=== PATIENT | female | born 1950 | race Caucasian/White ===

== ENCOUNTER → 2016-11-15 | Outpatient (REF) | payer OTHER ==
[~2016-11-15] MED LIST: /MELO7TA PO; /ONDA4TA OR; ADV100INH INH; ALBU1.25 IN; ALINIA PO; BENT20TA PO; BENZ100C5 PO; CALC600T9 PO; DIPHENHYDRAMINE PO; ICAPCAP3 PO; LOPERAMIDE PO; METO10TA2 OR; MOBIC PO; MULTCAP9 PO; NASOCORT INH; NASONEX; PAXI20TA OR; PAXI20TA3 PO; PRIL40CA PO; REGL10TA6 PO; TIZA4CAP PO; VIT D PO; antibiotic PO
[2016-11-15 13:30] LABS: BASO % 0.8 % (0.0-1.0); EOS # 0.1 K/mm3 (0.0-0.50); LARGE UNSTAINED CELL # 0.1 K/mm3 (0.0-0.4); LARGE UNSTAINED CELL % 1.6 % (0.0-4.0); LYMPH # 1.9 K/mm3 (1.5-4.5); LYMPH % 28.6 % (24.0-44.0); MEAN CORPUSCULAR HEMOGLOBIN 29.7 pg (27.0-33.0); MEAN CORPUSCULAR HGB CONC 33.6 g/dl (32.0-36.5); MEAN CORPUSCULAR VOLUME 88.4 fl (80.0-96.0); MONO # 0.3 K/mm3 (0.0-0.8); MONO % 4.1 % (0.0-5.0); NEUTROPHILS # 3.9 K/mm3 (1.8-7.7); PLATELET COUNT, AUTOMATED 162 k/mm3 (150-450); RED CELL DISTRIBUTION WIDTH 13.3 % (11.5-14.5); WHITE BLOOD COUNT 6.2 K/mm3 (4.0-10.0)
[2016-11-15 14:08] LABS: ALBUMIN 3.7 GM/DL (3.2-5.2); ALBUMIN/GLOBULIN RATIO 1.42 (1.00-1.93); ALKALINE PHOSPHATASE 70 U/L (45-117); ALT/SGPT 28 U/L (12-78); ANION GAP 6 MEQ/L (8-16); AST/SGOT 17 U/L (15-37); BILIRUBIN,TOTAL 0.4 MG/DL (0.2-1.0); BLOOD UREA NITROGEN 12 MG/DL (7-18); CALCIUM LEVEL 9.6 MG/DL (8.8-10.2); CARBON DIOXIDE LEVEL 29 MEQ/L (21-32); CHLORIDE LEVEL 104 MEQ/L (98-107); CHOLESTEROL LEVEL 192 MG/DL (<200); CREATININE FOR GFR 0.76 MG/DL (0.55-1.02); FREE T4 0.99 NG/DL (0.76-1.46); GLOMERULAR FILTRATION RATE > 60.0 (>45); GLUCOSE, FASTING 96 MG/DL (80-110); POTASSIUM SERUM 4.8 MEQ/L (3.5-5.1); SODIUM LEVEL 139 MEQ/L (136-145); TOTAL PROTEIN 6.3 GM/DL (6.4-8.2); TRIGLYCERIDES LEVEL 103 MG/DL (<150)
== END ==
LOC: M SFHCADAM 08:47
PROVIDERS: ATTEND Nurse Practitioner Family
DX: J01.00 Acute maxillary sinusitis, unspecified (principal); E78.2 Mixed hyperlipidemia; F34.1 Dysthymic disorder; E55.9 Vitamin D deficiency, unspecified

== ENCOUNTER → 2017-01-07 | Outpatient (CLI) | payer MEDICARE, OTHER ==
--- NOTE | 2017-01-07 13:56 | REP ---
Low-dose lung screening CT: Comparison is the CT with IV contrast dated 08/18/2001. There is a small calcified granuloma anteromedially in the right upper lobe on page 42, unchanged in size from the comparison study. There is a calcified granuloma in the left lower lobe on image 63, not significantly changed from the comparison study. There are no new nodules or masses. There is focal discoid atelectasis in the medial segment right middle lobe and inferiorly in the lingula. Impression: Category 1 screening low-dose chest CT. The recommendation is for annual low-dose lung screening CT. Signed by Bhargav Reardon MD 01/07/2017 01:46 P
== END ==
LOC: M RAD 12:38
PROVIDERS: ATTEND Nurse Practitioner Family
DX: F17.210 Nicotine dependence, cigarettes, uncomplicated (principal)

== ENCOUNTER → 2018-08-01 | Outpatient (CLI) | payer MEDICARE, OTHER ==
[~2018-08-01] MED LIST changes: -/MELO7TA PO; -/ONDA4TA OR; +FLON1SPR; +KEFL500C17 PO; +MOBI4TAB PO; +ONDA-1 OR; +PERC5TAB12 PO
--- NOTE | 2018-08-02 08:57 | REP ---
MRI lumbar spine without contrast: History: Degenerative disc disease. Burning in the low back. Herniated discs. Comparison MRI lumbar spine study November 04, 2012. Technique: Sagittal and axial T1 and T2-weighted scans are acquired in the usual fashion with and without fat saturation. Sequences include spin echo, turbo spin-echo, and STIR imaging sequences. MRI findings: There is a mild levoconvex curvature. There is a bilateral L4 spondylolysis and a 12 mm, grade 2 L4-5 spondylolisthesis is again noted. This is felt to be unchanged by my measurement from the 2013 prior study. There is bilateral L4-5 neural foraminal narrowing as a result also unchanged. Diffuse disc bulging is seen at the L4-5 disc level as before. There is borderline canal size. No liang central canal stenosis is seen. There is facet hypertrophy and osteoarthritic sclerosis bilaterally at L4-5. This may be slightly more prominent. At L5-S1, there is a left posterior disc protrusion which is seen extending cranially. This is a new finding. There is left ventral lateral thecal sac compression and left S root displacement and compression. This herniation spans a craniocaudal dimension of 10 mm. It is 8.5 mm in anteroposterior dimension. There is mild osteoarthritic facet hypertrophy bilaterally at L5-S1 as well. Mild facet encroachment on the left neural foramen is also noted. At L3-4, there is mild central canal stenosis due to minimal disc bulging, short pedicles, and ligamentum flavum and facet hypertrophy. This is slightly more prominent due to increase facet and ligamentum flavum hypertrophy. At L2-3, a there is degenerative disc disease with a irregularity of the endplates unchanged. Posterior disc bulging is seen. Mild central canal stenosis is noted. There is minimal ligamentum flavum hypertrophy. These findings are unchanged. At L1-2 there are also degenerative disc changes with Schmorl's nodes and reactive marrow changes. Diffuse disc bulging is seen indenting the thecal sac. No central canal stenosis is seen. Neural foramina appear intact. The tip of the conus medullaris is normal in position and appearance at T12-L1. No extra vertebral abnormality is observed. There is a stable perineural cyst at the S2 level unchanged. Impression: Degenerative spondylosis noted. Multilevel mild central canal stenosis. Changes are generally somewhat more prominent. Bilateral L4 spondylolysis and grade II L4-5 spondylolisthesis persists. There is a new finding in that there is a new left posterior L5-S1 disc extrusion with cranial extension producing thecal sac and left S1 root compression. Electronically Signed by Gabriel Nava MD 08/02/2018 09:49 A
== END ==
LOC: M RAD 17:39
PROVIDERS: ATTEND Physician Assistant Medical
DX: M51.26 Other intervertebral disc displacement, lumbar region (principal); M48.061 Spinal stenosis, lumbar region without neurogenic claudication; M47.816 Spondylosis without myelopathy or radiculopathy, lumbar region

== ENCOUNTER → 2018-10-30 | Outpatient (CLI) | payer MEDICARE, OTHER ==
--- NOTE | 2018-11-05 01:54 | ECWPNPC ---
PATIENT NAME: REYNA CABRERA : 1950 GENDER: FEMALE VISIT DATE: 10/30/2018 DISCHARGE DATE: 10/30/18 1524 VISIT LOCKED DATE TIME: PHYSICIAN: RUBINA RAMOS RESOURCE: RUBINA RAMOS REASON FOR APPOINTMENT 1. BACK HISTORY OF PRESENT ILLNESS PAIN SCREENIN68 YEAR OLD FEMALE IN FOR INITIAL PAIN CONSULT. SHE DESCRIBES THE PAIN ACHING, BURNING, AND NAGGING. SHE ALSO STATES HER PAIN HAS WORSENED RECENTLY SINCE A RECENT LOW BACK INJURY. SHE DOES STATE THAT SHE REFUSES TO GO ON NARCOTICS. RECENT MRI PERFORMED ON 08/01/18 SHOWS DEGENERATIVE SPONYDLOSIS, MULTILEVEL CENTERAL CANAL STENOSIS, L5-S1 DISC EXTRUSION, AND LEFT S1 ROOT COMPRESSION. PATIENT HAS A COMPLAINT OF ACUTE OR CHRONIC PAIN :YES FALL RISK SCREENING: SCREENING : NO FALLS IN THE PAST YEAR. GIL INVENTORY: QUESTIONNAIRE ASSESSEDTBD SCORE VALUE CALCULATED TBD CURRENT MEDICATIONS TAKING BENZONATATE 100 MG CAPSULE 1 CAPSULE ORALLY EVERY 4 HOURS NEEDED TAKING RETAINE C[facility] 0.5 % SOLUTION 1 DROP INTO AFFECTED EYE NEEDED OPHTHALMIC 24 TIME(S) A DAY TAKING ALBUTEROL SULFATE HFA 108 (90 BASE) MCG/ACT AEROSOL SOLUTION 2 PUFFS NEEDED INHALATION EVERY 4 HRS TAKING ADVAIR DISKUS 250-50 MCG/DOSE AEROSOL POWDER BREATH ACTIVATED 1 PUFF INHALATION TWICE A DAY TAKING OMEPRAZOLE 40 MG CAPSULE DELAYED RELEASE 1 CAPSULE ORALLY DAILY TAKING PAROXETINE HCL 40 MG TABLET 1 TABLET IN THE MORNING ORALLY ONCE A DAY TAKING MAY USE 25 MG 3/4 A DROPPER FUL SUBLINGUALLY DAILY TAKING MAY USE NOT-TAKING EXCEDRIN EXTRA STRENGTH 250-250-65 MG TABLET 2 TABLETS NEEDED FOR PAIN ORALLY NEEDED NOT-TAKING ASPIRIN ADULT LOW DOSE 81 MG TABLET DELAYED RELEASE 1 TABLET ORALLY ONCE A DAY DISCONTINUED BUDESONIDE (NASAL) 32 MCG/ACT SUSPENSION 2 PUFFS IN EACH NOSTRIL NASALLY TWICE DAILY DISCONTINUED ATORVASTATIN CALCIUM 10 MG TABLET 1 TABLET ORALLY ONCE A DAY AT BEDTIME DISCONTINUED VITAMIN D 2000 UNIT CAPSULE 1 CAP(S) ORALLY DAILY DISCONTINUED CALCIUM + D 600-200 MG-UNIT TABLET 1 TABLET WITH FOOD ORALLY DAILY DISCONTINUED AREDS OTC TABLET 1 TAB(S) P.O. 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 SINUS TUMOR 1985 DEPRESSION/PANIC ATTACKS/ HIATAL HERNIA/GERD - REINDL CHRONIC PATE- MIGRAINE/CLUSTER 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 DR CHRISTAL JASMINE, DR CARA CHAPMAN-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 - PT IS BEING FOLLOWED FOR RECONSTRUCTIVE SURGERY IN OCTOBER 2012 BACK PAIN - PAIN CLINIC KNEE PAIN -TORN MENISCUS - ORTHO OSTEOPENIA - HIPS DEXA 08/07 FX OF THE TIBIAL PLATEAU RIGHT KNEE ALLERGIES VICODIN: NAUSEA/VOMITING - ALLERGY SURGICAL HISTORY KNEE ARTHROSCOPY C SECTION RIGHT SINUS TUMOR REMOVAL 1985 LEFT CARPAL TUNNEL RELEASE 2001 TOTAL HYSTERECTOMY D/T FOR BLEEDING, BILATERAL OVARIES INTACT COLONOSCOPY - 2007 SEPTOPLASTY ([facility]) 10/2012 EGD REINDL - NORMAL 07/03 CARPAL TUNNEL RELEASE R 8 WISDOM TOOTH 11-16 FAMILY HISTORY FATHER: , MASSIVE HEART ATTACK AT 63 MOTHER: ALIVE 94 YRS, HTN, BLADDER CANCER NONINVASIVE, BOTH EYES MACULAR DEGENERATION, THYROID DISEASE SIBLINGS: ALIVE, BROTHER HAS HTN AND HX. OF ANEURYSM SON(S): ALIVE DAUGHTER(S): ALIVE PATERNAL GRAND FATHER: , ? CANCER PATERNAL GRAND MOTHER: , AL MATERNAL GRAND FATHER: , HTN MATERNAL GRAND MOTHER: 1 BROTHER(S) . 1 SON(S) , 1 DAUGHTER(S) - HEALTHY. BROTHER AAA, HYPERTENSION. SOCIAL HISTORY GENERAL: TOBACCO USE ARE YOU A:CURRENT SMOKER PT. IS CURRENTLY WORKING ON QUITTING WITH PCP ARE YOU INTERESTED IN QUITTING?READY TO QUIT PREVIOUS QUIT ATTEMPTS?YES, MORE THAN 6 MONTHS AGO. COUNSELED THE PATIENT ON TOBACCO USE, CESSATION [id number] HOW MANY CIGARETTES A DAY DO YOU SMOKE?21-30 HOW SOON AFTER YOU WAKE UP DO YOU SMOKE YOUR FIRST CIGARETTE?WITHIN 5 MIN HOW OFTEN DO YOU SMOKE CIGARETTES?EVERY DAY PATIENT COUNSELED ON THE DANGERS OF TOBACCO USE AND URGED TO QUIT:10/30/2018 OTHERS AT HOME: CHILD. EDUCATION LEVEL OF EDUCATION:FINISHED COLLEGE DIET: REGULAR. LANGUAGE LANGUAGES SPOKEN:MALAYSIAN RECREATIONAL DRUG USE DRUG USE?NO EXERCISE: NONE. LEARNING BARRIERS / SPECIAL NEEDS CHANGE FROM LAST VISIT?NO BARRIERS TO LEARNING?NO PAIN CLINIC PFS, CLERGY, PUBLIC HEALTH REFERRALS PFS REFERRAL NEEDED?NO CLERGY REFERRAL NEEDED?NO PUBLIC HEALTH REFERRAL NEEDED?NO WAS THE PROVIDER NOTIFIED OF ANY PERTINENT INFO?NO HAS THE PATIENT BEEN EDUCATED REGARDING HIS/HER PLAN OF CARE?YES HAS THE PATIENT BEEN EDUCATED REGARDING PAIN, THE RISK FOR PAIN, THE IMPORTANCE OF EFFECTIVE PAIN MANAGEMENT, AND THE PAIN ASSESSMENT PROCESS?YES LATEX QUESTIONNAIRE LATEX ALLERGY : HAVE YOU EVER DEVELOPED ANY TYPE OF REACTION AFTER HANDLING LATEX PRODUCTS SUCH RUBBER GLOVES, CONDOMS, DIAPHRAGMS, BALLOONS, SOCKS, OR UNDERWEAR?NO LATEX ALLERGY : HAVE YOU EVER DEVELOPED ANY TYPE OF REACTION DURING OR AFTER DENTAL APPOINTMENT, VAGINAL/RECTAL EXAMINATION, SURGICAL PROCEDURE, OR ANY OTHER EXPOSURE?NO LATEX RISK : HAVE YOU EVER HAD ANY DIFFICULTY BREATHING OR HIVES AFTER EATING OR HANDLING ANY FRUITS, OR VEGETABLES; SUCH KIWI, BANANAS, STONE FRUITS, OR CHESTNUTSNO LATEX RISK : DO YOU HAVE A PREVIOUS PERSONAL HISTORY OF MORE THAN NINE SURGERIES, SPINA BIFIDA, OR REPEATED CATHERTIZATIONS? NO LATEX RISK : ARE YOU FREQUENTLY EXPOSED TO LATEX PRODUCTS IN YOUR OCCUPATION?NO DATE ASKED : 10/30/2018 CAFFEINE CAFFEINE USE?YES HOW OFTEN AND HOW MUCH? 6 CUPS OF COFFEE PER DAY ADVANCE DIRECTIVE ADVANCE DIRECTIVE DISCUSSED WITH PATIENT:YES 10/30/18 @ 1438 PT. DECLINES INFORMATION LATTER DAY [id number] YAZIDISM MARITAL STATUS: .. 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 HOSPITALIZATION/MAJOR DIAGNOSTIC PROCEDURE PARASITIC INFECTION 09/2010 REVIEW OF SYSTEMS REVIEWED BY: PROVIDER: GELA PEÑA . CONSTITUTIONAL: ANY CHANGE IN YOUR MEDICAL CONDITION? YES, BRONCHITIS 09/26/18 . CHILLS NO . FEVER NO . INFECTION: DO YOU HAVE NEW INFECTIONS? NO . DO YOU HAVE HISTORY OF MRSA? NO . MUSCULOSKELETAL: ANY NEW PATTERNS OF PAIN OR NUMBNESS? YES, LOW BACK DOWN BILATERAL LEGS . SYTEMIC LUPUS NO . GASTROENTEROLOGY: ANY NEW CHANGE IN BOWEL CONTROL? YES, PCP AWARE OF CONSTIPATION . BARRETTS ESOPHAGUS NO . CIRRHOSIS NO . HEPATITIS NO . LIVER FAILURE NO . ACID REFLUX YES . UNEXPLAINED WEIGHT LOSS NO . GENITOURINARY: ANY NEW CHANGE IN BLADDER CONTROL? NO . IS THERE A CHANCE YOU COULD BE ? NO . HEMATOLOGY/LYMPH: DO YOU TAKE ANY BLOOD THINNERS? (FOR EXAMPLE- COUMADIN, PLAVIX, AGGRENOX, PLATEL, PRADAXA, OR XARELTO) NO . WHEN WAS YOUR LAST DOSE? DATE: TIME: . LOW PLATELET COUNT NO . SICKLE CELL DISEASE NO . VON WILLIEBRANDS NO . FACTOR V LEIDEN NO . THALLASEMIA NO . ANEMIA NO . EASY BRUISING NO . NEUROLOGY: HAVE YOU FALLEN IN THE PAST 12 MONTHS? YES, SLIPPED ON ICE, TRIPPED OVER A RUG . ANY NEW EXTREMITY NUMBNESS OR WEAKNESS? YES,BILATER HIPS, GROIN,UPPER THIGHS . HEAD INJURY NO . DEMENTIA NO . CEREBRAL PALSY NO . MULTIPLE SCLEROSIS NO . DIZZINESS NO . HEADACHE FREQUENT . STROKES NO . VERTIGO NO . CARDIOLOGY: DO YOU HAVE A PACEMAKER OR DEFIBRILLATOR? NO . ANGINA NO . HEART ATTACK NO . HEART SURGERY NO . CONGESTIVE HEART FAILURE/FLUID OVERLOAD NO . CHEST PAIN NO . HIGH BLOOD PRESSURE NO . IRREGULAR HEART BEAT NO . RESPIRATORY: HAVE YOU BEEN SICK IN THE PAST WEEK? NO . FEVER NO . FLU LIKE SYMPTOMS? NO . CPAP NO . BYPAP NO . ASTHMA NO . EMPHYSEMA NO . CHRONIC LUNG DISEASES YES, COPD . SHORTNESS OF BREATH ON EXERTION NO . DO YOU USE ANY TYPE OF TOBACCO (SMOKE, SMOKELESS, CHEW)? YES . COUGH NO . SNORING NO . INTEGUMENTARY: DO YOU HAVE ANY RASHES OR OPEN SORES? NO . ALLERGIC/IMMUNO: ARE YOU ALLERGIC TO IV DYE? NO . ANY NEW ALLERGIES? NO . PSYCHIATRIC: DO YOU HAVE THOUGHTS OF HURTING YOURSELF OR SOMEONE ELSE? NO . ARE YOU ABUSED, NEGLECTED, OR IN AN UNSAFE ENVIRONMENT? NO . ENDOCRINOLOGY: ARE YOU DIABETIC? NO . THYROID DISORDER NO . OTHER: DO YOU NEED ANY PRESCRIPTIONS? NO, DO NOT WANT NARCOTICS . IF YES, PLEASE LIST: ____ . ANY NEW PROBLEMS WITH YOUR MEDICATIONS? NO . WHEN DID YOU LAST EAT? ____ . WHEN DID YOU LAST DRINK? ____ . WHAT DID YOU LAST DRINK? ____ . NAME OF PERSON DRIVING YOU HOME? ____ . DO YOU HAVE ANY OTHER QUESTIONS OR CONCERNS NO . VITAL SIGNS WT 150.4 LBS, HT 64 IN, BMI 25.81 INDEX, BP 139/71 MM HG, HR 86 /MIN, RR 18 /MIN, TEMP 97.3 F, OXYGEN SAT % 92%, SAFE IN ENV? (Y/N) YES, NA INITIALS AW 1352, REVIEWED BY: FAVIOLA. EXAMINATION GENERAL EXAMINATION: GENERALNO ACUTE DISTRESS, WELL NOURISHED AND HYDRATED. PSYCHAPPROPRIATE MOOD AND AFFECT . LUNGS:CLEAR TO AUSCULTATION BILATERALLY, NO WHEEZES, RHONCHI, RALES. HEART:NO MURMURS, REGULAR RATE AND RHYTHM. BACK: POINT TENDER LOWER LUMBAR AREA, POSITIVE STRAIGHT LEG RAISE TEST. DIAGNOSTIC TESTS REVIEWEDRECENT MRI REVIEWED 09/26/18. ASSESSMENTS SPONDYLOSIS OF LUMBOSACRAL JOINT - M47.817 (PRIMARY) TREATMENT SPONDYLOSIS OF LUMBOSACRAL JOINT START DICLOFENAC SODIUM TABLET DELAYED RELEASE, 50 MG, 1 TABLET WITH FOOD OR MILK, ORALLY, THREE TIMES A DAY, 30 DAY(S), 90 CLINICAL NOTES: 64 YEAR OLD FEMALE IN FOR NEW PATIENT CONSULT CONCERNING LOW BACK PAIN WITH RADICULOPATHY. GIVEN PRESENTING SYMPTOMS AND RESULTS OF PHYSICAL EXAMINATION RECOMMENDED STARTING DICLOFENAC 50MG TID PRN, AND LESI OF L4-L5, L5-S1. PATIENT HAS EXPRESSED UNDERSTANDING OF AND WAS IN AGREEMENT WITH TX PLAN. GIVEN TIME TO ASK QUESTIONS AND EXPRESS CONCERNS. ENCOURAGED TO CALL THE OFFICE SHOULD HAVE FURTHER QUESTIONS. . OTHERS NOTES: LESI L4-L5, L5-S1,OPTIONS: SPINAL CORTICOSTEROID INJECTION MATERIAL WAS PRINTED. PROCEDURE CODES [id number] ESTABILISHED PATIENT [facility] CHARGE DISPOSITION & COMMUNICATION FOLLOW UP POST PROCEDURE (REASON: LESI L4,L5,L5-S1) ELECTRONICALLY SIGNED BY SANTOSH MANDEL ON 11/04/2018 AT 09:55 AM EDT DISCLAIMER : THIS IS A VISIT SUMMARY EXTRACTED FROM THE [employer] CHART. IT IS NOT A COPY OF THE [employer] PROGRESS NOTE. LELIA
== END ==
LOC: M PAIN 14:00
PROVIDERS: ATTEND Family Medicine
DX: M47.817 Spondylosis without myelopathy or radiculopathy, lumbosacral region (principal); E78.2 Mixed hyperlipidemia; J32.9 Chronic sinusitis, unspecified; J30.9 Allergic rhinitis, unspecified; F32.9 Major depressive disorder, single episode, unspecified; F41.0 Panic disorder [episodic paroxysmal anxiety]; K44.9 Diaphragmatic hernia without obstruction or gangrene; K21.9 Gastro-esophageal reflux disease without esophagitis; M85.80 Other specified disorders of bone density and structure, unspecified site; F17.210 Nicotine dependence, cigarettes, uncomplicated; Z79.899 Other long term (current) drug therapy; Z88.5 Allergy status to narcotic agent

== ENCOUNTER → 2018-12-16 | Outpatient (CLI) | payer MEDICARE, OTHER ==
[~2018-12-16] MED LIST changes: +BUPIVACAINE HCL 0.25% 30 ML VIAL As Ordered ONE; +ISOVUE-M 200 41% 20ML VIAL (Q9966) As Ordered ONE; +LIDOCAINE 1% SDV INJ 30 ML VIAL As Ordered ONE; +TRIAMCINOLONE ACETONIDE SUSP 40 MG/ML VIAL (J3301) As Ordered ONE; +diazePAM 5 MG TAB As Ordered ONE; +oxyCODONE 5MG TAB As Ordered ONE
--- NOTE | 2018-12-16 18:35 | REP ---
FLUOROSCOPIC GUIDANCE FOR BILATERAL LUMBAR FACET BLOCK: 12/16/2018. Clinical history: Back pain. Findings: Two images from C-arm fluoroscopy provided to Dr. Myrick of the pain clinic for lumbar facet block. [place] at the L4-5 and L5-S1 facets are seen on the single image for each side. Fluoroscopy time: 23 seconds. Electronically Signed by Constantin Araiza MD 12/16/2018 07:47 P
--- NOTE | 2018-12-20 00:10 | ECWPNPC ---
PATIENT NAME: REYNA CABRERA : 1950 GENDER: FEMALE VISIT DATE: 12/16/2018 DISCHARGE DATE: 12/16/18 1138 VISIT LOCKED DATE TIME: PHYSICIAN: BEAR GOLDSTEIN MD RESOURCE: BEAR GOLDSTEIN MD REASON FOR APPOINTMENT 1. BILATERAL L4-L5, L5-S1 FACET BLOCK HISTORY OF PRESENT ILLNESS HISTORY OF PRESENT ILLNESS: PAIN THE PATIENT DESCRIBES THE PAIN... 68 YEAR OLD FEMALE PATIENT WITH A HISTORY OF CHRONIC LOW BACK PAIN. THE PATIENT DESCRIBES THE PAIN 6-9/10 DEPENDING ON PHYSICAL ACTIVITY. THE PATIENT STATES THE PAIN BEGINS IN HER LOW BACK AND RADIATES INTO HER HIPS. THE PATIENT SAYS HER PAIN FEELS LIKE A BURNING SENSATION IN HER LOWER BACK AREA. PATIENT DENIES UNEXPLAINABLE WEIGHT LOSS, FEVER, CHILLS, NEW CHANGES ON HER URINARY OR BOWEL CONTROL. FALL RISK SCREENING: SCREENING :NO FALLS REPORTED IN THE LAST YEAR CURRENT MEDICATIONS TAKING BENZONATATE 100 MG CAPSULE 1 CAPSULE ORALLY EVERY 4 HOURS NEEDED TAKING RETAINE CMC 0.5 % SOLUTION 1 DROP INTO AFFECTED EYE NEEDED OPHTHALMIC 24 TIME(S) A DAY TAKING ALBUTEROL SULFATE HFA 108 (90 BASE) MCG/ACT AEROSOL SOLUTION 2 PUFFS NEEDED INHALATION EVERY 4 HRS TAKING ADVAIR DISKUS 250-50 MCG/DOSE AEROSOL POWDER BREATH ACTIVATED 1 PUFF INHALATION TWICE A DAY TAKING OMEPRAZOLE 40 MG CAPSULE DELAYED RELEASE 1 CAPSULE ORALLY DAILY TAKING PAROXETINE HCL 40 MG TABLET 1 TABLET IN THE MORNING ORALLY ONCE A DAY TAKING MAY USE 25 MG CBD OIL 3/4 A DROPPER FUL SUBLINGUALLY DAILY TAKING DICLOFENAC SODIUM 50 MG TABLET DELAYED RELEASE 1 TABLET WITH FOOD OR MILK ORALLY THREE TIMES A DAY TAKING EXCEDRIN EXTRA STRENGTH 250-250-65 MG TABLET 2 TABLETS NEEDED FOR PAIN ORALLY NEEDED NOT-TAKING MAY USE NOT-TAKING ASPIRIN ADULT LOW DOSE 81 MG TABLET DELAYED RELEASE 1 TABLET ORALLY ONCE A DAY MEDICATION LIST REVIEWED AND RECONCILED WITH THE PATIENT PAST MEDICAL HISTORY DYSLIPIDEMIA- MIXED HYPERLIPIDEMIA S/P CARDIAC CATH D/T ABN EKG RECURRENT SINUSITIS - IMPROVED S/P SURGERY ALLERGIC RHINITIS RIGHT ETHMOID TUMOR THAT WAS RESECTED IN THE EARLY RT SINUS TUMOR 1985 DEPRESSION/PANIC ATTACKS/ HIATAL HERNIA/GERD - REINDL CHRONIC PATE- MIGRAINE/CLUSTER 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 DR CHRISTAL JASMINE, DR CARA CHAPMAN-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 - PT IS BEING FOLLOWED FOR RECONSTRUCTIVE SURGERY IN OCTOBER 2012 BACK PAIN - PAIN CLINIC KNEE PAIN -TORN MENISCUS - ORTHO OSTEOPENIA - HIPS DEXA 08/07 FX OF THE TIBIAL PLATEAU RIGHT KNEE ALLERGIES VICODIN: NAUSEA/VOMITING - ALLERGY SURGICAL HISTORY KNEE ARTHROSCOPY C SECTION RIGHT SINUS TUMOR REMOVAL 1985 LEFT CARPAL TUNNEL RELEASE 2001 TOTAL HYSTERECTOMY D/T FOR BLEEDING, BILATERAL OVARIES INTACT COLONOSCOPY -NL 2007 SEPTOPLASTY ([facility]) 10/2012 EGD REINDL - NORMAL 07/03 CARPAL TUNNEL RELEASE R 8 WISDOM TOOTH 11-16 FAMILY HISTORY FATHER: , MASSIVE HEART ATTACK AT 65 MOTHER: ALIVE 94 YRS, HTN, BLADDER CANCER NONINVASIVE, BOTH EYES MACULAR DEGENERATION, THYROID DISEASE SIBLINGS: ALIVE, BROTHER HAS HTN AND HX. OF ANEURYSM SON(S): ALIVE DAUGHTER(S): ALIVE PATERNAL GRAND FATHER: , ? CANCER PATERNAL GRAND MOTHER: , [place] MATERNAL GRAND FATHER: , HTN MATERNAL GRAND MOTHER: 1 BROTHER(S) . 1 SON(S) , 1 DAUGHTER(S) - HEALTHY. BROTHER AAA, HYPERTENSION. SOCIAL HISTORY GENERAL: TOBACCO USE ARE YOU A:CURRENT SMOKER PT. IS CURRENTLY WORKING ON QUITTING WITH PCP ARE YOU INTERESTED IN QUITTING?READY TO QUIT PREVIOUS QUIT ATTEMPTS?YES, MORE THAN 6 MONTHS AGO. COUNSELED THE PATIENT ON TOBACCO USE, CESSATION [id number]/27/2019 HOW MANY CIGARETTES A DAY DO YOU SMOKE?21-30 HOW SOON AFTER YOU WAKE UP DO YOU SMOKE YOUR FIRST CIGARETTE?WITHIN 5 MIN HOW OFTEN DO YOU SMOKE CIGARETTES?EVERY DAY PATIENT COUNSELED ON THE DANGERS OF TOBACCO USE AND URGED TO QUIT:12/16/2018 OTHERS AT HOME: CHILD. EDUCATION LEVEL OF EDUCATION:FINISHED COLLEGE DIET: REGULAR. LANGUAGE LANGUAGES SPOKEN:ICELANDIC RECREATIONAL DRUG USE DRUG USE?NO EXERCISE: NONE. LEARNING BARRIERS / SPECIAL NEEDS CHANGE FROM LAST VISIT?NO BARRIERS TO LEARNING?NO PAIN CLINIC PFS, CLERGY, PUBLIC HEALTH REFERRALS PFS REFERRAL NEEDED?NO CLERGY REFERRAL NEEDED?NO PUBLIC HEALTH REFERRAL NEEDED?NO WAS THE PROVIDER NOTIFIED OF ANY PERTINENT INFO?NO HAS THE PATIENT BEEN EDUCATED REGARDING HIS/HER PLAN OF CARE?YES HAS THE PATIENT BEEN EDUCATED REGARDING PAIN, THE RISK FOR PAIN, THE IMPORTANCE OF EFFECTIVE PAIN MANAGEMENT, AND THE PAIN ASSESSMENT PROCESS?YES LATEX QUESTIONNAIRE LATEX ALLERGY : HAVE YOU EVER DEVELOPED ANY TYPE OF REACTION AFTER HANDLING LATEX PRODUCTS SUCH RUBBER GLOVES, CONDOMS, DIAPHRAGMS, BALLOONS, SOCKS, OR UNDERWEAR?NO LATEX ALLERGY : HAVE YOU EVER DEVELOPED ANY TYPE OF REACTION DURING OR AFTER DENTAL APPOINTMENT, VAGINAL/RECTAL EXAMINATION, SURGICAL PROCEDURE, OR ANY OTHER EXPOSURE?NO LATEX RISK : HAVE YOU EVER HAD ANY DIFFICULTY BREATHING OR HIVES AFTER EATING OR HANDLING ANY FRUITS, OR VEGETABLES; SUCH KIWI, BANANAS, STONE FRUITS, OR CHESTNUTSNO LATEX RISK : DO YOU HAVE A PREVIOUS PERSONAL HISTORY OF MORE THAN NINE SURGERIES, SPINA BIFIDA, OR REPEATED CATHERIZATIONS? NO LATEX RISK : ARE YOU FREQUENTLY EXPOSED TO LATEX PRODUCTS IN YOUR OCCUPATION?NO DATE ASKED : 10/30/2018 CAFFEINE CAFFEINE USE?YES HOW OFTEN AND HOW MUCH? 6 CUPS OF COFFEE PER DAY ADVANCE DIRECTIVE ADVANCE DIRECTIVE DISCUSSED WITH PATIENT:YES PATIENT DECLINES HCP INFORMATION AT THIS TIME. CHRISTIANITY [id number] SCIENTOLOGIST MARITAL STATUS: .. 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 REVIEWED WITH PATIENT 12/16/18 4686 JS. HOSPITALIZATION/MAJOR DIAGNOSTIC PROCEDURE PARASITIC INFECTION 09/2010 REVIEW OF SYSTEMS REVIEWED BY: PROVIDER: BEAR GOLDSTEIN MD . CONSTITUTIONAL: ANY CHANGE IN YOUR MEDICAL CONDITION? NO . CHILLS NO . FEVER NO . INFECTION: DO YOU HAVE NEW INFECTIONS? NO . DO YOU HAVE HISTORY OF MRSA? NO . MUSCULOSKELETAL: ANY NEW PATTERNS OF PAIN OR NUMBNESS? NO . GASTROENTEROLOGY: ANY NEW CHANGE IN BOWEL CONTROL? NO . GENITOURINARY: ANY NEW CHANGE IN BLADDER CONTROL? NO . IS THERE A CHANCE YOU COULD BE ? NO . HEMATOLOGY/LYMPH: DO YOU TAKE ANY BLOOD THINNERS? (FOR EXAMPLE- COUMADIN, PLAVIX, AGGRENOX, PLATEL, PRADAXA, OR XARELTO) NO . WHEN WAS YOUR LAST DOSE? DATE: TIME: . NEUROLOGY: HAVE YOU FALLEN IN THE PAST 12 MONTHS? YES, STATES PRIOR TO LAST VISIT, DISCUSSED AT LAST VISIT . ANY NEW EXTREMITY NUMBNESS OR WEAKNESS? NO . CARDIOLOGY: DO YOU HAVE A PACEMAKER OR DEFIBRILLATOR? NO . RESPIRATORY: HAVE YOU BEEN SICK IN THE PAST WEEK? NO . FEVER NO . FLU LIKE SYMPTOMS? NO . COUGH NO . INTEGUMENTARY: DO YOU HAVE ANY RASHES OR OPEN SORES? NO . ALLERGIC/IMMUNO: ARE YOU ALLERGIC TO IV DYE? NO . ANY NEW ALLERGIES? NO . PSYCHIATRIC: DO YOU HAVE THOUGHTS OF HURTING YOURSELF OR SOMEONE ELSE? NO . ARE YOU ABUSED, NEGLECTED, OR IN AN UNSAFE ENVIRONMENT? NO . ENDOCRINOLOGY: ARE YOU DIABETIC? NO . OTHER: DO YOU NEED ANY PRESCRIPTIONS? NO . IF YES, PLEASE LIST: ____ . ANY NEW PROBLEMS WITH YOUR MEDICATIONS? NO . WHEN DID YOU LAST EAT? ____12/15/18 1900 . WHEN DID YOU LAST DRINK? ____12/16/18 0645 . WHAT DID YOU LAST DRINK? ____WATER . NAME OF PERSON DRIVING YOU HOME? ____ESTRELLA MTZ . DO YOU HAVE ANY OTHER QUESTIONS OR CONCERNS NO . VITAL SIGNS WT 147.8 LBS, HT 64 IN, BMI 25.37 INDEX, BP 139/73 MM HG, HR 61 /MIN, RR 18 /MIN, TEMP 97.4 F, OXYGEN SAT % 97%, SAFE IN ENV? (Y/N) YES, NA INITIALS WI 08:47, REVIEWED BY: LUCIEN. EXAMINATION GENERAL EXAMINATION: PATIENT IS ALERT O X 3 AND COOPERATIVE. PAIN INCREASES OVER THE LUMBAR FACET JOINTS WITH EXTENSION AND LATERAL ROTATION OF THE BACK. MRI OF THE LUMBAR SPINE DONE ON 08/01/2018 SHOWS GRADE 2 L4-L5 SPONDYLOLISTHESIS AND FACET ARTHROPATHY CHANGES AT L4-L5 AND L5-S1 LEVELS. ASSESSMENTS SPONDYLOSIS OF LUMBOSACRAL JOINT - M47.817 (PRIMARY) SPONDYLOSIS OF LUMBAR REGION WITHOUT MYELOPATHY OR RADICULOPATHY - M47.816 TREATMENT SPONDYLOSIS OF LUMBOSACRAL JOINT SMC FACET BLOCK (PAIN)[id number] CLINICAL NOTES: WE DISCUSSED SEVERAL ISSUES WITH MS. CABRERA'S PAIN MANAGEMENT CASE. DUE TO THE LUMBAR SPONDYLOSIS, I WOULD LIKE TO MOVE FORWARD WITH A THERAPEUTIC LUMBAR FACET BLOCK AT THIS TIME. WE DISCUSSED THE BENEFITS, RISKS, AND ALTERNATIVES OF THE INJECTION AND THE PATIENT WOULD LIKE TO PROCEED. THE PATIENT WILL FOLLOW UP IN SEVERAL WEEKS AFTER THE INJECTION. INSTRUCTIONS WERE GIVEN, QUESTIONS WERE ANSWERED, PATIENT REPORTS UNDERSTANDING AND AGREES WITH THE PLAN. I, MISAEL MAGALLANES, DOCUMENTED THE ABOVE INFORMATION ACTING A SCRIBE FOR DR. GOLDSTEIN. I HAVE REVIEWED THE ABOVE DOCUMENT, WRITTEN BY MISAEL MAGALLANES SCRIBBalbir AND I VERIFY THAT IT IS ACCURATE. . PROCEDURES PN LUMBAR FACET BLOCK THERAPEUTIC PRE PROCEDURE DIAGNOSIS LUMBAR SPONDYLOSIS, LUMBOSACRAL SPONDYLOSIS POST PROCEDURE DIAGNOSIS LUMBAR SPONDYLOSIS, LUMBOSACRAL SPONDYLOSIS PROCEDURE BILATERAL L4 - L5, L5 - S1 LUMBAR FACET THERAPEUTIC BLOCK SURGEON DR. BEAR GOLDSTEIN BOWLING BALL ASSEMBLER NONE ANESTHESIA LOCAL PRE PROCEDURE NOTE THE PATIENT HAS A HISTORY OF CHRONIC LOW BACK PAIN. I EVALUATED THE PATIENT AND REVIEWED THE CHART. I WENT OVER THE RISKS, ALTERNATIVES, AND BENEFITS ASSOCIATED WITH THIS PROCEDURE. THE PATIENT WOULD LIKE TO PROCEED AND GIVE CONSENT TO PERFORMED THE PROCEDURE. THE PATIENT DENIES UNEXPLAINABLE WEIGHT LOSS, FEVER, CHILLS, OR NEW CHANGES IN URINARY OR BOWEL CONTROL DESCRIPTION OF PROCEDURE THE PATIENT WAS BROUGHT TO THE PROCEDURE ROOM AND PLACED IN THE PRONE POSITION. THE LUMBOSACRAL AREA WAS CLEANED WITH CHLORAPREP SOLUTION AND DRAPED ASEPTICALLY. THE PROCEDURE WAS DONE UNDER STERILE CONDITIONS. I CHECKED LATERALITY AND THE LEVEL WHERE THE PROCEDURE WAS GOING TO BE PERFORMED WITH THE PATIENT AND THE SUPPORTING STAFF AT THE MOMENT OF THE TIME OUT IN THE PROCEDURE ROOM. UNDER FLUOROSCOPIC GUIDANCE, THE TARGET POINT WAS SELECTED AT THE RIGHT AND LEFT L4-L5, AND RIGHT AND LEFT L5-S1 FACET JOINTS. TARGET POINT WAS SELECTED AFTER LATERAL ROTATION AND TILT OF THE MAGNIFIER OF THE C-ARM. LIDOCAINE 0.5% WAS USED TO NUMB THE SKIN AND THE SUBCUTANEOUS TISSUE BELOW IT. SPINAL NEEDLES, 22-GAUGE, WERE ADVANCED UNDER FLUOROSCOPIC GUIDANCE AND FOLLOWING PATIENT FEEDBACK UNTIL THE TARGETS WERE TOUCHED. THE POSITION OF THE NEEDLES WAS VERIFIED WITH AP AND LATERAL VIEWS. AFTER PROPER POSITION OF THE NEEDLES WAS ACHIEVED, ISOVUE M-200 CONTRAST WAS INJECTED SHOWING ADEQUATE SPREAD OF THE DYE. THEN A SOLUTION OF 1.9 ML OF BUPIVACAINE 0.125% OF KENALOG 10 MG WAS INJECTED AT EACH SITE. THERE WAS NO EVIDENCE OF BLOOD, PARESTHESIA OR CEREBROSPINAL FLUID DURING THE PROCEDURE. THE PATIENT WAS SENT TO THE RECOVERY ROOM. THE PATIENT WAS MOVING THE EXTREMITIES AND DOING WELL. THERE WAS NO COMPLICATION DURING THE PROCEDURE. FLUOROSCOPY TIME WAS 23 SECONDS POST PROCEDURE NOTE THE PATIENT WILL BE SEEN IN A FOLLOW UP IN THE NEXT FEW WEEKS. INSTRUCTIONS WERE GIVEN, QUESTIONS WERE ANSWERED, AND THE PATIENT EXPRESSED UNDERSTANDING AND AGREES WITH THE PLAN. I, MISAEL MAGALLANES, DOCUMENTED THE ABOVE INFORMATION ACTING A SCRIBE FOR DR. GOLDSTEIN. I HAVE REVIEWED THE ABOVE DOCUMENT, WRITTEN BY MISAEL MAGALLANES SCRIBBalbir AND I VERIFY THAT IT IS ACCURATE. PROCEDURE CODES 74788 INJ PARAVERT F JNT L/S 1 LEV, MODIFIERS: 50 [id number] INJ PARAVERT F JNT L/S 2 LEV, MODIFIERS: 50 [id number] RADXPS IN END [id number] PXD DISPOSITION & COMMUNICATION FOLLOW UP 3 WEEKS ELECTRONICALLY SIGNED BY BEAR GOLDSTEIN MD, MD ON 12/19/2018 AT 04:58 PM EDT DISCLAIMER : THIS IS A VISIT SUMMARY EXTRACTED FROM THE [email or web address] CHART. IT IS NOT A COPY OF THE [email or web address] PROGRESS NOTE. MTDD
== END ==
LOC: M PAIN 09:15
PROVIDERS: ATTEND Anesthesiology
DX: G89.29 Other chronic pain (principal); M47.817 Spondylosis without myelopathy or radiculopathy, lumbosacral region; M47.816 Spondylosis without myelopathy or radiculopathy, lumbar region; M54.5 Low back pain; Z79.899 Other long term (current) drug therapy; Z88.5 Allergy status to narcotic agent; F17.210 Nicotine dependence, cigarettes, uncomplicated
CPT/HCPCS: 64493; 64494; J3301; Q9966

== ENCOUNTER → 2018-12-30 | Outpatient (CLI) | payer MEDICARE, OTHER ==
[~2018-12-30] MED LIST changes: -BUPIVACAINE HCL 0.25% 30 ML VIAL As Ordered ONE; -ISOVUE-M 200 41% 20ML VIAL (Q9966) As Ordered ONE; -LIDOCAINE 1% SDV INJ 30 ML VIAL As Ordered ONE; -TRIAMCINOLONE ACETONIDE SUSP 40 MG/ML VIAL (J3301) As Ordered ONE; -diazePAM 5 MG TAB As Ordered ONE; -oxyCODONE 5MG TAB As Ordered ONE
--- NOTE | 2019-01-01 01:19 | ECWPNPC ---
PATIENT NAME: REYNA CABRERA : 1950 GENDER: FEMALE VISIT DATE: 12/30/2018 DISCHARGE DATE: 12/30/18 1440 VISIT LOCKED DATE TIME: PHYSICIAN: RUBINA RAMOS RESOURCE: RUBINA RAMOS REASON FOR APPOINTMENT 1. POST PROC HISTORY OF PRESENT ILLNESS HISTORY OF PRESENT ILLNESS: PAIN THE PATIENT DESCRIBES THE PAIN... 68-YEAR-OLD FEMALE IN FOR FOLLOW-UP STATUS POST BILATERAL L4-L5 L5-S1 THERAPEUTIC FACET BLOCK. PATIENT FEELS THE PROCEDURE WORKED WELL SHE RATES HER PAIN PREPROCEDURE AT A 6 OUT OF 10 AND POSTPROCEDURE AT A 2 OUT OF 10. SHE RATES HER PAIN CURRENTLY AT A 2 OUT OF 10 AND DESCRIBES IT ACHING, BURNING, AND TENDER. FALL RISK SCREENING: SCREENING :NO FALLS REPORTED IN THE LAST YEAR CURRENT MEDICATIONS TAKING BENZONATATE 100 MG CAPSULE 1 CAPSULE ORALLY EVERY 4 HOURS NEEDED TAKING RETAINE CMC 0.5 % SOLUTION 1 DROP INTO AFFECTED EYE NEEDED OPHTHALMIC 24 TIME(S) A DAY TAKING ALBUTEROL SULFATE HFA 108 (90 BASE) MCG/ACT AEROSOL SOLUTION 2 PUFFS NEEDED INHALATION EVERY 4 HRS TAKING ADVAIR DISKUS 250-50 MCG/DOSE AEROSOL POWDER BREATH ACTIVATED 1 PUFF INHALATION TWICE A DAY TAKING OMEPRAZOLE 40 MG CAPSULE DELAYED RELEASE 1 CAPSULE ORALLY DAILY TAKING PAROXETINE HCL 40 MG TABLET 1 TABLET IN THE MORNING ORALLY ONCE A DAY TAKING MAY USE 25 MG CBD OIL 3/4 A DROPPER FUL SUBLINGUALLY DAILY TAKING EXCEDRIN EXTRA STRENGTH 250-250-65 MG TABLET 2 TABLETS NEEDED FOR PAIN ORALLY NEEDED NOT-TAKING DICLOFENAC SODIUM 50 MG TABLET DELAYED RELEASE 1 TABLET WITH FOOD OR MILK ORALLY THREE TIMES A DAY NOT-TAKING MAY USE NOT-TAKING ASPIRIN ADULT LOW DOSE 81 MG TABLET DELAYED RELEASE 1 TABLET ORALLY ONCE A DAY MEDICATION LIST REVIEWED AND RECONCILED WITH THE PATIENT PAST MEDICAL HISTORY DYSLIPIDEMIA- MIXED HYPERLIPIDEMIA S/P CARDIAC CATH D/T ABN EKG RECURRENT SINUSITIS - IMPROVED S/P SURGERY ALLERGIC RHINITIS RIGHT ETHMOID TUMOR THAT WAS RESECTED IN THE EARLY RT SINUS TUMOR 1985 DEPRESSION/PANIC ATTACKS/ HIATAL HERNIA/GERD - REINDL CHRONIC PATE- MIGRAINE/CLUSTER 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 DR CHRISTAL JASMINE, DR CARA CHAPMAN-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 - PT IS BEING FOLLOWED FOR RECONSTRUCTIVE SURGERY IN OCTOBER 2012 BACK PAIN - PAIN CLINIC KNEE PAIN -TORN MENISCUS - ORTHO OSTEOPENIA - HIPS DEXA 08/07 FX OF THE TIBIAL PLATEAU RIGHT KNEE ALLERGIES VICODIN: NAUSEA/VOMITING - SIDE EFFECTS SURGICAL HISTORY KNEE ARTHROSCOPY-RIGHT C SECTION RIGHT SINUS TUMOR REMOVAL 1985 LEFT CARPAL TUNNEL RELEASE 2001 TOTAL HYSTERECTOMY D/T FOR BLEEDING, BILATERAL OVARIES INTACT COLONOSCOPY -NL 2007 SEPTOPLASTY ([facility]) 10/2012 EGD REINDL - NORMAL 07/03 CARPAL TUNNEL RELEASE R 8-04-04 WISDOM TOOTH 11-16 FAMILY HISTORY FATHER: , MASSIVE HEART ATTACK AT 65 MOTHER: ALIVE 94 YRS, HTN, BLADDER CANCER NONINVASIVE, BOTH EYES MACULAR DEGENERATION, THYROID DISEASE SIBLINGS: ALIVE, BROTHER HAS HTN AND HX. OF ANEURYSM SON(S): ALIVE DAUGHTER(S): ALIVE PATERNAL GRAND FATHER: , ? CANCER PATERNAL GRAND MOTHER: , [place] MATERNAL GRAND FATHER: , HTN MATERNAL GRAND MOTHER: 1 BROTHER(S) . 1 SON(S) , 1 DAUGHTER(S) - HEALTHY. BROTHER AAA, HYPERTENSION. SOCIAL HISTORY GENERAL: TOBACCO USE ARE YOU A:CURRENT SMOKER PT. IS CURRENTLY WORKING ON QUITTING WITH PCP ARE YOU INTERESTED IN QUITTING?READY TO QUIT PREVIOUS QUIT ATTEMPTS?YES, MORE THAN 6 MONTHS AGO. COUNSELED THE PATIENT ON TOBACCO USE, CESSATION [id number]/10/2019 HOW MANY CIGARETTES A DAY DO YOU SMOKE?21-30 HOW SOON AFTER YOU WAKE UP DO YOU SMOKE YOUR FIRST CIGARETTE?WITHIN 5 MIN HOW OFTEN DO YOU SMOKE CIGARETTES?EVERY DAY PATIENT COUNSELED ON THE DANGERS OF TOBACCO USE AND URGED TO QUIT:12/30/2018 OTHERS AT HOME: CHILD. EDUCATION LEVEL OF EDUCATION:FINISHED COLLEGE DIET: REGULAR. LANGUAGE LANGUAGES SPOKEN:MALIAN DOMESTIC VIOLENCE DO YOU FEEL SAFE IN YOUR ENVIRONMENT?YES RECREATIONAL DRUG USE DRUG USE?NO EXERCISE: NONE. LEARNING BARRIERS / SPECIAL NEEDS CHANGE FROM LAST VISIT?NO BARRIERS TO LEARNING?NO PAIN CLINIC PFS, CLERGY, PUBLIC HEALTH REFERRALS PFS REFERRAL NEEDED?NO CLERGY REFERRAL NEEDED?NO PUBLIC HEALTH REFERRAL NEEDED?NO HAS THE PATIENT BEEN EDUCATED REGARDING HIS/HER PLAN OF CARE?YES HAS THE PATIENT BEEN EDUCATED REGARDING PAIN, THE RISK FOR PAIN, THE IMPORTANCE OF EFFECTIVE PAIN MANAGEMENT, AND THE PAIN ASSESSMENT PROCESS?YES LATEX QUESTIONNAIRE LATEX ALLERGY : HAVE YOU EVER DEVELOPED ANY TYPE OF REACTION AFTER HANDLING LATEX PRODUCTS SUCH RUBBER GLOVES, CONDOMS, DIAPHRAGMS, BALLOONS, SOCKS, OR UNDERWEAR?NO LATEX ALLERGY : HAVE YOU EVER DEVELOPED ANY TYPE OF REACTION DURING OR AFTER DENTAL APPOINTMENT, VAGINAL/RECTAL EXAMINATION, SURGICAL PROCEDURE, OR ANY OTHER EXPOSURE?NO LATEX RISK : HAVE YOU EVER HAD ANY DIFFICULTY BREATHING OR HIVES AFTER EATING OR HANDLING ANY FRUITS, OR VEGETABLES; SUCH KIWI, BANANAS, STONE FRUITS, OR CHESTNUTSNO LATEX RISK : DO YOU HAVE A PREVIOUS PERSONAL HISTORY OF MORE THAN NINE SURGERIES, SPINA BIFIDA, OR REPEATED CATHERIZATIONS? NO LATEX RISK : ARE YOU FREQUENTLY EXPOSED TO LATEX PRODUCTS IN YOUR OCCUPATION?NO DATE ASKED : 12/30/2018 CAFFEINE CAFFEINE USE?YES HOW OFTEN AND HOW MUCH? 6 CUPS OF COFFEE PER DAY ADVANCE DIRECTIVE ADVANCE DIRECTIVE DISCUSSED WITH PATIENT:YES 12/30/18 PT DOES NOT HAVE ANY ADVANCED DIRECTIVES AND SHE DECLINES HCP INFORMATION AT THIS TIME. AD LATTER-DAY [id number] CONGREGATIONAL MARITAL STATUS: .. 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 REVIEWED WITH PATIENT 12/16/18 0517 JS. HOSPITALIZATION/MAJOR DIAGNOSTIC PROCEDURE PARASITIC INFECTION 09/2010 REVIEW OF SYSTEMS REVIEWED BY: PROVIDER: GELA RAMOS MUSIC THEORY PROFESSOR-C . CONSTITUTIONAL: ANY CHANGE IN YOUR MEDICAL CONDITION? NO . CHILLS NO . FEVER NO . INFECTION: DO YOU HAVE NEW INFECTIONS? NO . DO YOU HAVE HISTORY OF MRSA? NO . MUSCULOSKELETAL: ANY NEW PATTERNS OF PAIN OR NUMBNESS? YES, PAIN HAS DECREASED SINCE THE FACET BLOCK . GASTROENTEROLOGY: ANY NEW CHANGE IN BOWEL CONTROL? NO . GENITOURINARY: ANY NEW CHANGE IN BLADDER CONTROL? NO . IS THERE A CHANCE YOU COULD BE ? NO . HEMATOLOGY/LYMPH: DO YOU TAKE ANY BLOOD THINNERS? (FOR EXAMPLE- COUMADIN, PLAVIX, AGGRENOX, PLATEL, PRADAXA, OR XARELTO) NO . WHEN WAS YOUR LAST DOSE? DATE: TIME: . NEUROLOGY: HAVE YOU FALLEN IN THE PAST 12 MONTHS? YES, ONCE ON ICE, ONCE TRIPPED-HAD INCREASE IN BACK PAIN AFTER. NOT EVALUATED AFTER . ANY NEW EXTREMITY NUMBNESS OR WEAKNESS? NO . CARDIOLOGY: DO YOU HAVE A PACEMAKER OR DEFIBRILLATOR? NO . RESPIRATORY: HAVE YOU BEEN SICK IN THE PAST WEEK? NO . FEVER NO . FLU LIKE SYMPTOMS? NO . COUGH NO . INTEGUMENTARY: DO YOU HAVE ANY RASHES OR OPEN SORES? NO . ALLERGIC/IMMUNO: ARE YOU ALLERGIC TO IV DYE? NO . ANY NEW ALLERGIES? NO . PSYCHIATRIC: DO YOU HAVE THOUGHTS OF HURTING YOURSELF OR SOMEONE ELSE? NO . ARE YOU ABUSED, NEGLECTED, OR IN AN UNSAFE ENVIRONMENT? NO . ENDOCRINOLOGY: ARE YOU DIABETIC? NO . OTHER: DO YOU NEED ANY PRESCRIPTIONS? NO . IF YES, PLEASE LIST: ____ . ANY NEW PROBLEMS WITH YOUR MEDICATIONS? NO . WHEN DID YOU LAST EAT? ____ . WHEN DID YOU LAST DRINK? ____ . WHAT DID YOU LAST DRINK? ____ . NAME OF PERSON DRIVING YOU HOME? ____ . DO YOU HAVE ANY OTHER QUESTIONS OR CONCERNS NO . VITAL SIGNS WT 144.8 LBS, HT 64 IN, BMI 24.85 INDEX, BP 150/78 MM HG, HR 65 /MIN, RR 18 /MIN, TEMP 97.8 F, OXYGEN SAT % 94%, SAFE IN ENV? (Y/N) Y, NA INITIALS AW 1357, REVIEWED BY: JONE. EXAMINATION GENERAL EXAMINATION: GENERALNO ACUTE DISTRESS, WELL NOURISHED AND HYDRATED. PSYCHAPPROPRIATE MOOD AND AFFECT . LUNGS:CLEAR TO AUSCULTATION BILATERALLY, NO WHEEZES, RHONCHI, RALES. HEART:NO MURMURS, REGULAR RATE AND RHYTHM. ASSESSMENTS SPONDYLOSIS OF LUMBAR REGION WITHOUT MYELOPATHY OR RADICULOPATHY - M47.816 (PRIMARY) TREATMENT SPONDYLOSIS OF LUMBAR REGION WITHOUT MYELOPATHY OR RADICULOPATHY CLINICAL NOTES: 68-YEAR-OLD FEMALE IN FOR POST FACET BLOCK FOLLOW-UP. GIVEN PRESENTING SYMPTOMS AND RESULTS OF PHYSICAL EXAMINATION RECOMMENDED FOLLOW-UP IN 2 MONTHS. PATIENT WAS ENCOURAGED TO CALL THE OFFICE SHOULD HER PAIN RETURN PRIOR TO THAT. PATIENT HAS EXPRESSED UNDERSTANDING OF AND WAS IN AGREEMENT WITH TREATMENT PLAN. GIVEN TIME TO ASK QUESTIONS AND EXPRESS CONCERNS. PROCEDURE CODES FA211 ESTABILISHED PATIENT [facility] FACILITY CHARGE DISPOSITION & COMMUNICATION FOLLOW UP 2 MONTHS (REASON: CHRONIC PAIN ) ELECTRONICALLY SIGNED BY SANTOSH MANDEL ON 12/31/2018 AT 11:26 AM EDT DISCLAIMER : THIS IS A VISIT SUMMARY EXTRACTED FROM THE [employer] CHART. IT IS NOT A COPY OF THE [employer] PROGRESS NOTE. LELIA
== END ==
LOC: M PAIN 14:15
PROVIDERS: ATTEND Family Medicine
DX: M47.816 Spondylosis without myelopathy or radiculopathy, lumbar region (principal); E78.5 Hyperlipidemia, unspecified; Z86.59 Personal history of other mental and behavioral disorders; G43.909 Migraine, unspecified, not intractable, without status migrainosus; M85.88 Other specified disorders of bone density and structure, other site; F17.210 Nicotine dependence, cigarettes, uncomplicated; Z88.5 Allergy status to narcotic agent; Z79.899 Other long term (current) drug therapy

== ENCOUNTER → 2019-01-26 | Outpatient (CLI) | payer MEDICARE, OTHER | LOC: M LRY 16:23 | PROVIDERS: ATTEND Physician Assistant | DX: R05 Cough (principal); R50.9 Fever, unspecified ==

== ENCOUNTER → 2019-01-26 | Outpatient (CLI) | payer MEDICARE, OTHER ==
--- NOTE | 2019-01-26 18:39 | REP ---
Chest x-ray: Two views. History: Cough. Comparison chest x-ray: December 31, 2013. Findings: The lungs are somewhat hyperinflated. There is a granulomatous calcification projecting in the left lower lobe unchanged. Pleural angles are sharp. Cardiomediastinal silhouette is unchanged. The aorta somewhat tortuous. Pulmonary vasculature is not increased. There are degenerative changes in the thoracic spine. impression: Hyperinflation. No acute disease. Electronically Signed by Gabriel Nava MD 01/26/2019 07:36 P
== END ==
LOC: M ADAMS 16:31
PROVIDERS: ATTEND Physician Assistant
DX: R05 Cough (principal); R50.9 Fever, unspecified

== ENCOUNTER → 2019-03-05 | Outpatient (CLI) | payer MEDICARE, OTHER ==
--- NOTE | 2019-04-25 02:15 | ECWPNPC ---
PATIENT NAME: REYNA CABRERA : 1950 GENDER: FEMALE VISIT DATE: 03/05/2019 DISCHARGE DATE: 03/05/19 1406 VISIT LOCKED DATE TIME: PHYSICIAN: RUBINA RAMOS RESOURCE: RUBINA RAMOS REASON FOR APPOINTMENT 1. BACK HISTORY OF PRESENT ILLNESS HISTORY OF PRESENT ILLNESS: PAIN THE PATIENT DESCRIBES THE PAIN... 69-YEAR-OLD FEMALE IN FOR CHRONIC PAIN FOLLOW-UP. SHE RATES HER PAIN CURRENTLY AT A 1 OUT OF 10 AND DESCRIBES IT ACHING. FALL RISK SCREENING: SCREENING :NO FALLS REPORTED IN THE LAST YEAR CURRENT MEDICATIONS TAKING BENZONATATE 100 MG CAPSULE 1 CAPSULE ORALLY EVERY 4 HOURS NEEDED TAKING ALBUTEROL SULFATE HFA 108 (90 BASE) MCG/ACT AEROSOL SOLUTION 2 PUFFS NEEDED INHALATION EVERY 4 HRS TAKING ADVAIR DISKUS 250-50 MCG/DOSE AEROSOL POWDER BREATH ACTIVATED 1 PUFF INHALATION TWICE A DAY TAKING OMEPRAZOLE 40 MG CAPSULE DELAYED RELEASE 1 CAPSULE ORALLY DAILY TAKING PAROXETINE HCL 20 MG TABLET 1 TABLET IN THE MORNING ORALLY ONCE A DAY TAKING EXCEDRIN EXTRA STRENGTH 250-250-65 MG TABLET 2 TABLETS NEEDED FOR PAIN ORALLY NEEDED TAKING PRESERVISION AREDS - TABLET DIRECTED ORALLY TAKING MAY USE HYDRO EYES 1 TABLET FOR DRY EYES DAILY NOT-TAKING RETAINE CMC 0.5 % SOLUTION 1 DROP INTO AFFECTED EYE NEEDED OPHTHALMIC 24 TIME(S) A DAY, NOTES: CURRENTLY OUT OF, WILL BE RESTARTING IN THE FUTURE NOT-TAKING MAY USE 25 MG CBD OIL 3/4 A DROPPER FUL SUBLINGUALLY DAILY, NOTES: CURRENTLY OUT OF, WILL BE RESTARTING IN THE FUTURE NOT-TAKING DICLOFENAC SODIUM 50 MG TABLET DELAYED RELEASE 1 TABLET WITH FOOD OR MILK ORALLY THREE TIMES A DAY NOT-TAKING ASPIRIN ADULT LOW DOSE 81 MG TABLET DELAYED RELEASE 1 TABLET ORALLY ONCE A DAY MEDICATION LIST REVIEWED AND RECONCILED WITH THE PATIENT PAST MEDICAL HISTORY DYSLIPIDEMIA- MIXED HYPERLIPIDEMIA S/P CARDIAC CATH D/T ABN EKG RECURRENT SINUSITIS - IMPROVED S/P SURGERY ALLERGIC RHINITIS RIGHT ETHMOID TUMOR THAT WAS RESECTED IN THE EARLY RT SINUS TUMOR 1985 DEPRESSION/PANIC ATTACKS/ HIATAL HERNIA/GERD - REINDL CHRONIC PATE- MIGRAINE/CLUSTER 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 DR CHRISTAL JASMINE, DR CARA 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-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 - PT IS BEING FOLLOWED FOR RECONSTRUCTIVE SURGERY IN OCTOBER 2012 BACK PAIN - PAIN CLINIC KNEE PAIN -TORN MENISCUS - ORTHO OSTEOPENIA - HIPS DEXA 08/07 FX OF THE TIBIAL PLATEAU RIGHT KNEE ALLERGIES VICODIN: NAUSEA/VOMITING - SIDE EFFECTS SURGICAL HISTORY KNEE ARTHROSCOPY-RIGHT C SECTION RIGHT SINUS TUMOR REMOVAL 1985 LEFT CARPAL TUNNEL RELEASE 2001 TOTAL HYSTERECTOMY D/T FOR BLEEDING, BILATERAL OVARIES INTACT COLONOSCOPY -NL 2007 [facility] 10/2012 EGD REINDL - NORMAL 07/03 CARPAL TUNNEL RELEASE R 8-04-04 WISDOM TOOTH 11-16 FAMILY HISTORY FATHER: , MASSIVE HEART ATTACK AT 65 MOTHER: ALIVE 94 YRS, HTN, BLADDER CANCER NONINVASIVE, BOTH EYES MACULAR DEGENERATION, THYROID DISEASE SIBLINGS: ALIVE, BROTHER HAS HTN AND HX. OF ANEURYSM SON(S): ALIVE DAUGHTER(S): ALIVE PATERNAL GRAND FATHER: , ? CANCER PATERNAL GRAND MOTHER: , HI MATERNAL GRAND FATHER: , HTN MATERNAL GRAND MOTHER: 1 BROTHER(S) . 1 SON(S) , 1 DAUGHTER(S) - HEALTHY. BROTHER AAA, HYPERTENSION. SOCIAL HISTORY GENERAL: TOBACCO USE ARE YOU A:CURRENT SMOKER PT. IS CURRENTLY WORKING ON QUITTING WITH PCP ARE YOU INTERESTED IN QUITTING?READY TO QUIT PREVIOUS QUIT ATTEMPTS?YES, MORE THAN 6 MONTHS AGO. COUNSELED THE PATIENT ON TOBACCO USE, CESSATION [id number]/10/2019 HOW MANY CIGARETTES A DAY DO YOU SMOKE?21-30 HOW SOON AFTER YOU WAKE UP DO YOU SMOKE YOUR FIRST CIGARETTE?WITHIN 5 MIN HOW OFTEN DO YOU SMOKE CIGARETTES?EVERY DAY PATIENT COUNSELED ON THE DANGERS OF TOBACCO USE AND URGED TO QUIT:03/05/2019 OTHERS AT HOME: CHILD. EDUCATION LEVEL OF EDUCATION:FINISHED COLLEGE DIET: REGULAR. LANGUAGE LANGUAGES SPOKEN:ISRAELI DOMESTIC VIOLENCE DO YOU FEEL SAFE IN YOUR ENVIRONMENT?YES RECREATIONAL DRUG USE DRUG USE?NO EXERCISE: NONE. LEARNING BARRIERS / SPECIAL NEEDS CHANGE FROM LAST VISIT?NO BARRIERS TO LEARNING?NO PAIN CLINIC PFS, CLERGY, PUBLIC HEALTH REFERRALS PFS REFERRAL NEEDED?NO CLERGY REFERRAL NEEDED?NO PUBLIC HEALTH REFERRAL NEEDED?NO HAS THE PATIENT BEEN EDUCATED REGARDING HIS/HER PLAN OF CARE?YES HAS THE PATIENT BEEN EDUCATED REGARDING PAIN, THE RISK FOR PAIN, THE IMPORTANCE OF EFFECTIVE PAIN MANAGEMENT, AND THE PAIN ASSESSMENT PROCESS?YES LATEX QUESTIONNAIRE LATEX ALLERGY : HAVE YOU EVER DEVELOPED ANY TYPE OF REACTION AFTER HANDLING LATEX PRODUCTS SUCH RUBBER GLOVES, CONDOMS, DIAPHRAGMS, BALLOONS, SOCKS, OR UNDERWEAR?NO LATEX ALLERGY : HAVE YOU EVER DEVELOPED ANY TYPE OF REACTION DURING OR AFTER DENTAL APPOINTMENT, VAGINAL/RECTAL EXAMINATION, SURGICAL PROCEDURE, OR ANY OTHER EXPOSURE?NO DATE ASKED : 12/30/2018 LATEX RISK : HAVE YOU EVER HAD ANY DIFFICULTY BREATHING OR HIVES AFTER EATING OR HANDLING ANY FRUITS, OR VEGETABLES; SUCH KIWI, BANANAS, STONE FRUITS, OR CHESTNUTSNO LATEX RISK : DO YOU HAVE A PREVIOUS PERSONAL HISTORY OF MORE THAN NINE SURGERIES, SPINA BIFIDA, OR REPEATED CATHERIZATIONS? NO LATEX RISK : ARE YOU FREQUENTLY EXPOSED TO LATEX PRODUCTS IN YOUR OCCUPATION?NO CAFFEINE CAFFEINE USE?YES HOW OFTEN AND HOW MUCH? 6 CUPS OF COFFEE PER DAY ADVANCE DIRECTIVE ADVANCE DIRECTIVE DISCUSSED WITH PATIENT:YES 03/05/19 PT DOES NOT HAVE ANY ADVANCED DIRECTIVES, INFORMATION GIVEN, DECLINES ASSISTANCE WITH FORM. BV ZOROASTRIANISM [id number] YAZDANISM MARITAL STATUS: .. ALCOHOL SCREENING DID YOU HAVE A DRINK CONTAINING ALCOHOL IN THE PAST YEAR?NO POINTS0 INTERPRETATIONNEGATIVE OCCUPATION: [employer]. REVIEWED WITH PATIENT 12/16/18 0920 JSREVIEWED WITH PATIENT 03/05/19 1340 BV. HOSPITALIZATION/MAJOR DIAGNOSTIC PROCEDURE PARASITIC INFECTION 09/2010 REVIEW OF SYSTEMS REVIEWED BY: PROVIDER: GELA RAMOS LEAD TRAINER-C . CONSTITUTIONAL: ANY CHANGE IN YOUR MEDICAL CONDITION? NO . CHILLS NO . FEVER NO . INFECTION: DO YOU HAVE NEW INFECTIONS? NO . DO YOU HAVE HISTORY OF MRSA? NO . MUSCULOSKELETAL: ANY NEW PATTERNS OF PAIN OR NUMBNESS? NO . GASTROENTEROLOGY: ANY NEW CHANGE IN BOWEL CONTROL? NO . GENITOURINARY: ANY NEW CHANGE IN BLADDER CONTROL? NO . IS THERE A CHANCE YOU COULD BE ? NO . HEMATOLOGY/LYMPH: DO YOU TAKE ANY BLOOD THINNERS? (FOR EXAMPLE- COUMADIN, PLAVIX, AGGRENOX, PLATEL, PRADAXA, OR XARELTO) NO . WHEN WAS YOUR LAST DOSE? DATE: TIME: . NEUROLOGY: HAVE YOU FALLEN IN THE PAST 12 MONTHS? YES, PT DENIES ANY FALLS SINCE LAST VISIT. STATES PREVIOUS FALLS HAVE BEEN DOCUMENTED AT PREVIOUS APPOINTMENTS. . ANY NEW EXTREMITY NUMBNESS OR WEAKNESS? NO . CARDIOLOGY: DO YOU HAVE A PACEMAKER OR DEFIBRILLATOR? NO . RESPIRATORY: HAVE YOU BEEN SICK IN THE PAST WEEK? NO . FEVER NO . FLU LIKE SYMPTOMS? NO . COUGH NO . INTEGUMENTARY: DO YOU HAVE ANY RASHES OR OPEN SORES? NO . ALLERGIC/IMMUNO: ARE YOU ALLERGIC TO IV DYE? NO . ANY NEW ALLERGIES? NO . PSYCHIATRIC: DO YOU HAVE THOUGHTS OF HURTING YOURSELF OR SOMEONE ELSE? NO . ARE YOU ABUSED, NEGLECTED, OR IN AN UNSAFE ENVIRONMENT? NO . ENDOCRINOLOGY: ARE YOU DIABETIC? NO . OTHER: DO YOU NEED ANY PRESCRIPTIONS? NO . IF YES, PLEASE LIST: ____ . ANY NEW PROBLEMS WITH YOUR MEDICATIONS? NO . WHEN DID YOU LAST EAT? ____ . WHEN DID YOU LAST DRINK? ____ . WHAT DID YOU LAST DRINK? ____ . NAME OF PERSON DRIVING YOU HOME? ____ . DO YOU HAVE ANY OTHER QUESTIONS OR CONCERNS NO . VITAL SIGNS WT 151.2 LBS, HT 64 IN, BMI 25.95 INDEX, BP 145/75 MM HG, HR 67 /MIN, RR 18 /MIN, TEMP 97.6 F, OXYGEN SAT % 98%, NA INITIALS AW 1334, REVIEWED BY: BV. EXAMINATION GENERAL EXAMINATION: GENERALNO ACUTE DISTRESS, WELL NOURISHED AND HYDRATED. PSYCHAPPROPRIATE MOOD AND AFFECT . LUNGS:CLEAR TO AUSCULTATION BILATERALLY, NO WHEEZES, RHONCHI, RALES. HEART:NO MURMURS, REGULAR RATE AND RHYTHM. ASSESSMENTS SPONDYLOSIS OF LUMBAR REGION WITHOUT MYELOPATHY OR RADICULOPATHY - M47.816 (PRIMARY) TREATMENT SPONDYLOSIS OF LUMBAR REGION WITHOUT MYELOPATHY OR RADICULOPATHY CLINICAL NOTES: 69-YEAR-OLD FEMALE IN FOR CHRONIC PAIN FOLLOW-UP. GIVEN PRESENTING SYMPTOMS AND RESULTS PHYSICAL EXAMINATION RECOMMENDED FOLLOW-UP IN 2 MONTHS. PATIENT HAS EXPRESSED UNDERSTANDING OF AND WAS IN AGREEMENT WITH TREATMENT PLAN. GIVEN TIME TO ASK QUESTIONS AND EXPRESS CONCERNS. DISPOSITION & COMMUNICATION FOLLOW UP 2 MONTHS (REASON: CHRONIC PAIN ) ELECTRONICALLY SIGNED BY SANTOSH MANDEL ON 04/24/2019 AT 03:50 PM EST DISCLAIMER : THIS IS A VISIT SUMMARY EXTRACTED FROM THE [employer] CHART. IT IS NOT A COPY OF THE [employer] PROGRESS NOTE. LELIA
== END ==
LOC: M PAIN 13:30
PROVIDERS: ATTEND Family Medicine
DX: M47.816 Spondylosis without myelopathy or radiculopathy, lumbar region (principal); F17.210 Nicotine dependence, cigarettes, uncomplicated; Z79.899 Other long term (current) drug therapy; Z88.5 Allergy status to narcotic agent

== ENCOUNTER → 2019-09-10 | Outpatient (CLI) | payer MEDICARE, OTHER ==
--- NOTE | 2019-09-12 01:54 | ECWPNPC ---
PATIENT NAME: REYNA CABRERA : 1950 GENDER: FEMALE VISIT DATE: 09/10/2019 DISCHARGE DATE: 09/10/19 1428 VISIT LOCKED DATE TIME: PHYSICIAN: RUBINA RAMOS RESOURCE: RUBINA RAMOS REASON FOR APPOINTMENT 1. BACK 2 MONTHS PRE PROCEDURE HISTORY OF PRESENT ILLNESS HISTORY OF PRESENT ILLNESS: PAIN THE PATIENT DESCRIBES THE PAIN... 59-YEAR-OLD FEMALE IN FOR CHRONIC PAIN FOLLOW-UP. SHE RATES HER PAIN CURRENTLY AT A 5 OUT OF 10 AND DESCRIBES IT ACHING. PATIENT ADMITS TO A FALL BACK IN JUNE AND SINCE THAT TIME SHE HAS EXPERIENCED PAIN IN THE RIGHT BUTTOCK AREA. FALL RISK SCREENING: SCREENING :NO FALLS REPORTED IN THE LAST YEAR CURRENT MEDICATIONS TAKING CYCLOBENZAPRINE HCL 5 MG TABLET 1 TABLET AT BEDTIME NEEDED ORALLY ONCE A DAY TAKING BENZONATATE 100 MG CAPSULE 1 CAPSULE ORALLY EVERY 4 HOURS NEEDED TAKING ALBUTEROL SULFATE HFA 108 (90 BASE) MCG/ACT AEROSOL SOLUTION 2 PUFFS NEEDED INHALATION EVERY 4 HRS TAKING ADVAIR DISKUS 250-50 MCG/DOSE AEROSOL POWDER BREATH ACTIVATED 1 PUFF INHALATION TWICE A DAY TAKING OMEPRAZOLE 40 MG CAPSULE DELAYED RELEASE 1 CAPSULE ORALLY DAILY TAKING PAROXETINE HCL 20 MG TABLET 1 TABLET IN THE MORNING ORALLY ONCE A DAY TAKING EXCEDRIN EXTRA STRENGTH 250-250-65 MG TABLET 2 TABLETS NEEDED FOR PAIN ORALLY NEEDED TAKING PRESERVISION AREDS - TABLET DIRECTED ORALLY TAKING MAY USE HYDRO EYES 1 TABLET FOR DRY EYES DAILY TAKING RETAINE CMC 0.5 % SOLUTION 1 DROP INTO AFFECTED EYE NEEDED OPHTHALMIC 24 TIME(S) A DAY, NOTES: CURRENTLY OUT OF, WILL BE RESTARTING IN THE FUTURE TAKING MAY USE 25 MG CBD OIL 3/4 A DROPPER FUL SUBLINGUALLY DAILY, NOTES: CURRENTLY OUT OF, WILL BE RESTARTING IN THE FUTURE TAKING ASPIRIN ADULT LOW DOSE 81 MG TABLET DELAYED RELEASE 1 TABLET ORALLY ONCE A DAY NOT-TAKING DICLOFENAC SODIUM 50 MG TABLET DELAYED RELEASE 1 TABLET WITH FOOD OR MILK ORALLY THREE TIMES A DAY MEDICATION LIST REVIEWED AND RECONCILED WITH THE PATIENT PAST MEDICAL HISTORY DYSLIPIDEMIA- MIXED HYPERLIPIDEMIA S/P CARDIAC CATH D/T ABN EKG RECURRENT SINUSITIS - IMPROVED S/P SURGERY ALLERGIC RHINITIS RIGHT ETHMOID TUMOR THAT WAS RESECTED IN THE EARLY RT SINUS TUMOR 1985 DEPRESSION/PANIC ATTACKS/ HIATAL HERNIA/GERD - REINDL CHRONIC PATE- MIGRAINE/CLUSTER 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 DR CHRISTAL JASMINE, DR CARA CHAPMAN-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 - PT IS BEING FOLLOWED FOR RECONSTRUCTIVE SURGERY IN OCTOBER 2012 BACK PAIN - PAIN CLINIC KNEE PAIN -TORN MENISCUS - ORTHO OSTEOPENIA - HIPS DEXA 08/07 FX OF THE TIBIAL PLATEAU RIGHT KNEE LIPAFLOW EYE TREATMENTS ALLERGIES VICODIN: NAUSEA/VOMITING - SIDE EFFECTS SURGICAL HISTORY KNEE ARTHROSCOPY-RIGHT C SECTION RIGHT SINUS TUMOR REMOVAL 1985 LEFT CARPAL TUNNEL RELEASE 2001 TOTAL HYSTERECTOMY D/T FOR BLEEDING, BILATERAL OVARIES INTACT COLONOSCOPY -NL 2007 SEPTOPLASTY ([facility]) 10/2012 EGD REINDL - NORMAL 07/03 CARPAL TUNNEL RELEASE R 8 WISDOM TOOTH 11-16 BBL LASER LIGHT EYE SURGERY 07/2019 FAMILY HISTORY FATHER: , MASSIVE HEART ATTACK AT 65 MOTHER: ALIVE 95 YRS, HTN, BLADDER CANCER NONINVASIVE, BOTH EYES MACULAR DEGENERATION, THYROID DISEASE SIBLINGS: ALIVE, BROTHER HAS HTN AND HX. OF ANEURYSM SON(S): ALIVE DAUGHTER(S): ALIVE PATERNAL GRAND FATHER: , ? CANCER PATERNAL GRAND MOTHER: , ID MATERNAL GRAND FATHER: , HTN MATERNAL GRAND MOTHER: 1 BROTHER(S) . 1 SON(S) , 1 DAUGHTER(S) - HEALTHY. BROTHER AAA, HYPERTENSION. SOCIAL HISTORY GENERAL: TOBACCO USE ARE YOU A:CURRENT SMOKER PT. IS CURRENTLY WORKING ON QUITTING WITH PCP ARE YOU INTERESTED IN QUITTING?READY TO QUIT PREVIOUS QUIT ATTEMPTS?YES, MORE THAN 6 MONTHS AGO. COUNSELED THE PATIENT ON TOBACCO USE, CESSATION [id number]/21/2020 HOW MANY CIGARETTES A DAY DO YOU SMOKE?21-30 HOW SOON AFTER YOU WAKE UP DO YOU SMOKE YOUR FIRST CIGARETTE?WITHIN 5 MIN HOW OFTEN DO YOU SMOKE CIGARETTES?EVERY DAY PATIENT COUNSELED ON THE DANGERS OF TOBACCO USE AND URGED TO QUIT:09/10/2019 LATEX QUESTIONNAIRE LATEX ALLERGY : HAVE YOU EVER DEVELOPED ANY TYPE OF REACTION AFTER HANDLING LATEX PRODUCTS SUCH RUBBER GLOVES, CONDOMS, DIAPHRAGMS, BALLOONS, SOCKS, OR UNDERWEAR?NO LATEX ALLERGY : HAVE YOU EVER DEVELOPED ANY TYPE OF REACTION DURING OR AFTER DENTAL APPOINTMENT, VAGINAL/RECTAL EXAMINATION, SURGICAL PROCEDURE, OR ANY OTHER EXPOSURE?NO LATEX RISK : HAVE YOU EVER HAD ANY DIFFICULTY BREATHING OR HIVES AFTER EATING OR HANDLING ANY FRUITS, OR VEGETABLES; SUCH KIWI, BANANAS, STONE FRUITS, OR CHESTNUTSNO LATEX RISK : DO YOU HAVE A PREVIOUS PERSONAL HISTORY OF MORE THAN NINE SURGERIES, SPINA BIFIDA, OR REPEATED CATHERIZATIONS? NO LATEX RISK : ARE YOU FREQUENTLY EXPOSED TO LATEX PRODUCTS IN YOUR OCCUPATION?NO DATE ASKED : 09/10/2019 ALCOHOL SCREENING DID YOU HAVE A DRINK CONTAINING ALCOHOL IN THE PAST YEAR?NO POINTS0 INTERPRETATIONNEGATIVE RECREATIONAL DRUG USE DRUG USE?NO CAFFEINE CAFFEINE USE?YES HOW OFTEN AND HOW MUCH? 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 EXERCISE: NONE. MARITAL STATUS: .. OTHERS AT HOME: CHILD. NEW PATIENT PAIN DIARY TODAY'S VISIT 09/10/2019 PATIENT DESCRIBES PAIN :ACHING CONSTANT LOWER BACK PX, LEGS TIGHTNING UP FROM 0-10, WHAT LEVEL IS YOUR PAIN TODAY?5 ALLEVIATING FACTORS MEMORY FOAM MATTRESS TOP AND MEMORY FOAM PILLOW PAIN CLINIC PFS, CLERGY, PUBLIC HEALTH REFERRALS PFS REFERRAL NEEDED?NO CLERGY REFERRAL NEEDED?NO PUBLIC HEALTH REFERRAL NEEDED?NO HAS THE PATIENT BEEN EDUCATED REGARDING HIS/HER PLAN OF CARE?YES HAS THE PATIENT BEEN EDUCATED REGARDING PAIN, THE RISK FOR PAIN, THE IMPORTANCE OF EFFECTIVE PAIN MANAGEMENT, AND THE PAIN ASSESSMENT PROCESS?YES ADVANCE DIRECTIVE ADVANCE DIRECTIVE DISCUSSED WITH PATIENT:YES 03/05/19 PT DOES NOT HAVE ANY ADVANCED DIRECTIVES, INFORMATION GIVEN, DECLINES ASSISTANCE WITH FORM. BV HOSPITALIZATION/MAJOR DIAGNOSTIC PROCEDURE PARASITIC INFECTION 09/2010 REVIEW OF SYSTEMS REVIEWED BY: PROVIDER: GELA FROST-Mere . CONSTITUTIONAL: ANY CHANGE IN YOUR MEDICAL CONDITION? NO . CHILLS NO . FEVER NO . INFECTION: DO YOU HAVE NEW INFECTIONS? NO . DO YOU HAVE HISTORY OF MRSA? NO . MUSCULOSKELETAL: ANY NEW PATTERNS OF PAIN OR NUMBNESS? NO . GASTROENTEROLOGY: ANY NEW CHANGE IN BOWEL CONTROL? NO . GENITOURINARY: ANY NEW CHANGE IN BLADDER CONTROL? NO . IS THERE A CHANCE YOU COULD BE ? NO . HEMATOLOGY/LYMPH: DO YOU TAKE ANY BLOOD THINNERS? (FOR EXAMPLE- COUMADIN, PLAVIX, AGGRENOX, PLATEL, PRADAXA, OR XARELTO) NO . WHEN WAS YOUR LAST DOSE? DATE: TIME: . NEUROLOGY: HAVE YOU FALLEN IN THE PAST 12 MONTHS? YES FELL IN JUNE 2019 PAIN HAS GOTTEN WORSE IN HIPS AND LOWER BACK . ANY NEW EXTREMITY NUMBNESS OR WEAKNESS? NO . CARDIOLOGY: DO YOU HAVE A PACEMAKER OR DEFIBRILLATOR? NO . RESPIRATORY: HAVE YOU BEEN SICK IN THE PAST WEEK? NO . FEVER NO . FLU LIKE SYMPTOMS? NO . COUGH NO . INTEGUMENTARY: DO YOU HAVE ANY RASHES OR OPEN SORES? NO . ALLERGIC/IMMUNO: ARE YOU ALLERGIC TO IV DYE? NO . ANY NEW ALLERGIES? NO . PSYCHIATRIC: DO YOU HAVE THOUGHTS OF HURTING YOURSELF OR SOMEONE ELSE? NO . ARE YOU ABUSED, NEGLECTED, OR IN AN UNSAFE ENVIRONMENT? NO . ENDOCRINOLOGY: ARE YOU DIABETIC? NO . OTHER: DO YOU NEED ANY PRESCRIPTIONS? NO . IF YES, PLEASE LIST: ____ . ANY NEW PROBLEMS WITH YOUR MEDICATIONS? NO . WHEN DID YOU LAST EAT? ____ . WHEN DID YOU LAST DRINK? ____ . WHAT DID YOU LAST DRINK? ____ . NAME OF PERSON DRIVING YOU HOME? ____ . DO YOU HAVE ANY OTHER QUESTIONS OR CONCERNS NO . VITAL SIGNS WT 150.6 LBS, HT 64 IN, BMI 25.85 INDEX, BP 159/77 MM HG, HR 83 /MIN, RR 18 /MIN, TEMP 96.0 F, OXYGEN SAT % 94%, NA INITIALS AW 1329. EXAMINATION GENERAL EXAMINATION: GENERALNO ACUTE DISTRESS, WELL NOURISHED AND HYDRATED. PSYCHAPPROPRIATE MOOD AND AFFECT . LUNGS:CLEAR TO AUSCULTATION BILATERALLY, NO WHEEZES, RHONCHI, RALES. HEART:NO MURMURS, REGULAR RATE AND RHYTHM. BACK:POINT TENDER RIGHT SIJ . ASSESSMENTS SACROILIITIS, NOT ELSEWHERE CLASSIFIED - M46.1 (PRIMARY) TREATMENT SACROILIITIS, NOT ELSEWHERE CLASSIFIED NOTES: RIGHT SIJ EDUCATION ON PROCEDURE PROVIDED TO PATIENT. CLINICAL NOTES: 69-YEAR-OLD FEMALE IN FOR CHRONIC PAIN FOLLOW-UP. GIVEN PRESENTING SYMPTOMS AND RESULTS OF PHYSICAL EXAMINATION RECOMMENDED RIGHT SIJ WITH POSTPROCEDURAL FOLLOW-UP. PATIENT HAS EXPRESSED UNDERSTANDING OF AND WAS IN AGREEMENT WITH TREATMENT PLAN. GIVEN TIME TO ASK QUESTIONS AND EXPRESS CONCERNS. PROCEDURE CODES FA211 ESTABILISHED PATIENT [facility] FACILITY CHARGE DISPOSITION & COMMUNICATION FOLLOW UP POST PROCEDURE (REASON: RIGHT SIJ ) ELECTRONICALLY SIGNED BY SANTOSH MANDEL ON 09/11/2019 AT 08:03 AM EDT DISCLAIMER : THIS IS A VISIT SUMMARY EXTRACTED FROM THE [employer] CHART. IT IS NOT A COPY OF THE [employer] PROGRESS NOTE. LELIA
== END ==
LOC: M PAIN 13:45
PROVIDERS: ATTEND Family Medicine
DX: M46.1 Sacroiliitis, not elsewhere classified (principal)

== ENCOUNTER → 2019-09-21 | Outpatient (CLI) | payer MEDICARE, OTHER | LOC: M LABSMTC 12:24 | PROVIDERS: ATTEND Anesthesiology | DX: Z11.59 Encounter for screening for other viral diseases (principal) | CPT/HCPCS: C9803; U0003 ==

== ENCOUNTER → 2019-09-24 | Outpatient (CLI) | payer MEDICARE, OTHER ==
[~2019-09-24] MED LIST changes: +BUPIVACAINE HCL 0.25% 30ML VIAL As Ordered ONE; +ISOVUE-M 300 61% 15ML VIAL As Ordered ONE; +LIDOCAINE 1% SDV 30ML VIAL As Ordered ONE; +dexameTHASONE 10MG/1ML VIAL PRES.FREE (J1100 PER 1MG) As Ordered ONE; +diazePAM 5 MG TAB As Ordered ONE; +oxyCODONE 5MG TAB As Ordered ONE
--- NOTE | 2019-09-25 | REP ---
C-ARM VIEWS RIGHT SACROILIAC JOINT: CLINICAL HISTORY: Pain. Three C-arm views right sacroiliac joint performed during injection by Dr. Mariano. A needle overlies the right sacroiliac joint. 28 seconds fluoroscopy time utilized. Electronically Signed by Bhargav Lobato MD 09/28/2019 09:29 P
--- NOTE | 2019-09-25 01:15 | ECWPNPC ---
PATIENT NAME: REYNA CABRERA : 1950 GENDER: FEMALE VISIT DATE: 09/24/2019 DISCHARGE DATE: 09/24/19 1328 VISIT LOCKED DATE TIME: PHYSICIAN: BEAR GOLDSTEIN MD RESOURCE: BEAR GOLDSTEIN MD REASON FOR APPOINTMENT 1. RIGHT SIJ HISTORY OF PRESENT ILLNESS GENERAL: -. FALL RISK SCREENING: SCREENING :ONE FALL WITH INJURY IN THE PAST YEAR June BOTH LEGS WENT OUT FROM UNDER HER INJURYING HER BACK, NOT EVALUATED AFTER. PAIN STARTED BOTHERING HER WEEKS LATER PAIN SCREENING: PATIENT HAS A COMPLAINT OF ACUTE OR CHRONIC PAIN :YES LOCATION OF PAIN:LOW BACK, LEG(S), OTHER: RIGHT SIDE GREATER THAN LEFT. ON THE RIGHT THE PAIN WRAPS AROUND TO PELVIC AREA. RADIATES DOWN BOTH FRONT AND BACK OF LEGS TO JUST ABOUT THE KNEE AREA. INTENSITY OF PAIN (SCALE OF 1 TO 10):4 AVERAGE -3-6 WHAT DOES YOUR PAIN FEEL LIKE:ACHING, CONTINOUS DEEP CONTINUOUS ACHE DURATION:CONTINOUS, CONSTANT, ALL DAY HAS A HARD TIME GETTING COMFOTABLE TO SLEEP PAIN IS INCREASED BY: SITTING OR STANDING FOR ANY LENGTH OF TIME. AFTER SITTING SHE NOTICES IT MORE WHILE GETTING UP. WORSE WHEN SHE IS TIRED PAIN IS DECREASED BY: NOTHING, IT JUST CHANGES IN INTENSITY NURSING NOTE: -. PAIN CENTER INTAKE QUESTIONS: DO YOU HAVE A HISTORY OF MRSA? :NO DO YOU TAKE A BLOOD THINNERS? :NO DO YOU HAVE ANY BLEEDING DISORDERS? :NO ANY NEW NUMBNESS OR WEAKNESS IN YOUR LEGS OR ARMS? :NO ANY PACEMAKER,DEFIBRILLATOR, OR DORSAL COLUMN STIMULATOR? :NO DO YOU HAVE ANY RASHES OR OPEN SORES? :NO ARE YOU ALLERGIC TO IV DYE? :NO ARE YOU DIABETIC? :NO ANY NEW PROBLEMS WITH YOUR MEDICATIONS? :NO HAVE YOU RECEIVED A VACCINE IN THE PAST 30 DAYS? :NO DO YOU PLAN TO RECEIVE A VACCINE IN THE NEXT 21 DAYS? :NO DO YOU NEED ANY PRESCRIPTION? :NO DO YOU TAKE ANY IMMUNOSUPPRESSIVE MEDICATIONS? :NO ANY HISTORY OF SEIZURES? :NO ANY HISTORY OF CARDIAC ISSUES OR EVENTS? :NO DO YOU HAVE SLEEP APNEA? :NO ANY RECENT HEAD INJURY? :NO DO YOU HAVE ANY NEW INFECTIONS? :NO WHEN DID YOU LAST EAT? : 09/24/2019 0515 WHEN DID YOU LAST DRINK? : 09/24/2019 0900 WHAT DID YOU LAST DRINK? : GINGERALE NAME OF PERSON DRIVING YOU HOME? : DAUGHTER-ESTRELLA DO YOU HAVE ANY OTHER QUESTIONS OR CONCERNS? : - CURRENT MEDICATIONS TAKING CYCLOBENZAPRINE HCL 5 MG TABLET 1 TABLET AT BEDTIME NEEDED ORALLY ONCE A DAY, NOTES: NONE IN A FEW DAYS TAKING BENZONATATE 100 MG CAPSULE 1 CAPSULE ORALLY EVERY 4 HOURS NEEDED, NOTES: 09/24/2019699 TAKING ALBUTEROL SULFATE HFA 108 (90 BASE) MCG/ACT AEROSOL SOLUTION 2 PUFFS NEEDED INHALATION EVERY 4 HRS, NOTES: 09/24/2019699 TAKING ADVAIR DISKUS 250-50 MCG/DOSE AEROSOL POWDER BREATH ACTIVATED 1 PUFF INHALATION TWICE A DAY, NOTES: 09/23/2019899 TAKING OMEPRAZOLE 40 MG CAPSULE DELAYED RELEASE 1 CAPSULE ORALLY DAILY, NOTES: 09/24/2019699 TAKING PAROXETINE HCL 20 MG TABLET 1 TABLET IN THE MORNING ORALLY ONCE A DAY, NOTES: 09/24/2019699 TAKING EXCEDRIN EXTRA STRENGTH 250-250-65 MG TABLET 2 TABLETS NEEDED FOR PAIN ORALLY NEEDED, NOTES: PRN TAKING PRESERVISION AREDS - TABLET DIRECTED ORALLY DAILY, NOTES: 09/23/2019899 TAKING MAY USE HYDRO EYES 1 TABLET FOR DRY EYES DAILY, NOTES: 09/23/2019899 TAKING ASPIRIN ADULT LOW DOSE 81 MG TABLET DELAYED RELEASE 1 TABLET ORALLY ONCE A DAY, NOTES: 09/23/2019899 TAKING CENTRUM SILVER ULTRA WOMENS - TABLET 1 TAB ORALLY DAILY, NOTES: 09/23/2019899 TAKING SYSTANE 0.4-0.3 % SOLUTION 1 DROP BOTH EYES OPHTHALMIC NEEDED, NOTES: PRN NOT-TAKING RETAINE CMC 0.5 % SOLUTION 1 DROP INTO AFFECTED EYE NEEDED OPHTHALMIC 24 TIME(S) A DAY, NOTES: CURRENTLY OUT OF, WILL BE RESTARTING IN THE FUTURE NOT-TAKING MAY USE 25 MG CBD OIL 3/4 A DROPPER FUL SUBLINGUALLY DAILY, NOTES: CURRENTLY OUT OF, WILL BE RESTARTING IN THE FUTURE NOT-TAKING DICLOFENAC SODIUM 50 MG TABLET DELAYED RELEASE 1 TABLET WITH FOOD OR MILK ORALLY THREE TIMES A DAY MEDICATION LIST REVIEWED AND RECONCILED WITH THE PATIENT PAST MEDICAL HISTORY DYSLIPIDEMIA- MIXED HYPERLIPIDEMIA S/P CARDIAC CATH D/T ABN EKG RECURRENT SINUSITIS - IMPROVED S/P SURGERY ALLERGIC RHINITIS RIGHT ETHMOID TUMOR THAT WAS RESECTED IN THE EARLY RT SINUS TUMOR 1985 DEPRESSION/PANIC ATTACKS/ HIATAL HERNIA/GERD - REINDL CHRONIC PATE- MIGRAINE/CLUSTER 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 DR CHRISTAL JASMINE, DR CARA CHAPMAN-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 - PT IS BEING FOLLOWED FOR RECONSTRUCTIVE SURGERY IN OCTOBER 2012 BACK PAIN - PAIN CLINIC KNEE PAIN -TORN MENISCUS - ORTHO OSTEOPENIA - HIPS DEXA 08/07 FX OF THE TIBIAL PLATEAU RIGHT KNEE LIPAFLOW EYE TREATMENTS ALLERGIES VICODIN: NAUSEA/VOMITING - SIDE EFFECTS SURGICAL HISTORY KNEE ARTHROSCOPY-RIGHT C SECTION RIGHT SINUS TUMOR REMOVAL 1985 LEFT CARPAL TUNNEL RELEASE 2001 TOTAL HYSTERECTOMY D/T FOR BLEEDING, BILATERAL OVARIES INTACT COLONOSCOPY -NL 2007 SE[facility]OPLASTY ([facility] 10/2012 EGD REINDL - NORMAL 07/03 CARPAL TUNNEL RELEASE R 8-04-04 WISDOM TOOTH 11-16 LIPAFLOW TREATMENT BILATERAL EYES FOLLOWED BY BBL LASER LIGHT EYE SURGERY X 2 ONE MONTH APART 07/2019 FAMILY HISTORY FATHER: , MASSIVE HEART ATTACK AT 63 MOTHER: ALIVE 95 YRS, HTN, BLADDER CANCER NONINVASIVE, BOTH EYES MACULAR DEGENERATION, THYROID DISEASE SIBLINGS: ALIVE, BROTHER HAS HTN AND HX. OF ANEURYSM SON(S): ALIVE DAUGHTER(S): ALIVE PATERNAL GRAND FATHER: , ? CANCER PATERNAL GRAND MOTHER: , NE MATERNAL GRAND FATHER: , HTN MATERNAL GRAND MOTHER: 1 BROTHER(S) . 1 SON(S) , 1 DAUGHTER(S) - HEALTHY. BROTHER AAA, HYPERTENSION. SOCIAL HISTORY GENERAL: TOBACCO USE ARE YOU A:CURRENT SMOKER PT. IS CURRENTLY WORKING ON QUITTING WITH PCP ARE YOU INTERESTED IN QUITTING?READY TO QUIT PREVIOUS QUIT ATTEMPTS?YES, MORE THAN 6 MONTHS AGO. COUNSELED THE PATIENT ON TOBACCO USE, CESSATION [id number]/2020 HOW MANY CIGARETTES A DAY DO YOU SMOKE?11-20 HOW SOON AFTER YOU WAKE UP DO YOU SMOKE YOUR FIRST CIGARETTE?WITHIN 5 MIN HOW OFTEN DO YOU SMOKE CIGARETTES?EVERY DAY PATIENT COUNSELED ON THE DANGERS OF TOBACCO USE AND URGED TO QUIT:09/23/2019 LATEX QUESTIONNAIRE LATEX ALLERGY : HAVE YOU EVER DEVELOPED ANY TYPE OF REACTION AFTER HANDLING LATEX PRODUCTS SUCH RUBBER GLOVES, CONDOMS, DIAPHRAGMS, BALLOONS, SOCKS, OR UNDERWEAR?NO LATEX ALLERGY : HAVE YOU EVER DEVELOPED ANY TYPE OF REACTION DURING OR AFTER DENTAL APPOINTMENT, VAGINAL/RECTAL EXAMINATION, SURGICAL PROCEDURE, OR ANY OTHER EXPOSURE?NO LATEX RISK : HAVE YOU EVER HAD ANY DIFFICULTY BREATHING OR HIVES AFTER EATING OR HANDLING ANY FRUITS, OR VEGETABLES; SUCH KIWI, BANANAS, STONE FRUITS, OR CHESTNUTSNO LATEX RISK : DO YOU HAVE A PREVIOUS PERSONAL HISTORY OF MORE THAN NINE SURGERIES, SPINA BIFIDA, OR REPEATED CATHERIZATIONS? NO LATEX RISK : ARE YOU FREQUENTLY EXPOSED TO LATEX PRODUCTS IN YOUR OCCUPATION?YES DATE ASKED : 09/23/2019 ALCOHOL SCREENING DID YOU HAVE A DRINK CONTAINING ALCOHOL IN THE PAST YEAR?NO POINTS0 INTERPRETATIONNEGATIVE RECREATIONAL DRUG USE DRUG USE?NO CAFFEINE CAFFEINE USE?YES HOW OFTEN AND HOW MUCH? 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 EXERCISE: NONE. MARITAL STATUS: .. OTHERS AT HOME: CHILD. PAIN CLINIC PFS, CLERGY, PUBLIC HEALTH REFERRALS PFS REFERRAL NEEDED?NO CLERGY REFERRAL NEEDED?NO PUBLIC HEALTH REFERRAL NEEDED?NO HAS THE PATIENT BEEN EDUCATED REGARDING HIS/HER PLAN OF CARE?YES HAS THE PATIENT BEEN EDUCATED REGARDING PAIN, THE RISK FOR PAIN, THE IMPORTANCE OF EFFECTIVE PAIN MANAGEMENT, AND THE PAIN ASSESSMENT PROCESS?YES ADVANCE DIRECTIVE ADVANCE DIRECTIVE DISCUSSED WITH PATIENT:YES 09/22/201 PT DOES NOT HAVE ANY ADVANCED DIRECTIVES. SHE DECLINES INFORMATION ON HCP AT THIS TIME. AD HOSPITALIZATION/MAJOR DIAGNOSTIC PROCEDURE PARASITIC INFECTION 09/2010 VITAL SIGNS WT 145 LBS, HT 64 IN, BMI 24.89 INDEX, BP 157/84 MM HG, HR 88 /MIN, RR 18 /MIN, TEMP 98.2 F, OXYGEN SAT % 95%, SAFE IN ENV? (Y/N) YES, NA INITIALS AW 1150, REVIEWED BY: NLJeremi. EXAMINATION GENERAL EXAMINATION: THE PATIENT IS ALERT, ORIENTED TIMES THREE AND COOPERATIVE. HEART SHOWS REGULAR RHYTHM, NO MURMURS AND NO GALLOPS. LUNGS ARE CLEAR TO AUSCULTATION. 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 ALERT, ORIENTED, FITO FERREIRA 09/24/2019 12:50:39 PM > RESP: 1. REGULAR, NO DYSPNEA, HANNAFITO 09/24/2019 12:50:44 PM > COLOR: 1. PINK, HANNAFITO 09/24/2019 12:50:49 PM > SKIN: 1. WARM, DRY, HANNAFITO 09/24/2019 12:50:53 PM > POSITION: 1. PRONE, HANNAFITO 09/24/2019 12:50:58 PM > VITALS: HANNAFITO 09/24/2019 12:51:03 PM > 141/70-69-18-94% , HANNAFITO 09/24/2019 12:59:40 PM > 136/76-71-18-91% 1314- 148/76-71-18-98% DISCHARGE: POST PAIN 06/01, DRESSING SITE DRY AND INTACT, IV N/A, GAIT STEADY, TEACHING COMPLETED, PATIENT ACKNOWLEDGES UNDERSTANDING YES, PATIENT DISCHARGED AT 1323 PN SI PRE PROCEDURE DIAGNOSIS SACROILIITIS, SACROILIAC JOINT DYSFUNCTION POST PROCEDURE DIAGNOSIS SACROILIITIS, SACROILIAC JOINT DYSFUNCTION PROCEDURE RIGHT SACROILIAC JOINT BLOCK SURGEON DR. BEAR GOLDSTEIN TAB MACHINE OPERATOR NONE ANESTHESIA LOCAL PRE PROCEDURE NOTE THE PATIENT WITH HISTORY OF CHRONIC LOW BACK PAIN. I EVALUATED THE PATIENT AND REVIEWED THE CHART. I WENT OVER THE RISKS, ALTERNATIVES, AND BENEFITS ASSOCIATED WITH THIS PROCEDURE. I DISCUSSED THAT THE USE OF STEROIDS MAY CONTRIBUTE TO IMMUNOSUPPRESSION OF THE PATIENT'S BODY AGAINST INFECTIONS SUCH THE CROFT VIRUS, COVID-19. THE PATIENT IS AWARE OF THE POTENTIAL COMPLICATIONS ASSOCIATED WITH AN INFECTION OF THIS VIRUS INCLUDING . THE PATIENT WOULD LIKE TO PROCEED AND GAVE CONSENT TO PERFORM THE PROCEDURE. THE PATIENT DENIES UNEXPLAINABLE WEIGHT LOSS, FEVER, CHILLS, OR NEW CHANGES IN URINARY OR BOWEL CONTROL. THE PATIENT IS COVID-19 NEGATIVE DESCRIPTION OF PROCEDURE THE PATIENT WAS BROUGHT TO THE PROCEDURE ROOM AND PLACED IN THE PRONE POSITION. THE LUMBOSACRAL AREA WAS CLEANED WITH CHLORAPREP SOLUTION AND DRAPED ASEPTICALLY. THE PROCEDURE WAS DONE UNDER STERILE CONDITIONS. I CHECKED LATERALITY AND THE LEVEL WHERE THE PROCEDURE WAS GOING TO BE PERFORMED WITH THE PATIENT AND THE SUPPORTING STAFF AT THE MOMENT OF THE TIME OUT IN THE PROCEDURE ROOM. UNDER FLUOROSCOPIC GUIDANCE, TARGET POINT WAS SELECTED AT THE LOWER BORDER OF THE RIGHT SACROILIAC JOINT. TARGET POINT WAS SELECTED AFTER MEDIAL ROTATION AND TILT OF THE MAGNIFIER OF THE C-ARM. LIDOCAINE WAS USED TO NUMB THE SKIN AND SUBCUTANEOUS TISSUE BELOW IT. A SPINAL NEEDLE, 22-GAUGE, WAS ADVANCED UNDER FLUOROSCOPIC GUIDANCE AND FOLLOWING PATIENT FEEDBACK UNTIL THE TARGET AREA WAS TOUCHED. THE POSITION OF THE NEEDLE WAS VERIFIED WITH AP AND LATERAL VIEWS. AFTER PROPER POSITION OF THE NEEDLE WAS ACHIEVED, ISOVUE M DYE 30%, 0.25 ML, WAS INJECTED SHOWING SPREAD OF THE DYE. THEN, A SOLUTION OF 10 MG OF DEXAMETHASONE WAS INJECTED IN THE RIGHT JOINT WITH 3 ML OF BUPIVACAINE 0.125%. THERE WAS NO EVIDENCE OF BLOOD, PARESTHESIA OR CEREBROSPINAL FLUID DURING THE PROCEDURE. THE PATIENT WAS SENT TO THE RECOVERY ROOM. THE PATIENT WAS MOVING THE EXTREMITIES AND DOING WELL. THERE WAS NO COMPLICATION DURING THE PROCEDURE. FLUOROSCOPY TIME WAS 28 SECONDS POST PROCEDURE NOTE THE PROCEDURE DONE WAS DISCUSSED WITH THE PATIENT. THE PATIENT WILL BE SEEN IN A FOLLOW UP IN THE NEXT FEW WEEKS. I AM LOOKING FOR LONG LASTING PAIN RELIEF FOR THE PATIENT WITH THIS INTERVENTION. INSTRUCTIONS WERE GIVEN, QUESTIONS WERE ANSWERED, AND THE PATIENT EXPRESSED UNDERSTANDING AND AGREES WITH THE PLAN. THE PAINT IS AWARE TO STAY HOME FOR THE NEXT WEEK, IF POSSIBLE, DUE TO COVID-19. I, SHMUEL JOHNSTON, DOCUMENTED THE ABOVE INFORMATION ACTING A SCRIBE FOR DR. GOLDSTEIN. I HAVE REVIEWED THE ABOVE DOCUMENT, WRITTEN BY SHMUEL JOHNSTON, MANAGER EMPLOYEE BENEFITS, AND I VERIFY THAT IT IS ACCURATE PROCEDURE CODES 19331 INJECT SACROILIAC JOINT, MODIFIERS: RT DISPOSITION & COMMUNICATION FOLLOW UP F/UP WITH DRUG DEPARTMENT WORKER (REASON: POST RIGHT SIJ) ELECTRONICALLY SIGNED BY BEAR GOLDSTEIN MD, MD ON 09/24/2019 AT 03:13 PM EDT DISCLAIMER : THIS IS A VISIT SUMMARY EXTRACTED FROM THE [employer] CHART. IT IS NOT A COPY OF THE [employer] PROGRESS NOTE. LELIA
== END ==
LOC: M PAIN 11:45
PROVIDERS: ATTEND Anesthesiology
DX: M46.1 Sacroiliitis, not elsewhere classified (principal); M53.3 Sacrococcygeal disorders, not elsewhere classified
CPT/HCPCS: G0260; J1100; Q9967

== ENCOUNTER → 2019-10-14 | Outpatient (CLI) | payer MEDICARE, OTHER ==
[~2019-10-14] MED LIST changes: -BUPIVACAINE HCL 0.25% 30ML VIAL As Ordered ONE; -ISOVUE-M 300 61% 15ML VIAL As Ordered ONE; -LIDOCAINE 1% SDV 30ML VIAL As Ordered ONE; -dexameTHASONE 10MG/1ML VIAL PRES.FREE (J1100 PER 1MG) As Ordered ONE; -diazePAM 5 MG TAB As Ordered ONE; -oxyCODONE 5MG TAB As Ordered ONE
--- NOTE | 2019-10-16 02:57 | ECWPNPC ---
PATIENT NAME: REYNA CABRERA : 1950 GENDER: FEMALE VISIT DATE: 10/14/2019 DISCHARGE DATE: 10/14/19 1351 VISIT LOCKED DATE TIME: PHYSICIAN: RUBINA RAMOS RESOURCE: RUBINA RAMOS REASON FOR APPOINTMENT 1. POST RIGHT SIJ HISTORY OF PRESENT ILLNESS DEPRESSION SCREENING: PHQ-9 LITTLE INTEREST OR PLEASURE IN DOING THINGSSEVERAL DAYS FEELING DOWN, DEPRESSED, OR HOPELESSNOT AT ALL TROUBLE FALLING OR STAYING ASLEEP, OR SLEEPING TOO MUCHSEVERAL DAYS FEELING TIRED OR HAVING LITTLE ENERGYSEVERAL DAYS POOR APPETITE OR OVEREATING NOT AT ALL FEELING BAD ABOUT YOURSELF-OR THAT YOU ARE A FAILURE OR HAVE LET YOURSELF OR YOUR FAMILY DOWN NOT AT ALL TROUBLE CONCENTRATING ON THINGS, SUCH READING THE NEWSPAPER OR WATCHING TELEVISION NOT AT ALL MOVING OR SPEAKING SO SLOWLY THAT OTHER PEOPLE COULD HAVE NOTICED. OR THE OPPOSITE- BEING SO FIDGETY OR RESTLESS THAT YOU HAVE BEEN MOVING AROUND A LOT MORE THAN USUALNOT AT ALL THOUGHTS THAT YOU WOULD BE BETTER OFF , OR OF HURTING YOURSELF IN SOME WAY?NOT AT ALL TOTAL SCORE:3 INTERPRETATIONMINIMAL DEPRESSION PHQ-2 (2015 EDITION) LITTLE INTEREST OR PLEASURE IN DOING THINGS?SEVERAL DAYS FEELING DOWN, DEPRESSED, OR HOPELESS?NOT AT ALL TOTAL SCORE1 69-YEAR-OLD FEMALE IN FOR POST SIJ FOLLOW-UP. PATIENT FEELS THE PROCEDURE WAS SUCCESSFUL OVERALL RATING HER PAIN PREPROCEDURE AT A 3-6 OUT OF 10 AND POST PROCEDURE AT A 0 OUT OF 10. SHE FURTHER STATES THE PROCEDURE CONTINUES TO HELP HER TODAY. GENERAL: -. FALL RISK SCREENING: SCREENING :ONE FALL WITHOUT INJURY IN THE PAST YEAR PT REPORTS A FALL IN JUNE, NO ED VISIT, BUT FEELS SHE HURT HER BACK PAIN SCREENING: PATIENT HAS A COMPLAINT OF ACUTE OR CHRONIC PAIN :YES LOCATION OF PAIN:LOW BACK, THIGH(S) INTENSITY OF PAIN (SCALE OF 1 TO 10):4 WHAT DOES YOUR PAIN FEEL LIKE:ACHING WHEN SHE GETS UP IN THE MORNING, OR GETS UP AFTER PROLONGED SITTING, HAS A "TIGHTNESS" AND "PAINFUL PINS AND NEEDLES" IN HER THIGHS AND LOWER BACK LASTING ABOUT 5 MINUTES. PAIN IS INCREASED BY: PROLONGED SITTING, PROLONGED STANDING NURSING NOTE: -. PAIN CENTER INTAKE QUESTIONS: DO YOU HAVE A HISTORY OF MRSA? :NO DO YOU TAKE A BLOOD THINNERS? :NO DO YOU HAVE ANY BLEEDING DISORDERS? :NO ANY NEW NUMBNESS OR WEAKNESS IN YOUR LEGS OR ARMS? :YES DESCRIBED ABOVE ANY PACEMAKER,DEFIBRILLATOR, OR DORSAL COLUMN STIMULATOR? :NO DO YOU HAVE ANY RASHES OR OPEN SORES? :NO ARE YOU ALLERGIC TO IV DYE? :NO ARE YOU DIABETIC? :NO ANY NEW PROBLEMS WITH YOUR MEDICATIONS? :NO HAVE YOU RECEIVED A VACCINE IN THE PAST 30 DAYS? :NO DO YOU PLAN TO RECEIVE A VACCINE IN THE NEXT 21 DAYS? :NO DO YOU NEED ANY PRESCRIPTION? :NO DO YOU TAKE ANY IMMUNOSUPPRESSIVE MEDICATIONS? :NO IS THERE A CHANCE YOU COULD BE ? :NO ARE YOU BREAST FEEDING? :NO CURRENT MEDICATIONS TAKING CYCLOBENZAPRINE HCL 5 MG TABLET 1 TABLET AT BEDTIME NEEDED ORALLY ONCE A DAY, NOTES: NONE IN A FEW DAYS TAKING BENZONATATE 100 MG CAPSULE 1 CAPSULE ORALLY EVERY 4 HOURS NEEDED, NOTES: 09/24/2019699 TAKING ALBUTEROL SULFATE HFA 108 (90 BASE) MCG/ACT AEROSOL SOLUTION 2 PUFFS NEEDED INHALATION EVERY 4 HRS, NOTES: 09/24/2019699 TAKING ADVAIR DISKUS 250-50 MCG/DOSE AEROSOL POWDER BREATH ACTIVATED 1 PUFF INHALATION TWICE A DAY, NOTES: 09/23/2019899 TAKING OMEPRAZOLE 40 MG CAPSULE DELAYED RELEASE 1 CAPSULE ORALLY DAILY, NOTES: 09/24/2019699 TAKING PAROXETINE HCL 20 MG TABLET 1 TABLET IN THE MORNING ORALLY ONCE A DAY, NOTES: 09/24/2019699 TAKING EXCEDRIN EXTRA STRENGTH 250-250-65 MG TABLET 2 TABLETS NEEDED FOR PAIN ORALLY NEEDED, NOTES: PRN TAKING PRESERVISION AREDS - TABLET DIRECTED ORALLY DAILY, NOTES: 09/23/2019899 TAKING MAY USE HYDRO EYES 1 TABLET FOR DRY EYES DAILY, NOTES: 09/23/2019899 TAKING ASPIRIN ADULT LOW DOSE 81 MG TABLET DELAYED RELEASE 1 TABLET ORALLY ONCE A DAY, NOTES: 09/23/2019899 TAKING CENTRUM SILVER ULTRA WOMENS - TABLET 1 TAB ORALLY DAILY, NOTES: 09/23/2019899 TAKING SYSTANE 0.4-0.3 % SOLUTION 1 DROP BOTH EYES OPHTHALMIC NEEDED, NOTES: PRN TAKING TYLENOL ALLERGY SINUS NOT-TAKING RETAINE CMC 0.5 % SOLUTION 1 DROP INTO AFFECTED EYE NEEDED OPHTHALMIC 24 TIME(S) A DAY, NOTES: CURRENTLY OUT OF, WILL BE RESTARTING IN THE FUTURE NOT-TAKING MAY USE 25 MG CBD OIL 3/4 A DROPPER FUL SUBLINGUALLY DAILY, NOTES: CURRENTLY OUT OF, WILL BE RESTARTING IN THE FUTURE NOT-TAKING DICLOFENAC SODIUM 50 MG TABLET DELAYED RELEASE 1 TABLET WITH FOOD OR MILK ORALLY THREE TIMES A DAY MEDICATION LIST REVIEWED AND RECONCILED WITH THE PATIENT PAST MEDICAL HISTORY DYSLIPIDEMIA- MIXED HYPERLIPIDEMIA S/P CARDIAC CATH D/T ABN EKG RECURRENT SINUSITIS - IMPROVED S/P SURGERY ALLERGIC RHINITIS RIGHT ETHMOID TUMOR THAT WAS RESECTED IN THE EARLY RT SINUS TUMOR 1985 DEPRESSION/PANIC ATTACKS/ HIATAL HERNIA/GERD - REINDL CHRONIC PATE- MIGRAINE/CLUSTER 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 DR CHRISTAL JASMINE, DR CARA CHAPMAN-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 - PT IS BEING FOLLOWED FOR RECONSTRUCTIVE SURGERY IN OCTOBER 2012 BACK PAIN - PAIN CLINIC KNEE PAIN -TORN MENISCUS - ORTHO OSTEOPENIA - HIPS DEXA 08/07 FX OF THE TIBIAL PLATEAU RIGHT KNEE LIPAFLOW EYE TREATMENTS ALLERGIES VICODIN: NAUSEA/VOMITING - SIDE EFFECTS SURGICAL HISTORY KNEE ARTHROSCOPY-RIGHT C SECTION RIGHT SINUS TUMOR REMOVAL 1985 LEFT CARPAL TUNNEL RELEASE 2001 TOTAL HYSTERECTOMY D/T FOR BLEEDING, BILATERAL OVARIES INTACT COLONOSCOPY -NL 2007 SEPTOPLASTY ([facility]) 10/2012 EGD REINDL - NORMAL 07/03 CARPAL TUNNEL RELEASE R 8--14 WISDOM TOOTH 11-16 LIPAFLOW TREATMENT BILATERAL EYES FOLLOWED BY BBL LASER LIGHT EYE SURGERY X 2 ONE MONTH APART 07/2019 FAMILY HISTORY FATHER: , MASSIVE HEART ATTACK AT 63 MOTHER: ALIVE 95 YRS, HTN, BLADDER CANCER NONINVASIVE, BOTH EYES MACULAR DEGENERATION, THYROID DISEASE SIBLINGS: ALIVE, BROTHER HAS HTN AND HX. OF ANEURYSM SON(S): ALIVE DAUGHTER(S): ALIVE PATERNAL GRAND FATHER: , ? CANCER PATERNAL GRAND MOTHER: , [place] MATERNAL GRAND FATHER: , HTN MATERNAL GRAND MOTHER: 1 BROTHER(S) . 1 SON(S) , 1 DAUGHTER(S) - HEALTHY. BROTHER AAA, HYPERTENSION. SOCIAL HISTORY GENERAL: TOBACCO USE ARE YOU A:CURRENT SMOKER PT. IS CURRENTLY WORKING ON QUITTING WITH PCP ARE YOU INTERESTED IN QUITTING?READY TO QUIT PREVIOUS QUIT ATTEMPTS?YES, MORE THAN 6 MONTHS AGO. COUNSELED THE PATIENT ON TOBACCO USE, CESSATION [id number]/21/2020 HOW MANY CIGARETTES A DAY DO YOU SMOKE?11-20 HOW SOON AFTER YOU WAKE UP DO YOU SMOKE YOUR FIRST CIGARETTE?WITHIN 5 MIN HOW OFTEN DO YOU SMOKE CIGARETTES?EVERY DAY PATIENT COUNSELED ON THE DANGERS OF TOBACCO USE AND URGED TO QUIT:09/23/2019 LATEX QUESTIONNAIRE LATEX ALLERGY : HAVE YOU EVER DEVELOPED ANY TYPE OF REACTION AFTER HANDLING LATEX PRODUCTS SUCH RUBBER GLOVES, CONDOMS, DIAPHRAGMS, BALLOONS, SOCKS, OR UNDERWEAR?NO LATEX ALLERGY : HAVE YOU EVER DEVELOPED ANY TYPE OF REACTION DURING OR AFTER DENTAL APPOINTMENT, VAGINAL/RECTAL EXAMINATION, SURGICAL PROCEDURE, OR ANY OTHER EXPOSURE?NO DATE ASKED : 09/23/2019 LATEX RISK : HAVE YOU EVER HAD ANY DIFFICULTY BREATHING OR HIVES AFTER EATING OR HANDLING ANY FRUITS, OR VEGETABLES; SUCH KIWI, BANANAS, STONE FRUITS, OR CHESTNUTSNO LATEX RISK : DO YOU HAVE A PREVIOUS PERSONAL HISTORY OF MORE THAN NINE SURGERIES, SPINA BIFIDA, OR REPEATED CATHERIZATIONS? NO LATEX RISK : ARE YOU FREQUENTLY EXPOSED TO LATEX PRODUCTS IN YOUR OCCUPATION?YES ALCOHOL SCREENING DID YOU HAVE A DRINK CONTAINING ALCOHOL IN THE PAST YEAR?NO POINTS0 INTERPRETATIONNEGATIVE RECREATIONAL DRUG USE DRUG USE?NO CAFFEINE CAFFEINE USE?YES HOW OFTEN AND HOW MUCH? 6 CUPS OF COFFEE PER DAY EPISCOPALIAN [id number] [employer] L[employer]AGE LANGUAGES SPOKEN:BELARUSIAN EDUCATION LEVEL OF EDUCATION:FINISHED COLLEGE LEARNING BARRIERS / SPECIAL NEEDS CHANGE FROM LAST VISIT?NO BARRIERS TO LEARNING?NO HEARING IMPAIRED?NO VISION IMPAIRED?YES COGNITIVELY IMPAIRED?NO :CORRECTIVE LENSES READINESS TO LEARN?YES LEARNING PREFERENCES?YES :DEMONSTRATION/VERBAL INSTRUCTION, OTHER (PLEASE COMMENT) HANDS ON LEARNING CAPABILITIES PRESENT?YES EMOTIONAL BARRIERS?NO SPECIAL DEVICES?NO POTTER OR CERAMIC ARTIST NEEDED?NO DOMESTIC VIOLENCE DO YOU FEEL SAFE IN YOUR ENVIRONMENT?YES 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 EXERCISE: NONE. MARITAL STATUS: .. OTHERS AT HOME: CHILD. PAIN CLINIC PFS, CLERGY, PUBLIC HEALTH REFERRALS PFS REFERRAL NEEDED?NO CLERGY REFERRAL NEEDED?NO PUBLIC HEALTH REFERRAL NEEDED?NO HAS THE PATIENT BEEN EDUCATED REGARDING HIS/HER PLAN OF CARE?YES HAS THE PATIENT BEEN EDUCATED REGARDING PAIN, THE RISK FOR PAIN, THE IMPORTANCE OF EFFECTIVE PAIN MANAGEMENT, AND THE PAIN ASSESSMENT PROCESS?YES ADVANCE DIRECTIVE ADVANCE DIRECTIVE DISCUSSED WITH PATIENT:YES PT DOES NOT HAVE ANY ADVANCED DIRECTIVES. SHE DECLINES INFORMATION ON HCP AT THIS TIME. HOSPITALIZATION/MAJOR DIAGNOSTIC PROCEDURE PARASITIC INFECTION 09/2010 REVIEW OF SYSTEMS CONSTITUTIONAL: ANY RECENT FEVER NO . CHILLS NO . WEIGHT CHANGE OF UNKNOWN REASONS NO . GASTROENTEROLOGY: NEW UNEXPLAINABLE CHANGES IN BOWEL CONTROL NO . CONSTIPATION NO . GENITOURINARY: ANY NEW CHANGE IN BLADDER CONTROL? NO . NEUROLOGY: NEW ONSET DIZZINESS OR NEUROLOGICAL CHANGES NOT MENTIONED NO . NEW NUMBNESS OR PAIN PATTERNS NOT MENTIONED AND PERTINENT TO TODAY'S VISIT NO . CARDIOLOGY: NEW CHEST PRESSURE NO . NEW CHEST PAIN NO . RESPIRATORY: UNEXPLAINABLE COUGH NO . NEW SHORTNESS OF BREATH NO . VITAL SIGNS WT 149.8 LBS, HT 64 IN, BMI 25.71 INDEX, BP 134/68 MM HG, HR 74 /MIN, RR 18 /MIN, TEMP 97.2 F, OXYGEN SAT % 96%, NA INITIALS AW 1300. EXAMINATION GENERAL EXAMINATION: GENERALNO ACUTE DISTRESS, WELL NOURISHED AND HYDRATED. PSYCHAPPROPRIATE MOOD AND AFFECT . LUNGS:CLEAR TO AUSCULTATION BILATERALLY, NO WHEEZES, RHONCHI, RALES. HEART:NO MURMURS, REGULAR RATE AND RHYTHM. BACK:DENIES POINT TENDERNESS ALONG LUMBAR SPINE, SURROUNDING SKIN SHOWS NO ERYTHEMA, ECCHYMOSIS, INCREASED WARMTH, AND/OR SKIN ERUPTIONS NOTED. . ASSESSMENTS SPONDYLOSIS WITHOUT MYELOPATHY OR RADICULOPATHY, LUMBOSACRAL REGION - M47.817 (PRIMARY) TREATMENT SPONDYLOSIS WITHOUT MYELOPATHY OR RADICULOPATHY, LUMBOSACRAL REGION NOTES: BILATERAL THERAPEUTIC FACET BLOCK L4-L5 L5-S1. CLINICAL NOTES: 69-YEAR-OLD FEMALE IN FOR RIGHT SIJ. FOLLOW-UP. GIVEN PRESENTING SYMPTOMS AND RESULTS OF PHYSICAL EXAMINATION RECOMMEND BILATERAL THERAPEUTIC FACET BLOCK L4-L5 L5-S1 WITH POST PROCEDURAL FOLLOW-UP. PATIENT HAS EXPRESSED UNDERSTANDING OF AND WAS IN AGREEMENT WITH TREATMENT PLAN. GIVEN TIME TO ASK QUESTIONS AND EXPRESS CONCERNS. PREVENTIVE MEDICINE PAIN CLINIC TEACHING: PROCEDURE TEACHING INFORMATION HANDOUT FOR LUMBAR FACET BLOCKS PRINTED AND REVIEWED WITH PATIENT. PRE PROCEDURE INSTRUCTIONS REVIEWED WITH PATIENT, PATIENT VERBALIZES UNDERSTANDING. LAS. DISPOSITION & COMMUNICATION FOLLOW UP POSTPROCEDURE (REASON: BILATERAL THERAPEUTIC FACET BLOCK L4-L5 L5-S1) ELECTRONICALLY SIGNED BY SANTOSH MANDEL ON 10/15/2019 AT 08:07 AM EDT DISCLAIMER : THIS IS A VISIT SUMMARY EXTRACTED FROM THE [employer] CHART. IT IS NOT A COPY OF THE [employer] PROGRESS NOTE. LELIA
== END ==
LOC: M PAIN 13:00
PROVIDERS: ATTEND Family Medicine
DX: M47.817 Spondylosis without myelopathy or radiculopathy, lumbosacral region (principal)

== ENCOUNTER → 2019-10-31 | Outpatient (CLI) | payer MEDICARE, OTHER | LOC: M LABSMTC 11:40 | PROVIDERS: ATTEND Anesthesiology | DX: Z11.59 Encounter for screening for other viral diseases (principal) | CPT/HCPCS: C9803; U0003 ==

== ENCOUNTER → 2019-11-05 | Outpatient (CLI) | payer MEDICARE, OTHER ==
[~2019-11-05] MED LIST changes: +BUPIVACAINE HCL 0.25% 30ML VIAL As Ordered ONE; +ISOVUE-M 300 61% 15ML VIAL As Ordered ONE; +LIDOCAINE 1% SDV 30ML VIAL As Ordered ONE; +TRIAMCINOLONE ACETONIDE SUSP 40 MG/ML VIAL (J3301) As Ordered ONE; +diazePAM 5 MG TAB As Ordered ONE; +oxyCODONE 5MG TAB As Ordered ONE
--- NOTE | 2019-11-05 16:24 | REP ---
C-ARM VIEWS LOWER LUMBAR SPINE: CLINICAL HISTORY: Pain. Four C-arm views of the lower lumbar spine performed during bilateral facet injection by Dr. Mariano. [employer] are seen along the lower lumbar facet joints bilaterally. 35 seconds of fluoroscopy time utilized. Electronically Signed by Bhargav Lobato MD 11/09/2019 09:07 A
--- NOTE | 2019-11-07 01:21 | ECWPNPC ---
PATIENT NAME: REYNA CABRERA : 1950 GENDER: FEMALE VISIT DATE: 11/05/2019 DISCHARGE DATE: 11/05/19 1347 VISIT LOCKED DATE TIME: PHYSICIAN: BEAR GOLDSTEIN MD RESOURCE: BEAR GOLDSTEIN MD REASON FOR APPOINTMENT 1. BILATERAL THERAPEUTIC FACET BLOCK L4-L5 L5-S1 HISTORY OF PRESENT ILLNESS GENERAL: -. FALL RISK SCREENING: SCREENING :ONE FALL WITH INJURY IN THE PAST YEAR PAIN SCREENING: PATIENT HAS A COMPLAINT OF ACUTE OR CHRONIC PAIN :YES LOCATION OF PAIN:LOW BACK INTENSITY OF PAIN (SCALE OF 1 TO 10):5 WHAT DOES YOUR PAIN FEEL LIKE:ACHING, CONTINOUS, OTHER NURSING NOTE: -. PAIN CENTER INTAKE QUESTIONS: DO YOU HAVE A HISTORY OF MRSA? :NO DO YOU TAKE A BLOOD THINNERS? :NO DO YOU HAVE ANY BLEEDING DISORDERS? :NO ANY NEW NUMBNESS OR WEAKNESS IN YOUR LEGS OR ARMS? :YES NUMBNESS IN BOTH LEGS AFTER LAYING FOR PERIODS OF TIME ANY PACEMAKER,DEFIBRILLATOR, OR DORSAL COLUMN STIMULATOR? :NO DO YOU HAVE ANY RASHES OR OPEN SORES? :NO ARE YOU ALLERGIC TO IV DYE? :NO ARE YOU DIABETIC? :NO ANY NEW PROBLEMS WITH YOUR MEDICATIONS? :NO HAVE YOU RECEIVED A VACCINE IN THE PAST 30 DAYS? :NO DO YOU PLAN TO RECEIVE A VACCINE IN THE NEXT 21 DAYS? :NO DO YOU NEED ANY PRESCRIPTION? :NO DO YOU TAKE ANY IMMUNOSUPPRESSIVE MEDICATIONS? :NO ANY HISTORY OF SEIZURES? :NO ANY HISTORY OF CARDIAC ISSUES OR EVENTS? :NO DO YOU HAVE SLEEP APNEA? :NO ANY RECENT HEAD INJURY? :NO DO YOU HAVE ANY NEW INFECTIONS? :NO IS THERE A CHANCE YOU COULD BE ? :NO ARE YOU BREAST FEEDING? :NO WHEN DID YOU LAST EAT? : -11/04 5:15A WHEN DID YOU LAST DRINK? : -11/04 8A WHAT DID YOU LAST DRINK? : -BLACK COFFEE NAME OF PERSON DRIVING YOU HOME? : -SON [facility]IRK DO YOU HAVE ANY OTHER QUESTIONS OR CONCERNS? : - CURRENT MEDICATIONS TAKING CYCLOBENZAPRINE HCL 5 MG TABLET 1 TABLET AT BEDTIME NEEDED ORALLY ONCE A DAY, NOTES: 2 WEEKS TAKING BENZONATATE 100 MG CAPSULE 1 CAPSULE ORALLY EVERY 4 HOURS NEEDED, NOTES: 11/04 8A TAKING ALBUTEROL SULFATE HFA 108 (90 BASE) MCG/ACT AEROSOL SOLUTION 2 PUFFS NEEDED INHALATION EVERY 4 HRS, NOTES: 11/04 8A TAKING ADVAIR DISKUS 250-50 MCG/DOSE AEROSOL POWDER BREATH ACTIVATED 1 PUFF INHALATION TWICE A DAY, NOTES: 11/03 TAKING OMEPRAZOLE 40 MG CAPSULE DELAYED RELEASE 1 CAPSULE ORALLY DAILY, NOTES: 11/04 TAKING PAROXETINE HCL 20 MG TABLET 1 TABLET IN THE MORNING ORALLY ONCE A DAY, NOTES: 11/04 TAKING EXCEDRIN EXTRA STRENGTH 250-250-65 MG TABLET 2 TABLETS NEEDED FOR PAIN ORALLY NEEDED, NOTES: 11/04 8A TAKING PRESERVISION AREDS - TABLET DIRECTED ORALLY DAILY, NOTES: 11/03 8A TAKING MAY USE HYDRO EYES 1 TABLET FOR DRY EYES DAILY, NOTES: 11/04 TAKING ASPIRIN ADULT LOW DOSE 81 MG TABLET DELAYED RELEASE 1 TABLET ORALLY ONCE A DAY, NOTES: 11/03 TAKING CENTRUM SILVER ULTRA WOMENS - TABLET 1 TAB ORALLY DAILY, NOTES: 11/03 TAKING SYSTANE 0.4-0.3 % SOLUTION 1 DROP BOTH EYES OPHTHALMIC NEEDED, NOTES: 2 DAYS TAKING TYLENOL ALLERGY SINUS , NOTES: 11/03 NOT-TAKING RETAINE CMC 0.5 % SOLUTION 1 DROP INTO AFFECTED EYE NEEDED OPHTHALMIC 24 TIME(S) A DAY, NOTES: CURRENTLY OUT OF, WILL BE RESTARTING IN THE FUTURE NOT-TAKING MAY USE 25 MG CBD OIL 3/4 A DROPPER FUL SUBLINGUALLY DAILY, NOTES: CURRENTLY OUT OF, WILL BE RESTARTING IN THE FUTURE NOT-TAKING DICLOFENAC SODIUM 50 MG TABLET DELAYED RELEASE 1 TABLET WITH FOOD OR MILK ORALLY THREE TIMES A DAY MEDICATION LIST REVIEWED AND RECONCILED WITH THE PATIENT PAST MEDICAL HISTORY DYSLIPIDEMIA- MIXED HYPERLIPIDEMIA S/P CARDIAC CATH D/T ABN EKG RECURRENT SINUSITIS - IMPROVED S/P SURGERY ALLERGIC RHINITIS RIGHT ETHMOID TUMOR THAT WAS RESECTED IN THE EARLY RT SINUS TUMOR 1985 DEPRESSION/PANIC ATTACKS/ HIATAL HERNIA/GERD - REINDL CHRONIC PATE- MIGRAINE/CLUSTER 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 DR CHRISTAL JASMINE, DR CARA CHAPMAN-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 - PT IS BEING FOLLOWED FOR RECONSTRUCTIVE SURGERY IN OCTOBER 2012 BACK PAIN - PAIN CLINIC KNEE PAIN -TORN MENISCUS - ORTHO OSTEOPENIA - HIPS DEXA 08/07 FX OF THE TIBIAL PLATEAU RIGHT KNEE LIPAFLOW EYE TREATMENTS ALLERGIES VICODIN: NAUSEA/VOMITING - SIDE EFFECTS SURGICAL HISTORY KNEE ARTHROSCOPY-RIGHT C SECTION RIGHT SINUS TUMOR REMOVAL 1985 LEFT CARPAL TUNNEL RELEASE 2001 TOTAL HYSTERECTOMY D/T FOR BLEEDING, BILATERAL OVARIES INTACT COLONOSCOPY -NL 2007 SE[facility]OPLASTY ([facility]) 10/2012 EGD REINDL - NORMAL 07/03 CARPAL TUNNEL RELEASE R 8-04-04 WISDOM TOOTH 11-16 LIPAFLOW TREATMENT BILATERAL EYES FOLLOWED BY BBL LASER LIGHT EYE SURGERY X 2 ONE MONTH APART 07/2019 FAMILY HISTORY FATHER: , MASSIVE HEART ATTACK AT 63 MOTHER: ALIVE 95 YRS, HTN, BLADDER CANCER NONINVASIVE, BOTH EYES MACULAR DEGENERATION, THYROID DISEASE SIBLINGS: ALIVE, BROTHER HAS HTN AND HX. OF ANEURYSM SON(S): ALIVE DAUGHTER(S): ALIVE PATERNAL GRAND FATHER: , ? CANCER PATERNAL GRAND MOTHER: , [place] MATERNAL GRAND FATHER: , HTN MATERNAL GRAND MOTHER: 1 BROTHER(S) . 1 SON(S) , 1 DAUGHTER(S) - HEALTHY. BROTHER AAA, HYPERTENSION. SOCIAL HISTORY GENERAL: TOBACCO USE ARE YOU A:CURRENT SMOKER PT. IS CURRENTLY WORKING ON QUITTING WITH PCP ARE YOU INTERESTED IN QUITTING?READY TO QUIT PREVIOUS QUIT ATTEMPTS?YES, MORE THAN 6 MONTHS AGO. COUNSELED THE PATIENT ON TOBACCO USE, CESSATION [id number]/21/2020 HOW MANY CIGARETTES A DAY DO YOU SMOKE?11-20 HOW SOON AFTER YOU WAKE UP DO YOU SMOKE YOUR FIRST CIGARETTE?WITHIN 5 MIN HOW OFTEN DO YOU SMOKE CIGARETTES?EVERY DAY PATIENT COUNSELED ON THE DANGERS OF TOBACCO USE AND URGED TO QUIT:11/04/2019 LATEX QUESTIONNAIRE LATEX ALLERGY : HAVE YOU EVER DEVELOPED ANY TYPE OF REACTION AFTER HANDLING LATEX PRODUCTS SUCH RUBBER GLOVES, CONDOMS, DIAPHRAGMS, BALLOONS, SOCKS, OR UNDERWEAR?NO LATEX ALLERGY : HAVE YOU EVER DEVELOPED ANY TYPE OF REACTION DURING OR AFTER DENTAL APPOINTMENT, VAGINAL/RECTAL EXAMINATION, SURGICAL PROCEDURE, OR ANY OTHER EXPOSURE?NO LATEX RISK : HAVE YOU EVER HAD ANY DIFFICULTY BREATHING OR HIVES AFTER EATING OR HANDLING ANY FRUITS, OR VEGETABLES; SUCH KIWI, BANANAS, STONE FRUITS, OR CHESTNUTSNO LATEX RISK : DO YOU HAVE A PREVIOUS PERSONAL HISTORY OF MORE THAN NINE SURGERIES, SPINA BIFIDA, OR REPEATED CATHERIZATIONS? NO LATEX RISK : ARE YOU FREQUENTLY EXPOSED TO LATEX PRODUCTS IN YOUR OCCUPATION?YES DATE ASKED : 11/04/2019 ALCOHOL SCREENING DID YOU HAVE A DRINK CONTAINING ALCOHOL IN THE PAST YEAR?NO POINTS0 INTERPRETATIONNEGATIVE RECREATIONAL DRUG USE DRUG USE?NO CAFFEINE CAFFEINE USE?YES HOW OFTEN AND HOW MUCH? 6 CUPS OF COFFEE PER DAY YARSANI [id number] BUDDHISM LANGUAGE LANGUAGES SPOKEN:[place]ORE[place] EDUCATION LEVEL OF EDUCATION:FINISHED COLLEGE LEARNING BARRIERS / SPECIAL NEEDS CHANGE FROM LAST VISIT?NO BARRIERS TO LEARNING?NO HEARING IMPAIRED?NO VISION IMPAIRED?YES COGNITIVELY IMPAIRED?NO :CORRECTIVE LENSES READINESS TO LEARN?YES LEARNING PREFERENCES?YES :DEMONSTRATION/VERBAL INSTRUCTION, OTHER (PLEASE COMMENT) HANDS ON LEARNING CAPABILITIES PRESENT?YES EMOTIONAL BARRIERS?NO SPECIAL DEVICES?NO BILINGUAL ACCOUNT MANAGER NEEDED?NO DOMESTIC VIOLENCE DO YOU FEEL SAFE IN YOUR ENVIRONMENT?YES OCCUPATION: [employer]. 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 EXERCISE: NONE. MARITAL STATUS: .. OTHERS AT HOME: CHILD. PAIN CLINIC PFS, CLERGY, PUBLIC HEALTH REFERRALS PFS REFERRAL NEEDED?NO CLERGY REFERRAL NEEDED?NO PUBLIC HEALTH REFERRAL NEEDED?NO HAS THE PATIENT BEEN EDUCATED REGARDING HIS/HER PLAN OF CARE?YES HAS THE PATIENT BEEN EDUCATED REGARDING PAIN, THE RISK FOR PAIN, THE IMPORTANCE OF EFFECTIVE PAIN MANAGEMENT, AND THE PAIN ASSESSMENT PROCESS?YES ADVANCE DIRECTIVE ADVANCE DIRECTIVE DISCUSSED WITH PATIENT:YES PT DOES NOT HAVE ANY ADVANCED DIRECTIVES. SHE DECLINES INFORMATION ON HCP AT THIS TIME. HOSPITALIZATION/MAJOR DIAGNOSTIC PROCEDURE PARASITIC INFECTION 09/2010 VITAL SIGNS WT 146 LBS, HT 64 IN, BMI 25.06 INDEX, BP 134/63 MM HG, HR 60 /MIN, RR 18 /MIN, TEMP 97.4 F, OXYGEN SAT % 96%, SAFE IN ENV? (Y/N) Y, NA INITIALS SC 11:10, REVIEWED BY: LORENZA. EXAMINATION GENERAL EXAMINATION: THE PATIENT IS ALERT, ORIENTED TIMES THREE AND COOPERATIVE. HEART SHOWS REGULAR RHYTHM, NO MURMURS AND NO GALLOPS. LUNGS ARE CLEAR TO AUSCULTATION. ASSESSMENTS SPONDYLOSIS OF LUMBAR REGION WITHOUT MYELOPATHY OR RADICULOPATHY - M47.816 (PRIMARY) SPONDYLOSIS WITHOUT MYELOPATHY OR RADICULOPATHY, LUMBOSACRAL REGION - M47.817 TREATMENT SPONDYLOSIS OF LUMBAR REGION WITHOUT MYELOPATHY OR RADICULOPATHY [facility] FACET BLOCK (PAIN)[id number] MEDICATION: VALIUM TAB 5MG ORALLY (DIAZEPAM)CASEY BARNES RN 11/05/2019 12:09:30 PM > VERIFIED. FITO FERREIRA 11/05/2019 12:10:49 PM > LOT# [id number] EXP: 04/10 FITO FERREIRA 11/05/2019 12:14:10 PM > ADMINISTERED MEDICATION: OXYCODONE HCL TAB 10MG ORALLYCASEY BARNES RN 11/05/2019 12:09:51 PM > VERIFIED. FITO FERREIRA 11/05/2019 12:11:24 PM > LOT# [id number] EXP: 05/2021 FITO FERREIRA 11/05/2019 12:14:30 PM > ADMINISTERED PROCEDURES PAIN NURSING RECORD PRE-PROCEDURE IV SITE N/A, PRE-PROCEDURE ORAL MEDICATIONS VALIUM 5 MG PO AT 1214 BY Obed SCHWARTZ RN OXYCODONE 10 MG PO AT 1214 BY Obed SCHWARTZ RN PROCEDURE IN ROOM 1244, PHYSICIAN IN ROOM 1316, START 1322, FINISH 1327, PHYSICIAN OUT OF ROOM 1328, OUT OF ROOM 1336, STEROID KENALOG, O2 RA, ECG NORMAL SINUS, PATIENT SHIELDED YES, SAFETY STRAP YES, PREP CHLOROPREP BY Obed SCHWARTZ RN, IV INFUSED N/A, DRESSING TEGADERM BY DR GOLDSTEIN LOC: FITO FERREIRA 11/05/2019 12:48:08 PM > , 1. ALERT, ORIENTED RESP: FITO FERREIRA 11/05/2019 12:48:13 PM > , 1. REGULAR, NO DYSPNEA COLOR: FITO FERREIRA 11/05/2019 12:48:17 PM > , 1. PINK SKIN: FITO FERREIRA 11/05/2019 12:48:24 PM > , 1. WARM, DRY POSITION: FITO FERREIRA 11/05/2019 12:48:27 PM > , 1. PRONE VITALS: FITO FERREIRA 11/05/2019 12:48:32 PM > 133/77-64-18-95% , FITO FERREIRA 11/05/2019 1:12:19 PM > 139/65-74-18-94% , FITO FERREIRA 11/05/2019 1:22:26 PM > 143/66-63-18-93% , FITO FERREIRA 11/05/2019 1:44:30 PM > 143/79-66-18-97% DISCHARGE: POST PAIN 0-1/10 LOWER BILATERAL BACK, DRESSING SITE DRY AND INTACT, IV N/A, GAIT STEADY, TEACHING COMPLETED, PATIENT ACKNOWLEDGES UNDERSTANDING YES, PATIENT DISCHARGED AT 1345 PN LUMBAR FACET BLOCK THERAPEUTIC PRE PROCEDURE DIAGNOSIS LUMBAR SPONDYLOSIS, LUMBOSACRAL SPONDYLOSIS POST PROCEDURE DIAGNOSIS LUMBAR SPONDYLOSIS, LUMBOSACRAL SPONDYLOSIS PROCEDURE BILATERAL L4-L5 AND BILATERAL L5-S1 LUMBAR FACET THERAPEUTIC BLOCK SURGEON DR. BEAR GOLDSTEIN ELECTROMECHANICAL EQUIPMENT ASSEMBLER NONE ANESTHESIA LOCAL PRE PROCEDURE NOTE THE PATIENT HAS A HISTORY OF CHRONIC LOW BACK PAIN. I EVALUATED THE PATIENT AND REVIEWED THE CHART. I WENT OVER THE RISKS, ALTERNATIVES, AND BENEFITS ASSOCIATED WITH THIS PROCEDURE. I DISCUSSED THAT THE USE OF STEROIDS MAY CONTRIBUTE TO IMMUNOSUPPRESSION OF THE PATIENT'S BODY AGAINST INFECTIONS SUCH COVID-19. THE PATIENT IS AWARE OF THE POTENTIAL COMPLICATIONS ASSOCIATED WITH THIS VIRUS, INCLUDING, BUT NOT LIMITED TO, . I DISCUSSED THE USE OF DEXAMETHASONE INSTEAD OF KENALOG; HOWEVER, THE PATIENT WOULD LIKE TO MOVE FORWARD WITH KENALOG. THE PATIENT WOULD LIKE TO PROCEED AND GIVES CONSENT TO PERFORM THE PROCEDURE. THE PATIENT DENIES UNEXPLAINABLE WEIGHT LOSS, FEVER, CHILLS, OR NEW CHANGES IN URINARY OR BOWEL CONTROL. THE PATIENT IS COVID-19 NEGATIVE DESCRIPTION OF PROCEDURE THE PATIENT WAS BROUGHT TO THE PROCEDURE ROOM AND PLACED IN THE PRONE POSITION. THE LUMBOSACRAL AREA WAS CLEANED WITH CHLORAPREP SOLUTION AND DRAPED ASEPTICALLY. THE PROCEDURE WAS DONE UNDER STERILE CONDITIONS. A TIMEOUT WAS PERFORMED WHERE LATERALITY AND THE SITE OF THE PROCEDURE WERE CHECKED AND CONFIRMED WITH EVERYONE IN THE ROOM. UNDER FLUOROSCOPIC GUIDANCE, THE TARGET POINT WAS SELECTED AT THE RIGHT AND LEFT L4-L5 AND RIGHT AND LEFT L5-S1 FACET JOINTS. TARGET POINT WAS SELECTED AFTER LATERAL ROTATION AND TILT OF THE MAGNIFIER OF THE C-ARM. LIDOCAINE 0.5% WAS USED TO NUMB THE SKIN AND THE SUBCUTANEOUS TISSUE BELOW IT. SPINAL NEEDLES, 22-GAUGE, WERE ADVANCED UNDER FLUOROSCOPIC GUIDANCE AND FOLLOWING PATIENT FEEDBACK UNTIL THE TARGETS WERE TOUCHED. THE POSITION OF THE NEEDLES WAS VERIFIED WITH AP AND LATERAL VIEWS. AFTER PROPER POSITION OF THE NEEDLES WAS ACHIEVED, ISOVUE-M DYE 30%, 0.1 ML, WAS INJECTED SHOWING ADEQUATE SPREAD OF THE DYE. KENALOG 20 MG WAS INJECTED AT EACH SITE. THEN, A SOLUTION OF 1.0 ML OF BUPIVACAINE 0.125% OF WAS USED TO FLUSH EACH SITE. THE MEDICATION WAS VERIFIED WITH THE NURSE. THERE WAS NO EVIDENCE OF BLOOD, PARESTHESIA OR CEREBROSPINAL FLUID DURING THE PROCEDURE. THE PATIENT WAS SENT TO THE RECOVERY ROOM. THE PATIENT WAS MOVING THE EXTREMITIES AND DOING WELL. THERE WERE NO COMPLICATIONS DURING THE PROCEDURE. ESTIMATED BLOOD LOSS WAS LESS THAN 5 ML. FLUOROSCOPY TIME WAS 35 SECONDS POST PROCEDURE NOTE THE PATIENT WILL BE SEEN IN A FOLLOW UP IN THE NEXT FEW WEEKS. I AM LOOKING FOR LONG LASTING RELIEF FOR THE PATIENT WITH THIS INTERVENTION. INSTRUCTIONS WERE GIVEN, QUESTIONS WERE ANSWERED, AND THE PATIENT EXPRESSED UNDERSTANDING AND AGREES WITH THE PLAN. THE PATIENT IS AWARE TO STAY HOME FOR THE NEXT WEEK, IF POSSIBLE, DUE TO COVID-19. I, SHMUEL JOHNSTON, DOCUMENTED THE ABOVE INFORMATION ACTING A SCRIBE FOR DR. GOLDSETIN. I HAVE REVIEWED THE ABOVE DOCUMENT, WRITTEN BY SHMUEL JOHNSTON, PHOTOSTATIC COPY MAKER, AND I VERIFY THAT IT IS ACCURATE PROCEDURE CODES 94263 INJ PARAVERT F JNT L/S 1 LEV, MODIFIERS: 50 14141 INJ PARAVERT F JNT L/S 2 LEV, MODIFIERS: 50 DISPOSITION & COMMUNICATION FOLLOW UP F/UP WITH STEREOTYPER (REASON: POST LFBT EVAN L4-L5, L5-S1) ELECTRONICALLY SIGNED BY BEAR GOLDSTEIN MD, ON 11/06/2019 AT 06:35 PM EDT DISCLAIMER : THIS IS A VISIT SUMMARY EXTRACTED FROM THE [employer] CHART. IT IS NOT A COPY OF THE [employer] PROGRESS NOTE. LELIA
== END ==
LOC: M PAIN 10:30
PROVIDERS: ATTEND Anesthesiology
DX: M47.816 Spondylosis without myelopathy or radiculopathy, lumbar region (principal); M47.817 Spondylosis without myelopathy or radiculopathy, lumbosacral region
CPT/HCPCS: 64493; 64494; J3301; Q9967

== ENCOUNTER → 2020-01-31 | Outpatient (CLI) | payer MEDICARE, OTHER ==
[~2020-01-31] MED LIST changes: -BUPIVACAINE HCL 0.25% 30ML VIAL As Ordered ONE; -ISOVUE-M 300 61% 15ML VIAL As Ordered ONE; -LIDOCAINE 1% SDV 30ML VIAL As Ordered ONE; -TRIAMCINOLONE ACETONIDE SUSP 40 MG/ML VIAL (J3301) As Ordered ONE; -diazePAM 5 MG TAB As Ordered ONE; -oxyCODONE 5MG TAB As Ordered ONE
[2020-01-31 09:08] LABS: BASO # 0.1 10^3/uL (0.0-0.2); BASO % 0.7 % (0.0-1.0); EOS # 0.1 10^3/uL (0.0-0.5); EOS % 1.3 % (0.0-3.0); HEMATOCRIT 44.5 % (36.0-47.0); HEMOGLOBIN 14.8 g/dl (12.0-15.5); LYMPH # 2.1 10^3/uL (1.5-5.0); LYMPH % 28.6 % (24.0-44.0); MEAN CORPUSCULAR HEMOGLOBIN 30.4 pg (27.0-33.0); MEAN CORPUSCULAR HGB CONC 33.3 g/dl (32.0-36.5); MEAN CORPUSCULAR VOLUME 91.4 fl (80.0-96.0); MONO # 0.4 10^3/uL (0.0-0.8); MONO % 4.7 % (0.0-5.0); NEUTROPHILS # 4.8 10^3/uL (1.5-8.5); NEUTROPHILS % 64.3 % (36.0-66.0); PLATELET COUNT, AUTOMATED 211 10^3/uL (150-450); RED BLOOD COUNT 4.87 10^6/uL (4.00-5.40); WHITE BLOOD COUNT 7.4 10^3/uL (4.0-10.0)
[2020-01-31 09:42] LABS: ALBUMIN 3.7 GM/DL (3.2-5.2); ALT/SGPT 26 U/L (12-78); BILIRUBIN,TOTAL 0.3 MG/DL (0.2-1.0); BLOOD UREA NITROGEN 10 MG/DL (7-18); CALCIUM LEVEL 9.8 MG/DL (8.8-10.2); CARBON DIOXIDE LEVEL 32 MEQ/L (21-32); CHLORIDE LEVEL 106 MEQ/L (98-107); CHOLESTEROL LEVEL 208 MG/DL (<200); CHOLESTEROL RISK RATIO 5.621 (<5); CREATININE FOR GFR 0.78 MG/DL (0.55-1.30); GLOMERULAR FILTRATION RATE > 60.0 (>45); GLUCOSE, FASTING 98 MG/DL (70-100); HDL CHOLESTEROL 37 MG/DL (>40); LDL CHOLESTEROL 126 MG/DL (<100); NON-HDL-C 171 MG/DL; POTASSIUM SERUM 4.5 MEQ/L (3.5-5.1); SODIUM LEVEL 141 MEQ/L (136-145); TOTAL PROTEIN 6.5 GM/DL (6.4-8.2); TRIGLYCERIDES LEVEL 224 MG/DL (<150)
[2020-01-31 10:56] LABS: HEMOGLOBIN A1c 5.3 %
== END ==
LOC: M LAB 08:49
PROVIDERS: ATTEND Physician Assistant Medical
DX: E78.5 Hyperlipidemia, unspecified (principal); Z79.899 Other long term (current) drug therapy

== ENCOUNTER → 2020-02-12 | Outpatient (CLI) | payer MEDICARE, OTHER ==
[~2020-02-12] MED LIST changes: +GASTROGRAFIN SOLUTION 30ML (Q9963) As Ordered ONE; +ISOVUE-370 76% 100ML VIAL As Ordered ONE
--- NOTE | 2020-02-12 16:47 | REP ---
INDICATION: ABD DISTENTION. COMPARISON: 07/18/2006 TECHNIQUE: Axial contrast-enhanced images from the lung bases to the pubic symphysis using 100 cc Isovue 370 intravenous contrast material. Coronal and sagittal reformations obtained.. This CT examination was performed using the following dose reduction techniques: Automated exposure control, adjustment of mA and/or kv according to the patient's size, and the use of iterative reconstruction technique. FINDINGS: Liver, spleen, pancreas, gallbladder, bilateral adrenal glands and kidneys are essentially normal. Subcentimeter hepatic hypodensities likely represent small cysts. Simple appearing 1.8 cm lower pole right renal cyst noted. The enteric system including stomach, small, and large bowel appears normal. No evidence for obstruction or acute inflammatory process. Normal terminal ileum and appendix are identified in the right lower quadrant. Few scattered colonic diverticula noted without acute diverticulitis. Pelvis demonstrates normal bladder and evidence for prior hysterectomy. No ascites. No free air. No adenopathy. Atherosclerotic changes to the aorta and vasculature without aneurysm or dissection. Musculoskeletal structures demonstrate age-related changes without acute osseous abnormality. Lung bases demonstrate chronic changes and calcified granulomata. IMPRESSION: 1. Subcentimeter hepatic hypodensities likely representing small cysts too small to characterize by CT. 1.8 cm simple right renal cyst. 2. Scattered colonic diverticula. 3. No further acute abdominopelvic pathology appreciated. <Electronically signed by Gael Bowman > 02/12/20 [id number]
== END ==
LOC: M RAD 13:48
PROVIDERS: ATTEND Physician Assistant Medical
DX: N28.1 Cyst of kidney, acquired (principal); K57.30 Diverticulosis of large intestine without perforation or abscess without bleeding; R14.0 Abdominal distension (gaseous)
CPT/HCPCS: 74177; Q9963; Q9967

== ENCOUNTER → 2020-07-08 | Outpatient (CLI) | payer MEDICARE, OTHER ==
[~2020-07-08] MED LIST changes: -GASTROGRAFIN SOLUTION 30ML (Q9963) As Ordered ONE; -ISOVUE-370 76% 100ML VIAL As Ordered ONE
--- NOTE | 2020-07-08 14:00 | REPVR ---
PROCEDURE INFORMATION: Exam: CT Maxillofacial Without Contrast, Sinus Exam date and time: 07/08/2020 1:38 PM Age: 70 years old Clinical indication: Condition or disease; Other: Chronic sinusitis; Prior surgery; Surgery date: 6+ months TECHNIQUE: Imaging protocol: CT Maxillofacial without contrast. Focus on the sinuses. Radiation optimization: All CT scans at this facility use at least one of these dose optimization techniques: automated exposure control; mA and/or kV adjustment per patient size (includes targeted exams where dose is matched to clinical indication); or iterative reconstruction. COMPARISON: No relevant prior studies available. FINDINGS: Frontal sinuses: Normal. No air-fluid levels. Ethmoid air cells: No air-fluid levels. Sphenoid sinuses: Normal. No air-fluid levels. Maxillary sinuses: There is minimal mucosal thickening in the right maxillary sinus. Prior right medial maxillary antrostomy surgery has been performed. The left maxillary sinus is clear. Nasal cavity/Septum: Prior turbinectomy and right ethmoidectomy surgery has been performed. Orbital cavity: Orbits are normal. Globes are unremarkable. Bones/joints: Unremarkable. Soft tissues: Unremarkable. IMPRESSION: 1. No acute abnormality. 2. Chronic findings as discussed above. Electronically signed by: Georges Cruz On 07/08/2020 14:00:49 PM
== END ==
LOC: M RAD 13:17
PROVIDERS: ATTEND Physician Assistant Medical
DX: J32.9 Chronic sinusitis, unspecified (principal)

== ENCOUNTER → 2020-07-27 | Outpatient (CLI) | payer MEDICARE, OTHER ==
--- NOTE | 2020-07-27 15:36 | REP ---
INDICATION: PATE. COMPARISON: None. TECHNIQUE: Boqo-ni-wstnvh MRA of the brain. FINDINGS: The vertebral arteries are codominant. Basilar artery and stand grinder are unremarkable. Internal carotid arteries, proximal and distal MCA branches are unremarkable. A1 segments and ROCIO branches are normal. IMPRESSION: Normal MRA of the brain. No evidence of stenosis or occlusion. No aneurysm identified. <Electronically signed by Tima Pham > 07/27/20 [id number]
--- NOTE | 2020-07-27 15:37 | REP ---
INDICATION: PATE. COMPARISON: None. TECHNIQUE: Axial T1, T2, FLAIR, diffusion-weighted imaging obtained. Axial gradient images obtained. FINDINGS: No evidence of restricted diffusion to suggest acute infarction. No gradient echo susceptibility to suggest hemorrhage. The ventricles and extra-axial CSF spaces are within normal limits. No mass effect or midline shift. No abnormal fluid collections. The paranasal sinuses and mastoid air cells appear clear. There are a few scattered nonspecific white matter changes that are more associated with the posterior aspect of the lateral ventricles. IMPRESSION: No acute findings. Nonspecific white matter changes. <Electronically signed by Tima Pham > 07/27/20 [id number]
== END ==
LOC: M RAD 13:08
PROVIDERS: ATTEND Physician Assistant Medical
DX: G44.011 Episodic cluster headache, intractable (principal)

== ENCOUNTER → 2020-08-19 | Outpatient (CLI) | payer MEDICARE, OTHER ==
--- NOTE | 2020-08-19 20:15 | REPVR ---
PROCEDURE INFORMATION: Exam: MR Cervical Spine Without Contrast Exam date and time: 08/19/2020 7:24 PM Age: 70 years old Clinical indication: Neck pain; Patient HX: Neck and low back pain; Additional info: Radiculopathy c / L spine TECHNIQUE: Imaging protocol: Multiplanar magnetic resonance images of the cervical spine without contrast. COMPARISON: No relevant prior studies available. FINDINGS: Nonspecific straightening. Grade 1 anterolisthesis of C3 on C4. Mild retrolisthesis C4 on C5. Vertebral body heights are preserved. Multilevel disc desiccation and disc space narrowing. Degenerative endplate signal. No evidence of discitis/osteomyelitis. No abnormal cord signal or cord expansion. No epidural fluid collection. Reactive edema involving the left C3-C4 facet joint. Suspect atypical hemangioma at C6 measuring 6 mm. C2-C3: No significant central or foraminal stenosis. C3-C4: Vetg-ai-wlfwpnud disc osteophyte complex eccentric towards the left side with left greater than right uncinate spurring and facet joint arthropathy. There is mild central canal stenosis and severe left foraminal stenosis. C4-C5: Ayfk-lv-dveribzb disc osteophyte complex with bilateral uncinate spurring and facet joint arthropathy. There is zurx-li-elbsurmv central canal stenosis and severe bilateral foraminal stenosis. C5-C6: Mild disc osteophyte complex with bilateral uncinate spurring and facet joint hypertrophy. No significant central canal stenosis. Severe right and moderate to severe left foraminal stenosis. C6-C7: Wlwc-ji-zdmqzwfk disc osteophyte complex with uncinate spurring greater on the left. There is mild central canal stenosis and severe left foraminal stenosis. C7-T1: No significant stenosis. IMPRESSION: 1. Degenerative findings as above including mild central canal stenosis at C3-C4, npvx-fg-oaulfhud central canal stenosis at C4-C5, and mild central canal stenosis at C6-C7. 2. Reactive edema involving the left C3-C4 facet joint. Finding can be pain generating. Electronically signed by: Aiden Jeong On 08/19/2020 20:15:05 PM
--- NOTE | 2020-08-19 20:20 | REPVR ---
PROCEDURE INFORMATION: Exam: MR Lumbar Spine Without Contrast Exam date and time: 08/19/2020 7:24 PM Age: 70 years old Clinical indication: Patient HX: Neck and low back pain; Additional info: Radiculopathy c / L spine TECHNIQUE: Imaging protocol: Multiplanar magnetic resonance images of the lumbar spine without intravenous contrast. COMPARISON: MRI-Spine, L.S. without con 08/01/2018 6:19 PM FINDINGS: Mild retrolisthesis of L1 on L2, L2 on L3 and L5 on S1. Grade 1 anterolisthesis of L4 on L5. Chronic loss of height involving L4. There are multilevel degenerative endplate changes. No evidence of discitis/osteomyelitis. No epidural fluid collection. Conus medullaris terminates at L1. There is reactive edema involving the right L3-L4 facet joint. L1-L2: Mild to moderate disc bulge without significant central canal stenosis. There is mild bilateral foraminal stenosis. L2-L3: Ppwo-dm-ozozkzao disc bulge with mild facet joint arthropathy. No significant central canal stenosis. There is ckwi-dg-tqphgwgi bilateral foraminal stenosis. L3-L4: Moderate disc bulge with bilateral facet joint arthropathy, posterior laxity of ligamentum flavum and prominence of posterior epidural fat. There is moderate to severe central canal stenosis, moderate to severe right foraminal stenosis and moderate left foraminal stenosis. L4-L5: Previous laminectomy. There is disc bulge with bilateral facet joint arthropathy. No significant central canal stenosis. Severe right and moderate to severe left foraminal stenosis. L5-S1: Mpln-aj-nmzfzolg disc bulge with bilateral facet joint arthropathy and facet joint effusions. No significant central canal stenosis. There is mild right and severe left foraminal stenosis. IMPRESSION: Lumbar spine degenerative findings as above greatest at L3-L4 where there is severe central canal stenosis. Reactive edema involving the right L3-L4 facet joint. Finding can be pain generating. Electronically signed by: Aiden Jeong On 08/19/2020 20:19:59 PM
== END ==
LOC: M RAD 16:38
PROVIDERS: ATTEND Physician Assistant Medical
DX: M54.12 Radiculopathy, cervical region (principal); M54.16 Radiculopathy, lumbar region

== ENCOUNTER → 2020-10-26 | Outpatient (CLI) | payer MEDICARE, OTHER ==
--- NOTE | 2020-10-28 00:52 | ECWPNPC ---
PATIENT NAME: REYNA CABRERA : 1950 GENDER: FEMALE VISIT DATE: 10/26/2020 DISCHARGE DATE: 10/26/20 1355 VISIT LOCKED DATE TIME: PHYSICIAN: RUBINA RAMOS PHYSICIAN PAGER NO: ACTIVE RESOURCE: RUBINA RAMOS REASON FOR APPOINTMENT 1. BACK/NECK 2. ABDOMINAL PAIN HISTORY OF PRESENT ILLNESS DEPRESSION SCREENING: PHQ-9 LITTLE INTEREST OR PLEASURE IN DOING THINGSMORE THAN HALF THE DAYS FEELING DOWN, DEPRESSED, OR HOPELESSNOT AT ALL TROUBLE FALLING OR STAYING ASLEEP, OR SLEEPING TOO MUCHNOT AT ALL FEELING TIRED OR HAVING LITTLE ENERGYSEVERAL DAYS POOR APPETITE OR OVEREATING SEVERAL DAYS FEELING BAD ABOUT YOURSELF-OR THAT YOU ARE A FAILURE OR HAVE LET YOURSELF OR YOUR FAMILY DOWN NOT AT ALL TROUBLE CONCENTRATING ON THINGS, SUCH READING THE NEWSPAPER OR WATCHING TELEVISION NOT AT ALL MOVING OR SPEAKING SO SLOWLY THAT OTHER PEOPLE COULD HAVE NOTICED. OR THE OPPOSITE- BEING SO FIDGETY OR RESTLESS THAT YOU HAVE BEEN MOVING AROUND A LOT MORE THAN USUALNOT AT ALL THOUGHTS THAT YOU WOULD BE BETTER OFF , OR OF HURTING YOURSELF IN SOME WAY?NOT AT ALL TOTAL SCORE:4 INTERPRETATIONMINIMAL DEPRESSION PHQ-2 (2015 EDITION) LITTLE INTEREST OR PLEASURE IN DOING THINGS?MORE THAN HALF THE DAYS FEELING DOWN, DEPRESSED, OR HOPELESS?NOT AT ALL TOTAL SCORE2 GENERAL: HPI 70-YEAR-OLD FEMALE IN FOR CONSULT REGARDING NECK PAIN. PATIENT STATES THE PAIN HAS BEEN PRESENT FOR SOME TIME NOW SHE FURTHER STATES THE PAIN STARTS AT THE BASE OF HER HEAD AND RADIATES UPWARDS. PATIENT HAD BEEN ON DICLOFENAC IN THE PAST AND ADMITS THAT IT DID HELP HER HEADACHES HOWEVER SINCE THAT TIME SHE WAS TAKING OFF MEDS AND HAS NOT FOUND A MEDICATION THAT WAS OF BENEFIT. SHE RATES HER PAIN CURRENTLY AT A 5 OUT OF 10 AND DESCRIBES IT ACHING, BURNING AND CONTINUOUS.. - - -. FALL RISK SCREENING: SCREENING : NO FALLS REPORTED IN THE LAST YEAR. PAIN SCREENING: PATIENT HAS A COMPLAINT OF ACUTE OR CHRONIC PAIN :YES LOCATION OF PAIN:HEAD, NECK, LOW BACK, LEFT HIP, RIGHT HIP, LEG(S) INTENSITY OF PAIN (SCALE OF 1 TO 10):5 HEADACHES AVERAGE 3+ DAILY AND LOW BACK RANGES 4-8 WHAT DOES YOUR PAIN FEEL LIKE:ACHING, BURNING, CONTINOUS DURATION:CONTINOUS PAIN IS INCREASED BY:OTHERS NOT MOVING, PROLONGED SITTING, PROLONGED RIDING, PROLONGED WALKING PAIN IS DECREASED BY:OTHERS DICLOFENAC WAS HELPING HEADACHES- BUT HAD SOME SIDE EFFECTS SO DOES NOT USE ANYMORE NURSING NOTE: - - -. PAIN CENTER INTAKE QUESTIONS: DO YOU HAVE A HISTORY OF MRSA? :NO DO YOU TAKE A BLOOD THINNERS? :NO DO YOU HAVE ANY BLEEDING DISORDERS? :NO ANY NEW NUMBNESS OR WEAKNESS IN YOUR LEGS OR ARMS? :NO ANY PACEMAKER,DEFIBRILLATOR, OR DORSAL COLUMN STIMULATOR? :NO DO YOU HAVE ANY RASHES OR OPEN SORES? :NO ARE YOU ALLERGIC TO IV DYE? :NO ARE YOU DIABETIC? :NO ANY NEW PROBLEMS WITH YOUR MEDICATIONS? :NO HAVE YOU RECEIVED A VACCINE IN THE PAST 30 DAYS? :NO DO YOU PLAN TO RECEIVE A VACCINE IN THE NEXT 21 DAYS? :NO DO YOU NEED ANY PRESCRIPTION? :NO DO YOU TAKE ANY IMMUNOSUPPRESSIVE MEDICATIONS? :NO IS THERE A CHANCE YOU COULD BE ? :NO ARE YOU BREAST FEEDING? :NO CURRENT MEDICATIONS TAKING BENZONATATE 100 MG CAPSULE 1 CAPSULE ORALLY EVERY 4 HOURS NEEDED TAKING ALBUTEROL SULFATE HFA 108 (90 BASE) MCG/ACT AEROSOL SOLUTION 2 PUFFS NEEDED INHALATION EVERY 4 HRS TAKING ADVAIR DISKUS 250-50 MCG/DOSE AEROSOL POWDER BREATH ACTIVATED 1 PUFF INHALATION TWICE A DAY TAKING PAROXETINE HCL 20 MG TABLET 1 TABLET IN THE MORNING ORALLY ONCE A DAY TAKING EXCEDRIN EXTRA STRENGTH 250-250-65 MG TABLET 2 TABLETS NEEDED FOR PAIN ORALLY NEEDED TAKING PRESERVISION AREDS - TABLET DIRECTED ORALLY DAILY TAKING MAY USE HYDRO EYES 1 TABLET FOR DRY EYES DAILY TAKING ASPIRIN ADULT LOW DOSE 81 MG TABLET DELAYED RELEASE 1 TABLET ORALLY ONCE A DAY TAKING CENTRUM SILVER ULTRA WOMENS - TABLET 1 TAB ORALLY DAILY TAKING SYSTANE 0.4-0.3 % SOLUTION 1 DROP BOTH EYES OPHTHALMIC NEEDED TAKING TYLENOL ALLERGY SINUS TAKING FLONASE ALLERGY RELIEF 50 MCG/ACT SUSPENSION 1 SPRAY IN EACH NOSTRIL NASALLY ONCE A DAY TAKING MAGNESIUM 100 MG CAPSULE 1 CAPSULE WITH A MEAL ORALLY ONCE A DAY TAKING VITAMIN B12 100 MCG TABLET DIRECTED ORALLY TAKING RETAINE CMC 0.5 % SOLUTION DIRECTED OPHTHALMIC TAKING OMEPRAZOLE 40 MG CAPSULE DELAYED RELEASE 1 CAPSULE ORALLY DAILY NOT-TAKING PRILOSEC OTC 20 MG TABLET DELAYED RELEASE 1 TABLET 30 MINUTES BEFORE MORNING MEAL ORALLY ONCE A DAY NOT-TAKING CYCLOBENZAPRINE HCL 5 MG TABLET 1 TABLET AT BEDTIME NEEDED ORALLY ONCE A DAY NOT-TAKING RETAINE CMC 0.5 % SOLUTION 1 DROP INTO AFFECTED EYE NEEDED OPHTHALMIC 24 TIME(S) A DAY, NOTES: CURRENTLY OUT OF, WILL BE RESTARTING IN THE FUTURE NOT-TAKING MAY USE 25 MG CBD OIL 3/4 A DROPPER FUL SUBLINGUALLY DAILY, NOTES: CURRENTLY OUT OF, WILL BE RESTARTING IN THE FUTURE NOT-TAKING DICLOFENAC SODIUM 50 MG TABLET DELAYED RELEASE 1 TABLET WITH FOOD OR MILK ORALLY THREE TIMES A DAY DISCONTINUED PAROXETINE HCL 20 MG TABLET 1 TABLET IN THE MORNING ORALLY ONCE A DAY MEDICATION LIST REVIEWED AND RECONCILED WITH THE PATIENT PAST MEDICAL HISTORY DYSLIPIDEMIA- MIXED HYPERLIPIDEMIA S/P CARDIAC CATH D/T ABN EKG RECURRENT SINUSITIS - IMPROVED S/P SURGERY ALLERGIC RHINITIS RIGHT ETHMOID TUMOR THAT WAS RESECTED IN THE EARLY RT SINUS TUMOR 1985 DEPRESSION/PANIC ATTACKS/ HIATAL HERNIA/GERD - REINDL CHRONIC PATE- MIGRAINE/CLUSTER 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 DR CHRISTAL JASMINE, DR CARA CHAPMAN-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 - PT IS BEING FOLLOWED FOR RECONSTRUCTIVE SURGERY IN OCTOBER 2012 BACK PAIN - PAIN CLINIC KNEE PAIN -TORN MENISCUS - ORTHO OSTEOPENIA - HIPS DEXA 08/07 FX OF THE TIBIAL PLATEAU RIGHT KNEE LIPAFLOW EYE TREATMENTS 1ST COVID SHOT :05/22/2020 2ND: ALLERGIES VICODIN: NAUSEA/VOMITING - SIDE EFFECTS DOXYCYCLINE SURGICAL HISTORY KNEE ARTHROSCOPY-RIGHT C SECTION RIGHT SINUS TUMOR REMOVAL 1985 LEFT CARPAL TUNNEL RELEASE 2001 TOTAL HYSTERECTOMY D/T FOR BLEEDING, BILATERAL OVARIES INTACT COLONOSCOPY - 2007 SEPTOPLASTY ([facility]) 10/2012 EGD REINDL - NORMAL 07/03 CARPAL TUNNEL RELEASE R 8-12-14 WISDOM TOOTH 11-16 LIPAFLOW TREATMENT BILATERAL EYES FOLLOWED BY BBL LASER LIGHT EYE SURGERY X 2 ONE MONTH APART 07/2019 FAMILY HISTORY FATHER: , MASSIVE HEART ATTACK AT 63 MOTHER: ALIVE 96 YRS, HTN, BLADDER CANCER NONINVASIVE, BOTH EYES MACULAR DEGENERATION, THYROID DISEASE SIBLINGS: ALIVE, BROTHER HAS HTN AND HX. OF ANEURYSM SON(S): ALIVE DAUGHTER(S): ALIVE PATERNAL GRAND FATHER: , ? CANCER PATERNAL GRAND MOTHER: , [place] MATERNAL GRAND FATHER: , HTN MATERNAL GRAND MOTHER: 1 BROTHER(S) . 1 SON(S) , 1 DAUGHTER(S) - HEALTHY. BROTHER AAA, HYPERTENSION. SOCIAL HISTORY GENERAL: TOBACCO USE ARE YOU A:CURRENT SMOKER PT. IS CURRENTLY WORKING ON QUITTING WITH PCP ARE YOU INTERESTED IN QUITTING?READY TO QUIT PREVIOUS QUIT ATTEMPTS?YES, MORE THAN 6 MONTHS AGO. COUNSELED THE PATIENT ON TOBACCO USE, CESSATION [id number]/21/2020 HOW MANY CIGARETTES A DAY DO YOU SMOKE?11-20 HOW SOON AFTER YOU WAKE UP DO YOU SMOKE YOUR FIRST CIGARETTE?WITHIN 5 MIN HOW OFTEN DO YOU SMOKE CIGARETTES?EVERY DAY PATIENT COUNSELED ON THE DANGERS OF TOBACCO USE AND URGED TO QUIT:10/26/2020 LATEX QUESTIONNAIRE LATEX ALLERGY : HAVE YOU EVER DEVELOPED ANY TYPE OF REACTION AFTER HANDLING LATEX PRODUCTS SUCH RUBBER GLOVES, CONDOMS, DIAPHRAGMS, BALLOONS, SOCKS, OR UNDERWEAR?NO LATEX ALLERGY : HAVE YOU EVER DEVELOPED ANY TYPE OF REACTION DURING OR AFTER DENTAL APPOINTMENT, VAGINAL/RECTAL EXAMINATION, SURGICAL PROCEDURE, OR ANY OTHER EXPOSURE?NO LATEX RISK : HAVE YOU EVER HAD ANY DIFFICULTY BREATHING OR HIVES AFTER EATING OR HANDLING ANY FRUITS, OR VEGETABLES; SUCH KIWI, BANANAS, STONE FRUITS, OR CHESTNUTSNO LATEX RISK : DO YOU HAVE A PREVIOUS PERSONAL HISTORY OF MORE THAN NINE SURGERIES, SPINA BIFIDA, OR REPEATED CATHERIZATIONS? NO LATEX RISK : ARE YOU FREQUENTLY EXPOSED TO LATEX PRODUCTS IN YOUR OCCUPATION?YES DATE ASKED : 10/26/2020 ALCOHOL USE: NO. ALCOHOL SCREENING DID YOU HAVE A DRINK CONTAINING ALCOHOL IN THE PAST YEAR?NO POINTS0 INTERPRETATIONNEGATIVE RECREATIONAL DRUG USE DRUG USE?NO CAFFEINE CAFFEINE USE?YES HOW OFTEN AND HOW MUCH? 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 EXERCISE: NONE. MARITAL STATUS: .. OTHERS AT HOME: CHILD. - PFS REFERRAL NEEDED?NO CLERGY REFERRAL NEEDED?NO PUBLIC HEALTH REFERRAL NEEDED?NO HAS THE PATIENT BEEN EDUCATED REGARDING HIS/HER PLAN OF CARE?YES HAS THE PATIENT BEEN EDUCATED REGARDING PAIN, THE RISK FOR PAIN, THE IMPORTANCE OF EFFECTIVE PAIN MANAGEMENT, AND THE PAIN ASSESSMENT PROCESS?YES ADVANCE DIRECTIVE ADVANCE DIRECTIVE DISCUSSED WITH PATIENT:YES PT DOES NOT HAVE ANY ADVANCED DIRECTIVES. SHE DECLINES INFORMATION ON HCP AT THIS TIME. HOSPITALIZATION/MAJOR DIAGNOSTIC PROCEDURE PARASITIC INFECTION 09/2010 REVIEW OF SYSTEMS CONSTITUTIONAL: ANY RECENT FEVER NO . CHILLS NO . WEIGHT CHANGE OF UNKNOWN REASONS NO . GASTROENTEROLOGY: NEW UNEXPLAINABLE CHANGES IN BOWEL CONTROL NO . CONSTIPATION NO . GENITOURINARY: ANY NEW CHANGE IN BLADDER CONTROL? NO . NEUROLOGY: NEW ONSET DIZZINESS OR NEUROLOGICAL CHANGES NOT MENTIONED NO . NEW NUMBNESS OR PAIN PATTERNS NOT MENTIONED AND PERTINENT TO TODAY'S VISIT NO . CARDIOLOGY: NEW CHEST PRESSURE NO . PATIENT DENIES NO . RESPIRATORY: UNEXPLAINABLE COUGH NO . NEW SHORTNESS OF BREATH NO . VITAL SIGNS WT 145.0 LBS, HT 64 IN, BMI 24.89 INDEX, BP 148/70 MM HG, HR 67 /MIN, RR 18 /MIN, TEMP 98.0 F, OXYGEN SAT % 97%, SAFE IN ENV? (Y/N) YES, NA INITIALS AW 1257, REVIEWED BY: Obed SCHWARTZ RN. EXAMINATION GENERAL EXAMINATION: GENERALNO ACUTE DISTRESS, WELL NOURISHED AND HYDRATED. PSYCHAPPROPRIATE MOOD AND AFFECT . NECK:POINT TENDER ALONG CERVICAL SPINE, SURROUNDING SKIN SHOWS NO ERYTHEMA, ECCHYMOSIS, INCREASED WARMTH, AND NO SKIN ERUPTIONS NOTED. PATIENT DOES ENDORSE INCREASED PAIN WITH FACET LOADING.. LUNGS:CLEAR TO AUSCULTATION BILATERALLY, NO WHEEZES, RHONCHI, RALES. HEART:NO MURMURS, REGULAR RATE AND RHYTHM. ASSESSMENTS SPONDYLOSIS OF CERVICAL REGION WITHOUT MYELOPATHY OR RADICULOPATHY - M47.812 (PRIMARY) TREATMENT SPONDYLOSIS OF CERVICAL REGION WITHOUT MYELOPATHY OR RADICULOPATHY START CELEBREX CAPSULE, 100 MG, 1 CAPSULE WITH FOOD, ORALLY, ONCE A DAY, 30 DAY(S), 30 CAPSULE, REFILLS 1 MED: PAIN NORCO TABLET 5MG/325MG ORALLY HYDROCODONE/ACETAMINOPHEN (ORDERED FOR 11/03/2020) SALINE LOCK (ORDERED FOR 11/03/2020) MEDICATION: PAIN VALIUM TAB 5MG ORALLY (DIAZEPAM) (ORDERED FOR 11/03/2020) NOTES: 70-YEAR-OLD FEMALE IN FOR INITIAL PAIN CONSULT REGARDING CERVICAL NECK PAIN. GIVEN PRESENTING SYMPTOMS AND RESULTS OF PHYSICAL EXAMINATION RECOMMEND BILATERAL THERAPEUTIC CERVICAL FACET BLOCK C3-C4 C4-C5 WITH POSTPROCEDURAL FOLLOW-UP. FURTHER RECOMMEND STARTING CELEBREX 100 MG DAILY. PATIENT HAS EXPRESSED UNDERSTANDING OF AND WAS IN AGREEMENT WITH TREATMENT PLAN. GIVEN TIME TO ASK QUESTIONS AND EXPRESS CONCERNS. OTHERS NOTES: FACET JOINT INJECTION MATERIAL WAS PRINTED AND REVIEWED WITH PATIENT. PATIENT VERBALIZES UNDERDSTANDING OF PRE PROCEDURE INSTRUCTIONS REVIEWED. 10/26/2020 Jeff SCHWARTZ RN CELEBREX MEDICATION INFORMATION SHEETS PRINTED AND GIVEN TO PATIENT. 10/26/2020 Dorie SCHWARTZ RN. PROCEDURE CODES FA211 ESTABILISHED PATIENT [facility] CHARGE DISPOSITION & COMMUNICATION FOLLOW UP POST PROCEDURE (REASON: BILATERAL THERAPEUTIC CERVICAL FACET BLOCK C3-C4,C4-C5) ELECTRONICALLY SIGNED BY SANTOSH MANDEL ON 10/27/2020 AT 12:50 PM EDT DISCLAIMER : THIS IS A VISIT SUMMARY EXTRACTED FROM THE [employer] CHART. IT IS NOT A COPY OF THE [employer] PROGRESS NOTE. LELIA
== END ==
LOC: M PAIN 13:00
PROVIDERS: ATTEND Family Medicine
DX: M47.812 Spondylosis without myelopathy or radiculopathy, cervical region (principal); E78.2 Mixed hyperlipidemia; J32.9 Chronic sinusitis, unspecified; J30.9 Allergic rhinitis, unspecified; F32.9 Major depressive disorder, single episode, unspecified; F41.0 Panic disorder [episodic paroxysmal anxiety]; K21.9 Gastro-esophageal reflux disease without esophagitis; K44.9 Diaphragmatic hernia without obstruction or gangrene; G43.909 Migraine, unspecified, not intractable, without status migrainosus; F17.210 Nicotine dependence, cigarettes, uncomplicated; Z79.82 Long term (current) use of aspirin; Z79.899 Other long term (current) drug therapy; Z88.1 Allergy status to other antibiotic agents; Z88.5 Allergy status to narcotic agent

== ENCOUNTER → 2020-11-17 | Outpatient (CLI) | payer MEDICARE, OTHER | LOC: M LABSMTC 12:37 | PROVIDERS: ATTEND Anesthesiology | DX: Z01.818 Encounter for other preprocedural examination (principal); Z20.822 Contact with and (suspected) exposure to COVID-19 ==

== ENCOUNTER → 2020-11-22 | Outpatient (CLI) | payer MEDICARE, OTHER ==
[~2020-11-22] MED LIST changes: +BUPIVACAINE HCL 0.25% 10ML VIAL As Ordered ONE; +BUPIVACAINE HCL 0.25% 30ML VIAL As Ordered ONE; +ONDANSETRON 4 MG ORAL DISINTEGRATING TAB As Ordered ONE; +TRIAMCINOLONE ACETONIDE SUSP 40 MG/ML VIAL (J3301) As Ordered ONE; +diazePAM 5MG TABLET As Ordered ONE; +oxyCODONE 5MG TAB As Ordered ONE
== END ==
LOC: M PAIN 08:30
PROVIDERS: ATTEND Anesthesiology
DX: M79.18 Myalgia, other site (principal); M54.2 Cervicalgia; E78.2 Mixed hyperlipidemia; J32.9 Chronic sinusitis, unspecified; F32.9 Major depressive disorder, single episode, unspecified; K44.9 Diaphragmatic hernia without obstruction or gangrene; G43.709 Chronic migraine without aura, not intractable, without status migrainosus; F17.210 Nicotine dependence, cigarettes, uncomplicated; Z79.82 Long term (current) use of aspirin; Z79.899 Other long term (current) drug therapy; Z88.1 Allergy status to other antibiotic agents; Z88.5 Allergy status to narcotic agent
CPT/HCPCS: 20552; J3301; Q0162

== ENCOUNTER → 2020-12-08 | Outpatient (CLI) | payer MEDICARE, OTHER ==
[~2020-12-08] MED LIST changes: -BUPIVACAINE HCL 0.25% 10ML VIAL As Ordered ONE; -BUPIVACAINE HCL 0.25% 30ML VIAL As Ordered ONE; -ONDANSETRON 4 MG ORAL DISINTEGRATING TAB As Ordered ONE; -TRIAMCINOLONE ACETONIDE SUSP 40 MG/ML VIAL (J3301) As Ordered ONE; -diazePAM 5MG TABLET As Ordered ONE; -oxyCODONE 5MG TAB As Ordered ONE
--- NOTE | 2020-12-11 23:29 | ECWPNPC ---
PATIENT NAME: REYNA CABRERA : 1950 GENDER: FEMALE VISIT DATE: 12/08/2020 DISCHARGE DATE: 12/08/20 1437 VISIT LOCKED DATE TIME: PHYSICIAN: BEAR GOLDSTEIN MD PHYSICIAN PAGER NO: ACTIVE RESOURCE: BEAR GOLDSTEIN MD REASON FOR APPOINTMENT 1. POST TRIGGER POINT INJECTIONS BILATERAL BACK HISTORY OF PRESENT ILLNESS GENERAL: 70-YEAR-OLD FEMALE PATIENT WITH A HISTORY OF CHRONIC NECK PAIN. SHE HAS A TRIGGER POINT INJECTION DONE A FEW WEEKS BETTER. THE PATIENT FEELS BETTER IN THE NECK AREA AND OCCIPITAL AREA SO IT SEEMS TO BE THAT THE TRIGGER POINT IS HELPING. SHE STILL HAS HEADACHES OVER THE TEMPORAL AREA. THE PATIENT DESCRIBES THE PAIN ACHING AND CONTINUOUS WITH A PAIN SCORE RANGING FROM 4-8/10. THE PATIENT ALSO HAS A PAST HISTORY OF LOW BACK PAIN THAT HAS DONE RELATIVELY WELL AFTER A FACET BLOCK. FALL RISK SCREENING: SCREENING : NO FALLS REPORTED IN THE LAST YEAR. PAIN SCREENING: PATIENT HAS A COMPLAINT OF ACUTE OR CHRONIC PAIN :YES LOCATION OF PAIN:NECK, HEAD, LOW BACK, LEFT HIP INTENSITY OF PAIN (SCALE OF 1 TO 10):1 WHAT DOES YOUR PAIN FEEL LIKE:TENDER DURATION:CONTINOUS NURSING NOTE: -. PAIN CENTER INTAKE QUESTIONS: DO YOU HAVE A HISTORY OF MRSA? :NO DO YOU TAKE A BLOOD THINNERS? :NO DO YOU HAVE ANY BLEEDING DISORDERS? :NO ANY NEW NUMBNESS OR WEAKNESS IN YOUR LEGS OR ARMS? :NO ANY PACEMAKER,DEFIBRILLATOR, OR DORSAL COLUMN STIMULATOR? :NO DO YOU HAVE ANY RASHES OR OPEN SORES? :NO ARE YOU ALLERGIC TO IV DYE? :NO ARE YOU DIABETIC? :NO ANY NEW PROBLEMS WITH YOUR MEDICATIONS? :NO HAVE YOU RECEIVED A VACCINE IN THE PAST 30 DAYS? :NO DO YOU PLAN TO RECEIVE A VACCINE IN THE NEXT 21 DAYS? :NO DO YOU NEED ANY PRESCRIPTION? :NO DO YOU TAKE ANY IMMUNOSUPPRESSIVE MEDICATIONS? :NO DO YOU HAVE ANY KIDNEY OR LIVER DISEASE? :NO IS THERE A CHANCE YOU COULD BE ? :NO ARE YOU BREAST FEEDING? :NO CURRENT MEDICATIONS TAKING SINGULAIR 10 MG TABLET 1 TABLET ORALLY ONCE A DAY TAKING BENZONATATE 100 MG CAPSULE 1 CAPSULE ORALLY EVERY 4 HOURS NEEDED TAKING ALBUTEROL SULFATE HFA 108 (90 BASE) MCG/ACT AEROSOL SOLUTION 2 PUFFS NEEDED INHALATION EVERY 4 HRS TAKING ADVAIR DISKUS 250-50 MCG/DOSE AEROSOL POWDER BREATH ACTIVATED 1 PUFF INHALATION TWICE A DAY TAKING PAROXETINE HCL 20 MG TABLET 1 TABLET IN THE MORNING ORALLY ONCE A DAY TAKING PRESERVISION AREDS - TABLET DIRECTED ORALLY DAILY TAKING CENTRUM SILVER ULTRA WOMENS - TABLET 1 TAB ORALLY DAILY TAKING SYSTANE 0.4-0.3 % SOLUTION 1 DROP BOTH EYES OPHTHALMIC NEEDED TAKING FLONASE ALLERGY RELIEF 50 MCG/ACT SUSPENSION 1 SPRAY IN EACH NOSTRIL NASALLY ONCE A DAY TAKING VITAMIN B12 100 MCG TABLET DIRECTED ORALLY TAKING RETAINE CMC 0.5 % SOLUTION DIRECTED OPHTHALMIC TAKING OMEPRAZOLE 40 MG CAPSULE DELAYED RELEASE 1 CAPSULE ORALLY DAILY TAKING CELEBREX 100 MG CAPSULE 1 CAPSULE WITH FOOD ORALLY ONCE A DAY NOT-TAKING EXCEDRIN EXTRA STRENGTH 250-250-65 MG TABLET 2 TABLETS NEEDED FOR PAIN ORALLY NEEDED NOT-TAKING MAY USE HYDRO EYES 1 TABLET FOR DRY EYES DAILY NOT-TAKING ASPIRIN ADULT LOW DOSE 81 MG TABLET DELAYED RELEASE 1 TABLET ORALLY ONCE A DAY NOT-TAKING TYLENOL ALLERGY SINUS NOT-TAKING MAGNESIUM 100 MG CAPSULE 1 CAPSULE WITH A MEAL ORALLY ONCE A DAY NOT-TAKING PRILOSEC OTC 20 MG TABLET DELAYED RELEASE 1 TABLET 30 MINUTES BEFORE MORNING MEAL ORALLY ONCE A DAY NOT-TAKING CYCLOBENZAPRINE HCL 5 MG TABLET 1 TABLET AT BEDTIME NEEDED ORALLY ONCE A DAY NOT-TAKING RETAINE CMC 0.5 % SOLUTION 1 DROP INTO AFFECTED EYE NEEDED OPHTHALMIC 24 TIME(S) A DAY, NOTES: CURRENTLY OUT OF, WILL BE RESTARTING IN THE FUTURE NOT-TAKING MAY USE 25 MG CBD OIL 3/4 A DROPPER FUL SUBLINGUALLY DAILY, NOTES: CURRENTLY OUT OF, WILL BE RESTARTING IN THE FUTURE NOT-TAKING DICLOFENAC SODIUM 50 MG TABLET DELAYED RELEASE 1 TABLET WITH FOOD OR MILK ORALLY THREE TIMES A DAY MEDICATION LIST REVIEWED AND RECONCILED WITH THE PATIENT PAST MEDICAL HISTORY DYSLIPIDEMIA- MIXED HYPERLIPIDEMIA S/P CARDIAC CATH D/T ABN EKG RECURRENT SINUSITIS - IMPROVED S/P SURGERY ALLERGIC RHINITIS RIGHT ETHMOID TUMOR THAT WAS RESECTED IN THE EARLY RT SINUS TUMOR 1985 DEPRESSION/PANIC ATTACKS/ HIATAL HERNIA/GERD - REINDL CHRONIC PATE- MIGRAINE/CLUSTER 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 IS CURRENTLY WORKING ON QUITTING WITH PCP ARE YOU INTERESTED IN QUITTING?READY TO QUIT PREVIOUS QUIT ATTEMPTS?YES, MORE THAN 6 MONTHS AGO. COUNSELED THE PATIENT ON TOBACCO USE, CESSATION [id number]/21/2020 HOW MANY CIGARETTES A DAY DO YOU SMOKE?11-20 HOW SOON AFTER YOU WAKE UP DO YOU SMOKE YOUR FIRST CIGARETTE?WITHIN 5 MIN HOW OFTEN DO YOU SMOKE CIGARETTES?EVERY DAY PATIENT COUNSELED ON THE DANGERS OF TOBACCO USE AND URGED TO QUIT:10/26/2020 LATEX QUESTIONNAIRE LATEX ALLERGY : HAVE YOU EVER DEVELOPED ANY TYPE OF REACTION AFTER HANDLING LATEX PRODUCTS SUCH RUBBER GLOVES, CONDOMS, DIAPHRAGMS, BALLOONS, SOCKS, OR UNDERWEAR?NO LATEX ALLERGY : HAVE YOU EVER DEVELOPED ANY TYPE OF REACTION DURING OR AFTER DENTAL APPOINTMENT, VAGINAL/RECTAL EXAMINATION, SURGICAL PROCEDURE, OR ANY OTHER EXPOSURE?NO LATEX RISK : HAVE YOU EVER HAD ANY DIFFICULTY BREATHING OR HIVES AFTER EATING OR HANDLING ANY FRUITS, OR VEGETABLES; SUCH KIWI, BANANAS, STONE FRUITS, OR CHESTNUTSNO LATEX RISK : DO YOU HAVE A PREVIOUS PERSONAL HISTORY OF MORE THAN NINE SURGERIES, SPINA BIFIDA, OR REPEATED CATHERIZATIONS? NO LATEX RISK : ARE YOU FREQUENTLY EXPOSED TO LATEX PRODUCTS IN YOUR OCCUPATION?YES DATE ASKED : 10/26/2020 ALCOHOL USE: NO. ALCOHOL SCREENING DID YOU HAVE A DRINK CONTAINING ALCOHOL IN THE PAST YEAR?NO POINTS0 INTERPRETATIONNEGATIVE RECREATIONAL DRUG USE DRUG USE?NO CAFFEINE CAFFEINE USE?YES HOW OFTEN AND HOW MUCH? 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 EXERCISE: NONE. MARITAL STATUS: .. OTHERS AT HOME: CHILD. - PFS REFERRAL NEEDED?NO CLERGY REFERRAL NEEDED?NO PUBLIC HEALTH REFERRAL NEEDED?NO HAS THE PATIENT BEEN EDUCATED REGARDING HIS/HER PLAN OF CARE?YES HAS THE PATIENT BEEN EDUCATED REGARDING PAIN, THE RISK FOR PAIN, THE IMPORTANCE OF EFFECTIVE PAIN MANAGEMENT, AND THE PAIN ASSESSMENT PROCESS?YES ADVANCE DIRECTIVE ADVANCE DIRECTIVE DISCUSSED WITH PATIENT:YES PT DOES NOT HAVE ANY ADVANCED DIRECTIVES. SHE DECLINES INFORMATION ON HCP AT THIS TIME. REVIEW OF SYSTEMS CONSTITUTIONAL: ANY RECENT FEVER NO . CHILLS NO . WEIGHT CHANGE OF UNKNOWN REASONS NO . GASTROENTEROLOGY: NEW UNEXPLAINABLE CHANGES IN BOWEL CONTROL NO . CONSTIPATION NO . GENITOURINARY: ANY NEW CHANGE IN BLADDER CONTROL? NO . NEUROLOGY: NEW ONSET DIZZINESS OR NEUROLOGICAL CHANGES NOT MENTIONED NO . NEW NUMBNESS OR PAIN PATTERNS NOT MENTIONED AND PERTINENT TO TODAY'S VISIT NO . CARDIOLOGY: NEW CHEST PRESSURE NO . PATIENT DENIES NO . RESPIRATORY: UNEXPLAINABLE COUGH NO . NEW SHORTNESS OF BREATH NO . VITAL SIGNS WT 146.4 LBS, WT-KG 66.41 KG, HT 64 IN, BMI 25.13 INDEX, BP 139/73 MM HG, HR 80 /MIN, RR 18 /MIN, TEMP 97.5 F, OXYGEN SAT % 97%, SAFE IN ENV? (Y/N) YES, [place] [address]/ 1344 REVIEWED. Gabriela BARNES RN. EXAMINATION GENERAL: THE PATIENT IS ALERT, ORIENTED TIMES THREE AND COOPERATIVE. MRI OF THE CERVCIAL SPIONE DATED 08/19/2020 [facility] FACET ARTHROAPTHY CHANGES AT MULTIPLE FACET JOINTS. ASSESSMENTS OTHER CHRONIC PAIN - G89.29 (PRIMARY) MYALGIA - M79.10 MYOFASCIAL PAIN - M79.18 FACET ARTHROPATHY, CERVICAL - M47.812 LUMBAR FACET ARTHROPATHY - M47.816 TREATMENT OTHER CHRONIC PAIN PAIN PROCEDURE [id number] OF PROCEDURE1PROCEDURE:TRIGGER POINT INJECTIONS BILATERAL NECKAMOUNT OF PRE SEDATEOXYCODONE 10MG, ZOFRAN 4MG, VALIUM 5MGRESULT:WORKED WELL CLINICAL NOTES: I DISCUSSED ALTERNATIVES WITH MS. CABRERA. I WILL REFER HER TO THE NEUROLOGICAL GROUP FOR AN EVALUATION FO THE HEADACHES. I NEED HELP UNDERSTANDING THE FRONTAL AND TEMPORAL HEADACHES, THE POSSIBLE REASON FOR THEM AND A POSSIBLE NAME FOR THESE HEADACHES AND ADVISE FOR POSSIBLE TREATMENTS. IT SEEMS THAT THE BACK OF THE HEAD, OCCIPITAL AREA, WAS HELPED WITH THE TRIGGER POINTS. I WILL SEE HER IN A FOLLOW UP. IF THE PAIN COMES BACK SOONER, WE CAN OVER BOOK AND SEE HER SOONER. IF THE PAIN SHE WANTS TO ADDRESS IS THE NECK PAIN, I WILL DISCUSS WITH HER IF WE REPEAT THE TRIGGER POINT OR WORK WITH HER FACETS, WHICH MY PLAN WOULD BE BILATERAL DIAGNOSTIC C2-C3, C3-C4 #1. IF THE COMPLAINT IS LOWER BACK, I WILL EXAMINE HER AND CONSIDER A BILATERAL L4-L5 ,L5-S1 THERAPEUTIC BLOCK WHICH I HAVE DONE BEFORE AND THEY LAST FOR HER FOR MANY MONTHS. THE LAST ONE HELPED OVER A YEAR. THE PATIENT REPORTS UNDERSTANDING AND AGREES WITH THE PLAN. I, SHMUEL JOHNSTON, DOCUMENTED THE ABOVE INFORMATION ACTING A SCRIBE FOR DR. GOLDSTEIN. I HAVE REVIEWED THE ABOVE DOCUMENT, WRITTEN BY SHMUEL JOHNSTON, CAR WASH MANAGER, AND I VERIFY THAT IT IS ACCURATE. [facility] RE[facility]:HEADACHES VISIT CODES PROCEDURE CODES FA211 ESTABILISHED PATIENT [facility] CHARGE 34235 OFFICE/OUTPATIENT VISIT EST DISPOSITION & COMMUNICATION FOLLOW UP NEXT AVAILABLE (REASON: NECK AND BACK PAIN) ELECTRONICALLY SIGNED BY BEAR GOLDSTEIN MD, MD ON 12/11/2020 AT 08:20 PM EDT DISCLAIMER : THIS IS A VISIT SUMMARY EXTRACTED FROM THE [employer] [facility] CHART. IT IS NOT A COPY OF THE [employer] PROGRESS NOTE. LELIA
== END ==
LOC: M PAIN 13:45
PROVIDERS: ATTEND Anesthesiology
DX: G89.29 Other chronic pain (principal); M79.10 Myalgia, unspecified site; M79.18 Myalgia, other site; M47.812 Spondylosis without myelopathy or radiculopathy, cervical region; E78.5 Hyperlipidemia, unspecified; J30.9 Allergic rhinitis, unspecified; F32.9 Major depressive disorder, single episode, unspecified; F41.0 Panic disorder [episodic paroxysmal anxiety]; K21.9 Gastro-esophageal reflux disease without esophagitis; K44.9 Diaphragmatic hernia without obstruction or gangrene; G43.709 Chronic migraine without aura, not intractable, without status migrainosus; F17.210 Nicotine dependence, cigarettes, uncomplicated; Z79.899 Other long term (current) drug therapy; Z88.5 Allergy status to narcotic agent

== ENCOUNTER → 2021-02-11 | Outpatient (CLI) | payer MEDICARE, OTHER ==
[2021-02-11 09:29] LABS: BASO # 0.1 10^3/uL (0.0-0.2); BASO % 0.9 % (0.0-1.0); EOS # 0.1 10^3/uL (0.0-0.5); EOS % 2.1 % (0.0-3.0); HEMATOCRIT 47.2 % (36.0-47.0); LYMPH # 1.8 10^3/uL (1.5-5.0); LYMPH % 27.1 % (24.0-44.0); MEAN CORPUSCULAR HEMOGLOBIN 30.5 pg (27.0-33.0); MEAN CORPUSCULAR HGB CONC 33.9 g/dl (32.0-36.5); MEAN CORPUSCULAR VOLUME 90.1 fl (80.0-96.0); MONO # 0.3 10^3/uL (0.0-0.8); NEUTROPHILS # 4.3 10^3/uL (1.5-8.5); NEUTROPHILS % 64.6 % (36.0-66.0); PLATELET COUNT, AUTOMATED 204 10^3/uL (150-450); RED BLOOD COUNT 5.24 10^6/uL (4.00-5.40); WHITE BLOOD COUNT 6.6 10^3/uL (4.0-10.0)
[2021-02-11 10:05] LABS: ERYTHROCYTE SEDIMENTATION RATE 5 mm/hr (0-30)
[2021-02-11 10:10] LABS: ALBUMIN 3.7 GM/DL (3.2-5.2); ALT/SGPT 23 U/L (12-78); BILIRUBIN,TOTAL 0.7 MG/DL (0.2-1.0); BLOOD UREA NITROGEN 12 MG/DL (7-18); CALCIUM LEVEL 9.8 MG/DL (8.8-10.2); CARBON DIOXIDE LEVEL 30 MEQ/L (21-32); CHLORIDE LEVEL 107 MEQ/L (98-107); CREATININE FOR GFR 0.79 MG/DL (0.55-1.30); GLOMERULAR FILTRATION RATE > 60.0 (>45); GLUCOSE, FASTING 94 MG/DL (70-100); POTASSIUM SERUM 4.9 MEQ/L (3.5-5.1); RHEUMATOID FACTOR QUANT < 10.0 IU/ML (<15.0); SODIUM LEVEL 140 MEQ/L (136-145); THYROID STIMULATING HORMONE 0.701 uIU/ML (0.358-3.740); TOTAL PROTEIN 6.6 GM/DL (6.4-8.2)
[2021-02-13 10:13] LABS: TOTAL 25(OH) VITAMIN D 22.6 NG/ML (30.0-100.0)
[2021-02-13 13:09] LABS: ANTINUCLEAR ANTIBODIES DIRECT Negative (Negative)
== END ==
LOC: M LAB 08:16
PROVIDERS: ATTEND Psychiatry & Neurology Neurology
DX: R51.9 Headache, unspecified (principal); Z79.899 Other long term (current) drug therapy

== ENCOUNTER → 2021-02-11 | Outpatient (CLI) | payer MEDICARE, OTHER | LOC: M LAB 08:19 | PROVIDERS: ATTEND Psychiatry & Neurology Neurology | DX: Z53.20 Procedure and treatment not carried out because of patient's decision for unspecified reasons (principal) ==

== ENCOUNTER → 2021-02-11 | Outpatient (CLI) | payer MEDICARE, OTHER ==
[2021-02-11 09:28] LABS: HEMATOCRIT 46.4 % (36.0-47.0); HEMOGLOBIN 15.9 g/dl (12.0-15.5); MEAN CORPUSCULAR HEMOGLOBIN 30.6 pg (27.0-33.0); MEAN CORPUSCULAR HGB CONC 34.3 g/dl (32.0-36.5); MEAN CORPUSCULAR VOLUME 89.4 fl (80.0-96.0); PLATELET COUNT, AUTOMATED 198 10^3/uL (150-450); RED BLOOD COUNT 5.19 10^6/uL (4.00-5.40); WHITE BLOOD COUNT 6.7 10^3/uL (4.0-10.0)
[2021-02-11 10:05] LABS: ERYTHROCYTE SEDIMENTATION RATE 5 mm/hr (0-30)
[2021-02-11 10:10] LABS: ALBUMIN 3.7 GM/DL (3.2-5.2); ALT/SGPT 23 U/L (12-78); BILIRUBIN,TOTAL 0.7 MG/DL (0.2-1.0); BLOOD UREA NITROGEN 12 MG/DL (7-18); CALCIUM LEVEL 10.1 MG/DL (8.8-10.2); CARBON DIOXIDE LEVEL 30 MEQ/L (21-32); CHLORIDE LEVEL 107 MEQ/L (98-107); CHOLESTEROL LEVEL 224 MG/DL (<200); CREATININE FOR GFR 0.76 MG/DL (0.55-1.30); GLOMERULAR FILTRATION RATE > 60.0 (>45); GLUCOSE, FASTING 90 MG/DL (70-100); HDL CHOLESTEROL 40 MG/DL (>40); LDL CHOLESTEROL 143 MG/DL (<100); NON-HDL-C 184 MG/DL; POTASSIUM SERUM 4.8 MEQ/L (3.5-5.1); RHEUMATOID FACTOR QUANT < 10.0 IU/ML (<15.0); SODIUM LEVEL 141 MEQ/L (136-145); TOTAL PROTEIN 6.7 GM/DL (6.4-8.2); TRIGLYCERIDES LEVEL 207 MG/DL (<150); URIC ACID 4.1 MG/DL (2.6-6.0)
[2021-02-14 00:07] LABS: ANTINUCLEAR ANTIBODIES DIRECT Negative (Negative); CYCLIC CITRULLINATED PEPTIDE 8 units (0-19)
== END ==
LOC: M LAB 08:22
PROVIDERS: ATTEND Physician Assistant Medical
DX: E55.9 Vitamin D deficiency, unspecified (principal); J44.9 Chronic obstructive pulmonary disease, unspecified; E78.5 Hyperlipidemia, unspecified; M47.895 Other spondylosis, thoracolumbar region; E51.9 Thiamine deficiency, unspecified; Z79.899 Other long term (current) drug therapy

== ENCOUNTER → 2021-03-14 | Outpatient (CLI) | payer MEDICARE, OTHER | LOC: M PAIN 13:00 | PROVIDERS: ATTEND Nurse Practitioner Family | DX: M79.10 Myalgia, unspecified site (principal); M47.816 Spondylosis without myelopathy or radiculopathy, lumbar region; M47.812 Spondylosis without myelopathy or radiculopathy, cervical region; K21.9 Gastro-esophageal reflux disease without esophagitis; G43.909 Migraine, unspecified, not intractable, without status migrainosus; F17.210 Nicotine dependence, cigarettes, uncomplicated; Z86.59 Personal history of other mental and behavioral disorders; Z88.5 Allergy status to narcotic agent; Z79.899 Other long term (current) drug therapy ==

== ENCOUNTER → 2021-06-15 | Outpatient (CLI) | payer MEDICARE, OTHER | LOC: M PAIN 14:30 | PROVIDERS: ATTEND Nurse Practitioner Family | DX: M79.18 Myalgia, other site (principal); E78.2 Mixed hyperlipidemia; F32.A Depression, unspecified; F41.0 Panic disorder [episodic paroxysmal anxiety]; K44.9 Diaphragmatic hernia without obstruction or gangrene; K21.9 Gastro-esophageal reflux disease without esophagitis; G43.709 Chronic migraine without aura, not intractable, without status migrainosus; F17.210 Nicotine dependence, cigarettes, uncomplicated; Z79.899 Other long term (current) drug therapy; Z88.5 Allergy status to narcotic agent ==

== ENCOUNTER → 2021-07-09 | Outpatient (CLI) | payer MEDICARE, OTHER ==
[2021-07-09 10:52] LABS: BASO % 0.4 % (0.0-1.0); EOS % 0.3 % (0.0-3.0); HEMATOCRIT 43.8 % (36.0-47.0); HEMOGLOBIN 14.7 g/dl (12.0-15.5); LYMPH # 3.1 10^3/uL (1.5-5.0); LYMPH % 34.4 % (24.0-44.0); MEAN CORPUSCULAR HGB CONC 33.6 g/dl (32.0-36.5); MEAN CORPUSCULAR VOLUME 89.4 fl (80.0-96.0); MONO # 0.5 10^3/uL (0.0-0.8); NEUTROPHILS # 5.3 10^3/uL (1.5-8.5); NEUTROPHILS % 59.7 % (36.0-66.0); PLATELET COUNT, AUTOMATED 207 10^3/uL (150-450)
[2021-07-09 12:04] LABS: ALBUMIN 3.6 GM/DL (3.2-5.2); ALT/SGPT 20 U/L (12-78); BILIRUBIN,TOTAL 0.7 MG/DL (0.2-1.0); BLOOD UREA NITROGEN 14 MG/DL (7-18); CALCIUM LEVEL 9.3 MG/DL (8.8-10.2); CARBON DIOXIDE LEVEL 30 MEQ/L (21-32); CHLORIDE LEVEL 109 MEQ/L (98-107); CHOLESTEROL LEVEL 204 MG/DL (<200); CHOLESTEROL RISK RATIO 4.636 (<5); GLOMERULAR FILTRATION RATE > 60.0 (>45); GLUCOSE, FASTING 86 MG/DL (70-100); HDL CHOLESTEROL 44 MG/DL (>40); LDL CHOLESTEROL 126 MG/DL (<100); NON-HDL-C 160 MG/DL; SODIUM LEVEL 142 MEQ/L (136-145); THYROID STIMULATING HORMONE 0.934 uIU/ML (0.358-3.740); TOTAL PROTEIN 6.2 GM/DL (6.4-8.2); TRIGLYCERIDES LEVEL 172 MG/DL (<150); URIC ACID 3.6 MG/DL (2.6-6.0)
== END ==
LOC: M LAB 10:19
DX: E55.9 Vitamin D deficiency, unspecified (principal); J44.9 Chronic obstructive pulmonary disease, unspecified; Q44.6 Cystic disease of liver; Z79.899 Other long term (current) drug therapy

== ENCOUNTER → 2021-07-26 | Outpatient (CLI) | payer MEDICARE, OTHER | LOC: M RAD 12:21 | DX: M67.432 Ganglion, left wrist (principal) ==

== ENCOUNTER → 2021-11-09 | Outpatient (CLI) | payer MEDICARE, OTHER | LOC: M LABSMTC 09:21 | PROVIDERS: ATTEND Anesthesiology | DX: Z01.818 Encounter for other preprocedural examination (principal); Z11.52 Encounter for screening for COVID-19 ==

== ENCOUNTER → 2021-11-13 | Outpatient (CLI) | payer MEDICARE, OTHER ==
[~2021-11-13] MED LIST changes: +BUPIVACAINE HCL 0.25% 10ML VIAL As Ordered ONE; +BUPIVACAINE HCL 0.25% 30ML VIAL As Ordered ONE; +TRIAMCINOLONE ACETONIDE SUSP 40 MG/ML VIAL (J3301) As Ordered ONE; +diazePAM 5MG TABLET As Ordered ONE; +oxyCODONE 5MG TAB As Ordered ONE
== END ==
LOC: M PAIN 08:30
PROVIDERS: ATTEND Anesthesiology
DX: M79.18 Myalgia, other site (principal); E78.2 Mixed hyperlipidemia; J32.9 Chronic sinusitis, unspecified; J30.9 Allergic rhinitis, unspecified; F32.A Depression, unspecified; F41.0 Panic disorder [episodic paroxysmal anxiety]; K44.9 Diaphragmatic hernia without obstruction or gangrene; K21.9 Gastro-esophageal reflux disease without esophagitis; G43.709 Chronic migraine without aura, not intractable, without status migrainosus; M85.80 Other specified disorders of bone density and structure, unspecified site; F17.210 Nicotine dependence, cigarettes, uncomplicated; Z79.899 Other long term (current) drug therapy; Z88.5 Allergy status to narcotic agent
CPT/HCPCS: 20552; J3301

== ENCOUNTER → 2021-12-22 | Outpatient (CLI) | payer MEDICARE, OTHER ==
[~2021-12-22] MED LIST changes: -BUPIVACAINE HCL 0.25% 10ML VIAL As Ordered ONE; -BUPIVACAINE HCL 0.25% 30ML VIAL As Ordered ONE; -TRIAMCINOLONE ACETONIDE SUSP 40 MG/ML VIAL (J3301) As Ordered ONE; -diazePAM 5MG TABLET As Ordered ONE; -oxyCODONE 5MG TAB As Ordered ONE
== END ==
LOC: M PAIN 14:00
PROVIDERS: ATTEND Nurse Practitioner Family
DX: M79.10 Myalgia, unspecified site (principal); G89.29 Other chronic pain; K21.9 Gastro-esophageal reflux disease without esophagitis; G43.909 Migraine, unspecified, not intractable, without status migrainosus; F17.210 Nicotine dependence, cigarettes, uncomplicated; Z86.59 Personal history of other mental and behavioral disorders; Z88.5 Allergy status to narcotic agent; Z79.899 Other long term (current) drug therapy

== ENCOUNTER → 2022-03-07 | Outpatient (CLI) | payer MEDICARE, OTHER | LOC: M PAIN 14:00 | PROVIDERS: ATTEND Anesthesiology | DX: M79.18 Myalgia, other site (principal); M79.10 Myalgia, unspecified site; E78.2 Mixed hyperlipidemia; J30.9 Allergic rhinitis, unspecified; F32.A Depression, unspecified; F41.0 Panic disorder [episodic paroxysmal anxiety]; K44.9 Diaphragmatic hernia without obstruction or gangrene; K21.9 Gastro-esophageal reflux disease without esophagitis; G43.709 Chronic migraine without aura, not intractable, without status migrainosus; F17.210 Nicotine dependence, cigarettes, uncomplicated; Z79.899 Other long term (current) drug therapy; Z88.5 Allergy status to narcotic agent ==

== ENCOUNTER → 2022-05-16 | Outpatient (CLI) | payer MEDICARE, OTHER | LOC: M PAIN 14:45 | PROVIDERS: ATTEND Anesthesiology | DX: M79.18 Myalgia, other site (principal); M54.50 Low back pain, unspecified; G89.29 Other chronic pain; K21.9 Gastro-esophageal reflux disease without esophagitis; G43.909 Migraine, unspecified, not intractable, without status migrainosus; F17.210 Nicotine dependence, cigarettes, uncomplicated; Z86.59 Personal history of other mental and behavioral disorders; Z88.5 Allergy status to narcotic agent; Z79.899 Other long term (current) drug therapy ==

== ENCOUNTER → 2022-06-15 | Outpatient (CLI) | payer MEDICARE, OTHER | LOC: M LABSMTC 11:38 | PROVIDERS: ATTEND Anesthesiology | DX: Z01.812 Encounter for preprocedural laboratory examination (principal); Z20.822 Contact with and (suspected) exposure to COVID-19 ==

== ENCOUNTER → 2022-06-19 | Outpatient (CLI) | payer MEDICARE, OTHER ==
[~2022-06-19] MED LIST changes: +BUPIVACAINE HCL 0.25% 10ML VIAL As Ordered ONE; +BUPIVACAINE HCL 0.25% 30ML VIAL As Ordered ONE; +TRIAMCINOLONE ACETONIDE SUSP 40MG/ML 1ML VIAL As Ordered ONE; +diazePAM 5MG TABLET As Ordered ONE; +oxyCODONE 5MG TAB As Ordered ONE
== END ==
LOC: M PAIN 08:00
PROVIDERS: ATTEND Anesthesiology
DX: M79.18 Myalgia, other site (principal); G89.29 Other chronic pain; K21.9 Gastro-esophageal reflux disease without esophagitis; G43.909 Migraine, unspecified, not intractable, without status migrainosus; F17.210 Nicotine dependence, cigarettes, uncomplicated; Z86.59 Personal history of other mental and behavioral disorders; Z88.5 Allergy status to narcotic agent; Z79.899 Other long term (current) drug therapy
CPT/HCPCS: 20552; J3301

== ENCOUNTER → 2022-07-03 | Outpatient (CLI) | payer MEDICARE, OTHER ==
[~2022-07-03] MED LIST changes: -BUPIVACAINE HCL 0.25% 10ML VIAL As Ordered ONE; -BUPIVACAINE HCL 0.25% 30ML VIAL As Ordered ONE; -TRIAMCINOLONE ACETONIDE SUSP 40MG/ML 1ML VIAL As Ordered ONE; -diazePAM 5MG TABLET As Ordered ONE; -oxyCODONE 5MG TAB As Ordered ONE
== END ==
LOC: M RAD 14:03
PROVIDERS: ATTEND Physician Assistant Medical
DX: F17.210 Nicotine dependence, cigarettes, uncomplicated (principal)

== ENCOUNTER → 2022-07-12 | Outpatient (CLI) | payer MEDICARE, OTHER | LOC: M PAIN 13:45 | PROVIDERS: ATTEND Nurse Practitioner Family | DX: G89.29 Other chronic pain (principal); M79.10 Myalgia, unspecified site; E78.2 Mixed hyperlipidemia; J30.9 Allergic rhinitis, unspecified; J32.9 Chronic sinusitis, unspecified; F32.A Depression, unspecified; F17.210 Nicotine dependence, cigarettes, uncomplicated; F41.0 Panic disorder [episodic paroxysmal anxiety]; K21.9 Gastro-esophageal reflux disease without esophagitis; K44.9 Diaphragmatic hernia without obstruction or gangrene; Z79.899 Other long term (current) drug therapy; Z88.5 Allergy status to narcotic agent ==

== ENCOUNTER → 2022-07-16 | Outpatient (CLI) | payer MEDICARE, OTHER | LOC: M LABSMTC 07:42 | PROVIDERS: ATTEND Anesthesiology | DX: Z01.812 Encounter for preprocedural laboratory examination (principal) ==

== ENCOUNTER → 2022-07-18 | Outpatient (CLI) | payer MEDICARE, OTHER ==
[~2022-07-18] MED LIST changes: +BUPIVACAINE HCL 0.25% 10ML VIAL As Ordered ONE; +BUPIVACAINE HCL 0.25% 30ML VIAL As Ordered ONE; +TRIAMCINOLONE ACETONIDE SUSP 40MG/ML 1ML VIAL As Ordered ONE; +diazePAM 5MG TABLET As Ordered ONE; +oxyCODONE 5MG TAB As Ordered ONE
== END ==
LOC: M PAIN 08:30
PROVIDERS: ATTEND Anesthesiology
DX: M79.12 Myalgia of auxiliary muscles, head and neck (principal); E78.2 Mixed hyperlipidemia; F32.A Depression, unspecified; F41.0 Panic disorder [episodic paroxysmal anxiety]; K44.9 Diaphragmatic hernia without obstruction or gangrene; K21.9 Gastro-esophageal reflux disease without esophagitis; G43.709 Chronic migraine without aura, not intractable, without status migrainosus; F17.210 Nicotine dependence, cigarettes, uncomplicated; Z79.899 Other long term (current) drug therapy; Z88.5 Allergy status to narcotic agent
CPT/HCPCS: 20552; J3301

== ENCOUNTER → 2022-08-31 | Outpatient (CLI) | payer MEDICARE, OTHER ==
[~2022-08-31] MED LIST changes: -BUPIVACAINE HCL 0.25% 10ML VIAL As Ordered ONE; -BUPIVACAINE HCL 0.25% 30ML VIAL As Ordered ONE; -TRIAMCINOLONE ACETONIDE SUSP 40MG/ML 1ML VIAL As Ordered ONE; -diazePAM 5MG TABLET As Ordered ONE; -oxyCODONE 5MG TAB As Ordered ONE
== END ==
LOC: M PAIN 13:45
PROVIDERS: ATTEND Nurse Practitioner Family
DX: M79.10 Myalgia, unspecified site (principal); E78.2 Mixed hyperlipidemia; F32.A Depression, unspecified; F41.0 Panic disorder [episodic paroxysmal anxiety]; K44.9 Diaphragmatic hernia without obstruction or gangrene; K21.9 Gastro-esophageal reflux disease without esophagitis; G43.709 Chronic migraine without aura, not intractable, without status migrainosus; F17.210 Nicotine dependence, cigarettes, uncomplicated; Z79.899 Other long term (current) drug therapy; Z88.5 Allergy status to narcotic agent

== ENCOUNTER → 2022-12-03 | Outpatient (CLI) | payer MEDICARE, OTHER | LOC: M PAIN 13:45 | PROVIDERS: ATTEND Nurse Practitioner Family | DX: M46.1 Sacroiliitis, not elsewhere classified (principal); G89.29 Other chronic pain; E78.2 Mixed hyperlipidemia; J32.9 Chronic sinusitis, unspecified; J30.9 Allergic rhinitis, unspecified; F32.A Depression, unspecified; F41.0 Panic disorder [episodic paroxysmal anxiety]; K44.9 Diaphragmatic hernia without obstruction or gangrene; K21.9 Gastro-esophageal reflux disease without esophagitis; G43.709 Chronic migraine without aura, not intractable, without status migrainosus; F17.210 Nicotine dependence, cigarettes, uncomplicated; Z79.899 Other long term (current) drug therapy; Z88.5 Allergy status to narcotic agent ==

== ENCOUNTER → 2022-12-20 | Outpatient (CLI) | payer MEDICARE, OTHER | LOC: M PLAIMG 13:07 | PROVIDERS: ATTEND Nurse Practitioner Family | DX: M53.3 Sacrococcygeal disorders, not elsewhere classified (principal) ==

== ENCOUNTER 2023-01-23 11:27 | Day surgery (SDC) | payer MEDICARE, OTHER ==
[~2023-01-23] VITALS: Ht 162.6 cm; Wt 64.9 kg
[~2023-01-23 11:27] MED LIST changes: +ALBU8.5H; +BAYE81TA10 PO; +BSS IRRIG/VANCO(10MG)/TOBRA(5MG)/EPINEPH(1:1000-0.5CC)500ML BAG-ORONLY IR ONE; +CEFUROXIME 1MG/0.1ML INTRACAMERAL INJ As Ordered ONE; +CYCLOPENTOLATE 1% OPHTH SOLN 2ML BTL OS SCH; +FAMO20TA5; +LIDOCAINE 1% SDV 5ML VIAL As Ordered ONE; +LIDOCAINE 3.5 % 1ML OPHTH TOPICAL GEL OU ONE; +MONT10TA97; +OFLOXACIN 0.3 % (OCUFLOX) OPTH SOL 5ML OS ONE; +OMEP40CA5; +PARO30TA4; +PHENYLEPHRINE 10% OPHTH SOL 5ML OS PRN; +PHENYLEPHRINE 2.5% OPHTH SOL 2ML OS SCH; +TIZA2TA; +TROPICAMIDE 1% OPHTH SOLN 15ML OS SCH; +ZONI50CA11 PO
[2023-01-23] MEDS ORDERED: MIDAZOLAM INJ 2MG/2ML VIAL As Ordered ONE (11:40)
[2023-01-23] MEDS ORDERED: fentaNYL 100 MCG/2 ML INJECTION As Ordered ONE (11:41)
[2023-01-23] MEDS ORDERED: ADV100INH INH (12:34)
[2023-01-23] MEDS ORDERED: MV-M1TAB13 PO (12:34)
[2023-01-23 13:30] VITALS: BP 161/88; TEMP 97.2; O2SAT 96
== END 2023-01-23 14:06 | disposition home or self-care (01) ==
LOC: M SDC 11:27
PROVIDERS: ATTEND Ophthalmology
DX: H25.12 Age-related nuclear cataract, left eye (principal); J44.9 Chronic obstructive pulmonary disease, unspecified; I72.0 Aneurysm of carotid artery; F17.210 Nicotine dependence, cigarettes, uncomplicated; Z79.899 Other long term (current) drug therapy
CPT/HCPCS: 66984; 92015; J0697; J2250; J3010; V2632

== ENCOUNTER 2023-02-20 10:54 | Day surgery (SDC) | payer MEDICARE, OTHER ==
[~2023-02-20] VITALS: Ht 162.6 cm; Wt 66.1 kg
[~2023-02-20 10:54] MED LIST changes: +BENZ-18 PO; +CYCLOPENTOLATE 1% OPHTH SOLN 2ML BTL OD SCH; -CYCLOPENTOLATE 1% OPHTH SOLN 2ML BTL OS SCH; +MV-M1TAB13 PO; +OFLOXACIN 0.3 % (OCUFLOX) OPTH SOL 5ML OD ONE; -OFLOXACIN 0.3 % (OCUFLOX) OPTH SOL 5ML OS ONE; +PHENYLEPHRINE 10% OPHTH SOL 5ML OD PRN; -PHENYLEPHRINE 10% OPHTH SOL 5ML OS PRN; +PHENYLEPHRINE 2.5% OPHTH SOL 2ML OD SCH; -PHENYLEPHRINE 2.5% OPHTH SOL 2ML OS SCH; +PRES10CA2 PO; +TROPICAMIDE 1% OPHTH SOLN 15ML OD SCH; -TROPICAMIDE 1% OPHTH SOLN 15ML OS SCH
[2023-02-20] MEDS ORDERED: MIDAZOLAM INJ 2MG/2ML VIAL As Ordered ONE (13:16)
[2023-02-20] MEDS ORDERED: fentaNYL 100 MCG/2 ML INJECTION As Ordered ONE (13:16)
[2023-02-20 14:18] VITALS: BP 133/75; TEMP 97.7; O2SAT 94
== END 2023-02-20 14:32 | disposition home or self-care (01) ==
LOC: M SDC 10:54
PROVIDERS: ATTEND Ophthalmology
DX: H26.9 Unspecified cataract (principal); J44.9 Chronic obstructive pulmonary disease, unspecified; F17.210 Nicotine dependence, cigarettes, uncomplicated; I67.1 Cerebral aneurysm, nonruptured; Z79.899 Other long term (current) drug therapy; Z79.82 Long term (current) use of aspirin; G43.909 Migraine, unspecified, not intractable, without status migrainosus
CPT/HCPCS: 66984; 92015; J0697; J2250; J3010; V2632

== ENCOUNTER → 2023-04-05 | Outpatient (CLI) | payer MEDICARE, OTHER ==
[~2023-04-05] MED LIST changes: -BSS IRRIG/VANCO(10MG)/TOBRA(5MG)/EPINEPH(1:1000-0.5CC)500ML BAG-ORONLY IR ONE; -CEFUROXIME 1MG/0.1ML INTRACAMERAL INJ As Ordered ONE; -CYCLOPENTOLATE 1% OPHTH SOLN 2ML BTL OD SCH; -LIDOCAINE 1% SDV 5ML VIAL As Ordered ONE; -LIDOCAINE 3.5 % 1ML OPHTH TOPICAL GEL OU ONE; +NORCO, ANEXSIA 5/325MG TABLET (HYDROcodone/ACETAMINOPHEN) As Ordered ONE; -OFLOXACIN 0.3 % (OCUFLOX) OPTH SOL 5ML OD ONE; -PHENYLEPHRINE 10% OPHTH SOL 5ML OD PRN; -PHENYLEPHRINE 2.5% OPHTH SOL 2ML OD SCH; +TRIAMCINOLONE ACETONIDE SUSP 40MG/ML 1ML VIAL As Ordered ONE; -TROPICAMIDE 1% OPHTH SOLN 15ML OD SCH; +diazePAM 2 MG TAB As Ordered ONE
== END ==
LOC: M PAIN 10:00
PROVIDERS: ATTEND Anesthesiology
DX: M79.18 Myalgia, other site (principal); E78.2 Mixed hyperlipidemia; F32.A Depression, unspecified; F41.0 Panic disorder [episodic paroxysmal anxiety]; G43.909 Migraine, unspecified, not intractable, without status migrainosus; G89.29 Other chronic pain; F17.210 Nicotine dependence, cigarettes, uncomplicated; Z79.899 Other long term (current) drug therapy; Z88.5 Allergy status to narcotic agent
CPT/HCPCS: 20552; J0665; J3301

== ENCOUNTER → 2023-04-19 | Outpatient (CLI) | payer MEDICARE, OTHER ==
[~2023-04-19] MED LIST changes: -NORCO, ANEXSIA 5/325MG TABLET (HYDROcodone/ACETAMINOPHEN) As Ordered ONE; -TRIAMCINOLONE ACETONIDE SUSP 40MG/ML 1ML VIAL As Ordered ONE; -diazePAM 2 MG TAB As Ordered ONE
== END ==
LOC: M PAIN 14:30
PROVIDERS: ATTEND Nurse Practitioner Family
DX: M79.12 Myalgia of auxiliary muscles, head and neck (principal); G89.29 Other chronic pain; F17.210 Nicotine dependence, cigarettes, uncomplicated; Z79.899 Other long term (current) drug therapy; Z88.5 Allergy status to narcotic agent

== ENCOUNTER → 2023-05-22 | Outpatient (CLI) | payer MEDICARE, OTHER | LOC: M PAIN 16:00 | PROVIDERS: ATTEND Anesthesiology | DX: M96.1 Postlaminectomy syndrome, not elsewhere classified (principal); M48.061 Spinal stenosis, lumbar region without neurogenic claudication; M47.816 Spondylosis without myelopathy or radiculopathy, lumbar region; G89.29 Other chronic pain; E78.2 Mixed hyperlipidemia; F32.A Depression, unspecified; F41.0 Panic disorder [episodic paroxysmal anxiety]; G43.709 Chronic migraine without aura, not intractable, without status migrainosus; F17.210 Nicotine dependence, cigarettes, uncomplicated; Z79.82 Long term (current) use of aspirin; Z79.899 Other long term (current) drug therapy; Z88.5 Allergy status to narcotic agent ==

== ENCOUNTER → 2023-06-06 | Outpatient (CLI) | payer MEDICARE, OTHER ==
[~2023-06-06] MED LIST changes: +TRIAMCINOLONE ACETONIDE SUSP 40MG/ML 1ML VIAL As Ordered ONE
== END ==
LOC: M PAIN 12:45
PROVIDERS: ATTEND Anesthesiology
DX: M79.18 Myalgia, other site (principal); M54.50 Low back pain, unspecified; E78.2 Mixed hyperlipidemia; G43.709 Chronic migraine without aura, not intractable, without status migrainosus; F17.210 Nicotine dependence, cigarettes, uncomplicated; Z79.82 Long term (current) use of aspirin; Z79.899 Other long term (current) drug therapy; Z88.5 Allergy status to narcotic agent
CPT/HCPCS: 20552; J0665; J3301

== ENCOUNTER → 2023-07-05 | Outpatient (CLI) | payer MEDICARE, OTHER ==
[~2023-07-05] MED LIST changes: -TRIAMCINOLONE ACETONIDE SUSP 40MG/ML 1ML VIAL As Ordered ONE
== END ==
LOC: M RAD 08:51
PROVIDERS: ATTEND Anesthesiology
DX: M48.061 Spinal stenosis, lumbar region without neurogenic claudication (principal); M51.36 Other intervertebral disc degeneration, lumbar region

== ENCOUNTER → 2023-07-10 | Outpatient (CLI) | payer MEDICARE, OTHER | LOC: M PAIN 16:00 | PROVIDERS: ATTEND Anesthesiology | DX: M48.061 Spinal stenosis, lumbar region without neurogenic claudication (principal); M51.16 Intervertebral disc disorders with radiculopathy, lumbar region; G89.29 Other chronic pain; E78.2 Mixed hyperlipidemia; K21.9 Gastro-esophageal reflux disease without esophagitis; G43.709 Chronic migraine without aura, not intractable, without status migrainosus; F17.210 Nicotine dependence, cigarettes, uncomplicated; Z79.82 Long term (current) use of aspirin; Z79.899 Other long term (current) drug therapy; Z88.5 Allergy status to narcotic agent ==

== ENCOUNTER → 2023-10-11 | Outpatient (CLI) | payer MEDICARE, OTHER | LOC: M RAD 13:31 | PROVIDERS: ATTEND Physician Assistant Medical | DX: Z12.2 Encounter for screening for malignant neoplasm of respiratory organs (principal); F17.210 Nicotine dependence, cigarettes, uncomplicated ==

== ENCOUNTER → 2023-10-14 | Outpatient (CLI) | payer MEDICARE, OTHER | LOC: M PAIN 14:30 | PROVIDERS: ATTEND Nurse Practitioner Family | DX: M51.16 Intervertebral disc disorders with radiculopathy, lumbar region (principal); M48.00 Spinal stenosis, site unspecified; E78.5 Hyperlipidemia, unspecified; G43.909 Migraine, unspecified, not intractable, without status migrainosus; M81.0 Age-related osteoporosis without current pathological fracture; F17.200 Nicotine dependence, unspecified, uncomplicated; Z79.1 Long term (current) use of non-steroidal anti-inflammatories (NSAID); Z79.51 Long term (current) use of inhaled steroids; Z79.52 Long term (current) use of systemic steroids; Z79.82 Long term (current) use of aspirin; Z79.899 Other long term (current) drug therapy; Z88.5 Allergy status to narcotic agent ==

== ENCOUNTER → 2024-01-03 | Outpatient (CLI) | payer MEDICARE, OTHER ==
[~2024-01-03] MED LIST changes: +ISOVUE-M 300 61% 15ML VIAL As Ordered ONE; +LIDOCAINE 1% SDV 30ML VIAL As Ordered ONE; +NORCO, ANEXSIA 5/325MG TABLET (HYDROcodone/ACETAMINOPHEN) As Ordered ONE; +ONDANSETRON 4MG ORAL DISINTEGRATING TAB As Ordered ONE; +dexAMETHasone 10MG/1ML VIAL PRES.FREE As Ordered ONE; +diazePAM 5MG TABLET As Ordered ONE
== END ==
LOC: M PAIN 10:00
PROVIDERS: ATTEND Anesthesiology
DX: M51.16 Intervertebral disc disorders with radiculopathy, lumbar region (principal); G89.29 Other chronic pain; E78.2 Mixed hyperlipidemia; G43.709 Chronic migraine without aura, not intractable, without status migrainosus; F17.210 Nicotine dependence, cigarettes, uncomplicated; Z79.82 Long term (current) use of aspirin; Z79.899 Other long term (current) drug therapy; Z88.5 Allergy status to narcotic agent
CPT/HCPCS: 64483; 64484; J0665; J1100; Q9967

== ENCOUNTER → 2024-02-03 | Outpatient (CLI) | payer MEDICARE, OTHER ==
[~2024-02-03] MED LIST changes: -ISOVUE-M 300 61% 15ML VIAL As Ordered ONE; -LIDOCAINE 1% SDV 30ML VIAL As Ordered ONE; -NORCO, ANEXSIA 5/325MG TABLET (HYDROcodone/ACETAMINOPHEN) As Ordered ONE; -ONDANSETRON 4MG ORAL DISINTEGRATING TAB As Ordered ONE; -dexAMETHasone 10MG/1ML VIAL PRES.FREE As Ordered ONE; -diazePAM 5MG TABLET As Ordered ONE
== END ==
LOC: M PAIN 14:00
PROVIDERS: ATTEND Nurse Practitioner Family
DX: G89.29 Other chronic pain (principal); M96.1 Postlaminectomy syndrome, not elsewhere classified; M48.061 Spinal stenosis, lumbar region without neurogenic claudication; E78.2 Mixed hyperlipidemia; F32.A Depression, unspecified; F41.0 Panic disorder [episodic paroxysmal anxiety]; K21.9 Gastro-esophageal reflux disease without esophagitis; G43.709 Chronic migraine without aura, not intractable, without status migrainosus; F17.210 Nicotine dependence, cigarettes, uncomplicated; Z79.82 Long term (current) use of aspirin; Z79.899 Other long term (current) drug therapy; Z88.5 Allergy status to narcotic agent

== ENCOUNTER → 2024-05-08 | Outpatient (CLI) | payer MEDICARE, OTHER ==
[~2024-05-08] MED LIST changes: +ADVA1AER8 INH
== END ==
LOC: M PAIN 11:30
PROVIDERS: ATTEND Nurse Practitioner Family
DX: G89.29 Other chronic pain (principal); M96.1 Postlaminectomy syndrome, not elsewhere classified; M48.061 Spinal stenosis, lumbar region without neurogenic claudication; E78.2 Mixed hyperlipidemia; F32.A Depression, unspecified; F41.0 Panic disorder [episodic paroxysmal anxiety]; K21.9 Gastro-esophageal reflux disease without esophagitis; G43.709 Chronic migraine without aura, not intractable, without status migrainosus; F17.210 Nicotine dependence, cigarettes, uncomplicated; Z79.82 Long term (current) use of aspirin; Z79.899 Other long term (current) drug therapy; Z88.5 Allergy status to narcotic agent

== ENCOUNTER → 2024-07-22 | Outpatient (CLI) | payer MEDICARE, OTHER ==
[~2024-07-22] MED LIST changes: +ISOVUE-370 76% 100ML VIAL As Ordered ONE
== END ==
LOC: M RAD 16:36
PROVIDERS: ATTEND Psychiatry & Neurology Neurology
DX: I72.0 Aneurysm of carotid artery (principal)
CPT/HCPCS: 70496; 70498; Q9967

== ENCOUNTER → 2024-10-21 | Outpatient (CLI) | payer MEDICARE, OTHER ==
[~2024-10-21] MED LIST changes: -ISOVUE-370 76% 100ML VIAL As Ordered ONE
== END ==
LOC: M WHC 10:17
PROVIDERS: ATTEND Physician Assistant Medical
DX: M81.0 Age-related osteoporosis without current pathological fracture (principal); Z12.31 Encounter for screening mammogram for malignant neoplasm of breast; R92.313 Mammographic fatty tissue density, bilateral breasts; M85.89 Other specified disorders of bone density and structure, multiple sites

== ENCOUNTER → 2024-10-26 | Outpatient (CLI) | payer MEDICARE, OTHER | LOC: M RAD 15:12 | PROVIDERS: ATTEND Physician Assistant Medical | DX: F17.210 Nicotine dependence, cigarettes, uncomplicated (principal); J84.10 Pulmonary fibrosis, unspecified; J43.9 Emphysema, unspecified; J98.11 Atelectasis; K76.89 Other specified diseases of liver ==

== ENCOUNTER → 2024-12-11 | Outpatient (CLI) | payer MEDICARE, OTHER | LOC: M WHC 09:22 | PROVIDERS: ATTEND Physician Assistant Medical | DX: R10.84 Generalized abdominal pain (principal); N28.1 Cyst of kidney, acquired ==